=== PATIENT | male | born 1940 | race Caucasian/White ===

== ENCOUNTER 2023-01-02 19:21 | Outpatient (REF) | payer MEDICARE, SELFPAY ==
[2023-01-02 14:44] LABS: Procalcitonin < 0.1 ng/mL
--- OUTSIDE RECORDS SUMMARY | 2023-01-02 19:23 | XMS_ITS | Continuity of Care Document ---
Author Name Unknown Organization [facility] Address [address] [place] [address] Care Team Providers Care Editor Greeting Card Name Role Phone Fazal Ponce Primary Care Physician Encounter NCTY_[place] Date(s): 12/15/22 - 12/15/22 [facility] [address] [place] [address] Encounter Diagnosis Lung nodule(Discharge Diagnosis) - 12/15/22 Discharge Disposition: Home or Self Care Attending Physician: Fazal Ponce DO Admitting Physician: Fazal Ponce DO Allergies, Adverse Reactions, Alerts No Known Medication Allergies Assessment and Plan Future Appointments Future Scheduled Tests Radiology* CT Chest w/o Contrast 12/07/22 Immunizations Given and Recorded Vaccine Date Status Refusal Reason SARS-CoV-2 (COVID-19) mRNA-1273 vaccine 06/06/21 R ecorded SARS-CoV-2 (COVID-19) mRNA-1273 vaccine 10/06/20 R ecorded influenza, unspecified formulation 10/13/20 Record ed influenza, unspecified formulation 04/19/20 Record ed influenza, unspecified formulation 1 05/21/18 Carson rded influenza, unspecified formulation 04/26/17 Record ed SARS-CoV-2 (COVID-19) mRNA BNT-162b2 vax 09/08/20 Recorded influenza virus vaccine, live 05/16/19 Recorded influenza virus vaccine, inactivated 05/05/16 Carson rded influenza virus vaccine, inactivated 05/04/15 Carson rded influenza virus vaccine, inactivated 05/01/14 Carson rded influenza virus vaccine, inactivated 05/15/12 Carson rded influenza virus vaccine, inactivated 05/15/11 Carson rded influenza virus vaccine, inactivated 07/29/09 Carson rded influenza virus vaccine, inactivated 05/27/08 Carson rded influenza virus vaccine, inactivated 05/21/06 Carson rded influenza virus vaccine, inactivated 08/13/00 Carson rded pneumococcal 13-valent conjugate vaccine 07/29/15 Recorded tetanus/diphth/pertuss (Tdap) adult/adol 08/15/12 Recorded Novel [id number], all formulation 08/24/09 Recorded zoster vaccine live 02/03/08 Recorded pneumococcal 23-polyvalent vaccine 09/19/05 Record ed tetanus-diphth toxoids (Td) adult/adol 08/13/00 Re corded 1Result Comment: VIS given: 05-21-2018 VIS published date: TIV/QIV 03/19/2015 Administered by Dilma Hamilton, Community Nutrition Educator 05-21-2018 Medications atorvastatin 40 mg oral tablet 1 tab, Oral, Daily, # 90 tab, 3 Refill(s), [facility]acy: [facility] ([facility]) Start Date: 06/25/22 Status: Ordered Sandrine Low Dose 81 mg oral delayed release tablet 162 mg = 2 tab, Oral, Daily, # 90 tab, 0 Refill(s) Start Date: 02/02/22 Status: Ordered enalapril 5 mg oral tablet See Instructions, TAKE 1 TABLET BY MOUTH DAILY, # 90 tab, 3 Refill(s), Pharmacy: [facility] Start Date: 03/31/22 Status: Ordered meloxicam 15 mg oral tablet 15 mg = 1 tab, Oral, Daily, # 30 tab, 1 Refill(s), Pharmacy: [facility] Start Date: 12/12/22 Status: Ordered Metoprolol Tartrate 50 mg oral tablet 1 tab, Oral, BID, # 180 tab, 3 Refill(s), Pharmacy: [facility] ([facility]) Start Date: 06/16/22 Status: Ordered nitroglycerin 0.3 mg sublingual tablet 0.3 mg = 1 tab, SL, every 5 min, PRN as needed for chest pain, not to exceed 3 doses/15 min--if pain persists, seek medical attention, # 100 tab, 0 Refill(s) Start Date: 02/02/22 Status: Ordered predniSONE 20 mg oral tablet 40 mg = 2 tab, Oral, Daily, # 10 tab, 0 Refill(s), Pharmacy: [facility] Start Date: 12/07/22 Stop Date: 12/12/22 Status: Ordered Problem List Condition Confirmation Course Effective Dates Status H ealth Status Informant Atherosclerosis of coronary artery without angina pectoris Confirmed Active Hyperplasia of prostate Confirmed Active Hypertensive disorder Confirmed Active Mixed hyperlipidemia Confirmed Active Overweight Confirmed Active Peripheral vascular disease Confirmed 10/28/20 Active Respiratory crackles Confirmed 12/09/21 Active Procedures Procedure Date Related Diagnosis Body Site Status Colon cancer screening 1 11/17/19 Completed Colonoscopy 05/13/07 Completed Appendectomy 1963 Completed Angioplasty 2 Completed 1cologuard 2And stents x3 Social History Social History Type Response Tobacco Former tobacco user Tobacco Use:. 1 Sex Male 1quit 1980 smoked for 25 yrs. Patient Care team information Care Team Personnel Name: Fazal Ponce DO Position: Physician Member Role: Primary Care Physician Address: Address: [address] [place] [address]- Care Team Related Persons Name: BRICE SCOTT Address: [place] [address] Address: Home [address] [place] [phone] Name: JIMI CANSECO Address: Home [address] [place], [place] [id number] Address: Mailing [address] [place] [phone] Name: CHIDI CANSECO Address: Home [address] [place], [place] [phone]
--- OUTSIDE RECORDS SUMMARY | 2023-01-02 19:23 | XMS_ITS | Continuity of Care Document ---
Author Name Unknown Organization [facility] Address [address] [place] [address] Care Team Providers Care Mud Analysis Operator Name Role Phone Fazal Ponce Primary Care Physician Encounter NCTY_[place] Date(s): 12/07/22 - 12/07/22 [facility] [address] [place] [address] Discharge Disposition: Home or Self Care Attending Physician: Fazal Ponce DO Admitting Physician: Fazal Ponce DO Referring Physician: Fazal Ponce DO Allergies, Adverse Reactions, Alerts No Known Medication Allergies Assessment and Plan Future Appointments Future Scheduled Tests Radiology* CT Chest w/o Contrast 12/07/22 * CT Chest w/o Contrast 12/15/22 Immunizations Given and Recorded Vaccine Date Status [...] Recorded tetanus/diphth/pertuss (Tdap) adult/adol 08/15/12 Recorded Novel [id number], all formulation 08/24/09 Recorded zoster vaccine live 02/03/08 Recorded pneumococcal 23-polyvalent vaccine 09/19/05 Record ed tetanus-diphth toxoids (Td) adult/adol 08/13/00 Re corded 1Result Comment: VIS given: 05-21-2018 VIS published date: TIV/QIV 03/19/2015 Administered by Dilma Hamilton, Ferryboat Deckhand 05-21-2018 Medications atorvastatin 40 mg oral tablet 1 tab, Oral, Daily, # 90 tab, 3 Refill(s), [facility]acy: [facility] ([facility]) Start Date: 06/25/22 Status: Ordered Sandrine Low Dose 81 mg oral delayed release tablet 162 mg = 2 tab, Oral, Daily, # 90 tab, 0 Refill(s) Start Date: 02/02/22 Status: Ordered enalapril 5 mg oral tablet See Instructions, TAKE 1 TABLET BY MOUTH DAILY, # 90 tab, 3 Refill(s), [facility] Start Date: 03/31/22 Status: Ordered Metoprolol Tartrate 50 mg oral tablet 1 tab, Oral, BID, # 180 tab, 3 Refill(s), Pharmacy: [facility] ([employer] [facility]) Start Date: 06/16/22 Status: Ordered [...] Daily, # 10 tab, 0 Refill(s), Pharmacy: [id number] Start Date: 12/07/22 Stop Date: 12/12/22 [...] Angioplasty 2 Completed 1cologuard 2And stents x3 Results Laboratory List Name Date Automated Diff 12/07/22 Basic Metabolic Panel (BMP) 12/07/22 C-Reactive Protein High Sensitivity (CRP High Sensitivity (CV Risk)) 12/07/22 CBC w/ Diff 12/07/22 Ferritin 12/07/22 PSA Screen 12/07/22 Most recent to oldest [Reference Range]: 1 WBC [5.0-10.0 x10^3/mcL] 11.0 x10^3/mcL *HI* (12/07/22 1:55 PM) RBC [4.6-6.0 x10^6/mcL] 4.4 x10^6/mcL *LOW* (12/07/22 1:55 PM) Neutro Auto [40.0-75.0 %] 65.9 % (12/07/22 1:55 PM) Lymph Auto [20.0-50.0 %] 17.3 % *LOW* (12/07/22 1:55 PM) Sutton Auto [2.0-15.0 %] 11.5 % (12/07/22 1:55 PM) Basophil Auto [0.0-1.0 %] 1.0 % (12/07/22 1:55 PM) BUN [7-18 mg/dL] 20 mg/dL *HI* (12/07/22 1:55 PM) Glucose Level [74-106 mg/dL] 91 mg/dL (12/07/22 1:55 PM) Potassium Level [3.5-5.1 mmol/L] 3.8 mmo l/L (12/07/22 1:55 PM) MCV [80.0-96.0] 97.5 *HI* (12/07/22 1:55 PM) MCHC [31.0-35.0 g/dL] 32.6 g/dL (12/07/22 1:55 PM) Sodium Level [136-145 mmol/L] 141 mmol/L (12/07/22 1:55 PM) Hct [41.0-51.0 %] 43.3 % (12/07/22 1:55 PM) Calcium Level [8.5-10.1 mg/dL] 9.0 mg/dL (12/07/22 1:55 PM) MCH [26.0-32.0 pg] 31.8 pg (12/07/22 1:55 PM) Neutro Absolute 7.2 x10^3/mcL *NA* (12/07/22 1:55 PM) Hgb [14.0-18.0 g/dL] 14.1 g/dL (12/07/22 1:55 PM) Ferritin Level [26-388 ng/mL] 439 ng/mL *HI* (12/07/22 1:55 PM) Platelets [130-450 x10^3/mcL] 304 x10^3/ mcL (12/07/22 1:55 PM) CO2 [21-32 mmol/L] 31 mmol/L (12/07/22 1:55 PM) eGFR Non-AA [>=60] 69 (12/07/22 1:55 PM) eGFR AA [>=60] 69 (12/07/22 1:55 PM) Chloride Level [98-107 mmol/L] 103 mmol/ L (12/07/22 1:55 PM) RDW-CV [11.5-17.0 %] 12.5 % (12/07/22 1:55 PM) Imm Gran Auto [0.0-0.9 %] 0.3 % (12/07/22 1:55 PM) CRP High Sens [0.00-3.00 mg/L] 10.77 mg/ L *HI* (12/07/22 1:55 PM) Creatinine Level [0.70-1.30 mg/dL] 1.08 mg/dL (12/07/22 1:55 PM) PSA Total Screening [0.00-4.00 ng/mL] 1. 53 ng/mL (12/07/22 1:55 PM) Eos, Auto [1.0-6.0 %] 4.0 % (12/07/22 1:55 PM) Social History Social History Type Response Tobacco Former tobacco user Tobacco Use:. 1 Sex Male 1quit 1980 smoked for 25 yrs. Patient Care team information Care Team Personnel Name: Fazal Ponce DO Position: Physician Member Role: Primary Care Physician Address: Address: [address] [place] [address]- Care Team Related Persons Name: BRICE SCOTT Address: [facility] [address] [facility] [address] Address: Home [address] [place], [place] [phone] Name: JIIM CANSECO Address: Home [address] [place], [place] [id number] Address: Mailing [address] [place] [phone] Name: CHIDI CANSECO Address: Home [address] [place], [place] [phone]
--- OUTSIDE RECORDS SUMMARY | 2023-01-02 19:23 | XMS_ITS | Continuity of Care Document ---
Author Name Unknown Organization [facility] Address [address] [place] [address] Care Team Providers Care Oil Well Perforator Operator Name Role Phone Fazal Ponce Primary Care Physician [phone] Encounter NCTY_LA Date(s): 08/23/22 - 08/23/22 [facility] [address] [place] [address] Encounter Diagnosis Lung nodule(Discharge Diagnosis) - 08/23/22 Discharge Disposition: Home or Self Care Attending Physician: Fazal Ponce DO Admitting Physician: Fazal Ponce DO Referring Physician: Fazal Ponce DO Allergies, Adverse Reactions, Alerts No Known Medication Allergies Assessment and Plan Future Appointments Immunizations Given and Recorded Vaccine Date Status [...] Recorded tetanus/diphth/pertuss (Tdap) adult/adol 08/15/12 Recorded Novel [id number], all formulation 08/24/09 Recorded zoster vaccine live 02/03/08 Recorded pneumococcal 23-polyvalent vaccine 09/19/05 Record ed tetanus-diphth toxoids (Td) adult/adol 08/13/00 Re corded 1Result Comment: VIS given: 05-21-2018 VIS published date: TIV/QIV 03/19/2015 Administered by Dilma Hamilton, [employer] 05-21-2018 Medications atorvastatin 40 mg oral tablet 1 tab, Oral, Daily, # 90 tab, 3 Refill(s), Pharmacy: [facility] ([facility] [facility]) Start Date: 06/25/22 Status: Ordered Sandrine Low Dose 81 mg oral delayed release tablet 162 mg = 2 tab, Oral, Daily, # 90 tab, 0 Refill(s) Start Date: 02/02/22 Status: Ordered enalapril 5 mg oral tablet See Instructions, TAKE 1 TABLET BY MOUTH DAILY, # 90 tab, 3 Refill(s), [facility] Start Date: 03/31/22 Status: Ordered Metoprolol Tartrate 50 mg oral tablet 1 tab, Oral, BID, # 180 tab, 3 Refill(s), Pharmacy: [facility] ([facility]) Start Date: 06/16/22 Status: Ordered nitroglycerin 0.3 mg sublingual tablet 0.3 mg = 1 tab, SL, every 5 min, PRN as needed for chest pain, not to exceed 3 doses/15 min--if pain persists, seek medical attention, # 100 tab, 0 Refill(s) Start Date: 02/02/22 Status: Ordered Problem List Condition Confirmation Course [...] for 25 yrs. Patient Care team information Personnel Name: Fazal Ponce DO Address: Address: [address] [place], [place] [address]
--- OUTSIDE RECORDS SUMMARY | 2023-01-02 19:23 | XMS_ITS | Continuity of Care Document ---
Author Name Unknown Organization [facility] Address [address] [place] [address] Care Team Providers Care Fitness Leader Name Role Phone Fazal Ponce Primary Care Physician Encounter NCTY_[place] Date(s): 12/01/22 - 12/01/22 [facility] [address] [place] [address] Encounter Diagnosis Lumbar sprain(Discharge Diagnosis) - 12/01/22 Discharge Disposition: Home or Self Care Attending Physician: Daryl Crum Admitting Physician: Daryl Crum Referring Physician: Daryl Crum Allergies, Adverse Reactions, Alerts No Known Medication Allergies Assessment and Plan Future Appointments Future Scheduled Tests Radiology* CT Chest w/o Contrast 12/15/22 Immunizations Given [...] Recorded tetanus/diphth/pertuss (Tdap) adult/adol 08/15/12 Recorded Novel [id number], all formulation 08/24/09 Recorded zoster vaccine live 02/03/08 Recorded pneumococcal 23-polyvalent vaccine 09/19/05 Record ed tetanus-diphth toxoids (Td) adult/adol 08/13/00 Re corded 1Result Comment: VIS given: 05-21-2018 VIS published date: TIV/QIV 03/19/2015 Administered by Dilma Hamilton, Jack Machine Operator 05-21-2018 Medications atorvastatin 40 mg oral tablet 1 tab, Oral, Daily, # 90 tab, 3 Refill(s), Pharmacy: [facility] ([facility]) Start Date: 06/25/22 Status: Ordered Sandrine Low Dose 81 mg oral delayed release tablet 162 mg = 2 tab, Oral, Daily, # 90 tab, 0 Refill(s) Start Date: 02/02/22 Status: Ordered cyclobenzaprine 10 mg oral tablet 10 mg = 1 tab, Oral, TID, PRN as needed for spasm, # 30 tab, 0 Refill(s), 12/06/22 14:30:00 EDT, Pharmacy: [facility] Start Date: 11/22/22 Stop Date: 12/06/22 Status: Ordered enalapril 5 mg oral tablet See Instructions, TAKE 1 TABLET BY MOUTH DAILY, # 90 tab, 3 Refill(s), [facility] Start Date: 03/31/22 Status: Ordered meloxicam 15 mg oral tablet 15 mg = 1 tab, Oral, Daily, PRN pain, # 30 tab, 0 Refill(s), 12/06/22 14:30:00 EDT, Pharmacy: [facility] Start Date: 11/22/22 Stop Date: 12/06/22 Status: Ordered Metoprolol Tartrate 50 mg oral tablet 1 tab, Oral, BID, # 180 tab, 3 Refill(s), Pharmacy: [facility] ([facility]) Start Date: 06/16/22 Status: Ordered [...] Member Role: Primary Care Physician Address: Address: [address] [place] [address]- Care Team Related Persons Name: BRICE SCOTT Address: Alternate [address] [place] [address] Address: Home [address] [place], [place] [phone] Name: JIMI CANSECO Address: Home [address] [place], [place] [id number] Address: Mailing [address] [place] [phone] Name: CHIDI CANSECO Address: Home [address] [place], [place] [phone]
--- OUTSIDE RECORDS SUMMARY | 2023-01-02 19:23 | XMS_ITS | Continuity of Care Document ---
Author Name Unknown Organization [facility] Address [address] [place] [address] Care Team Providers Care Rental Clerk Tool And Equipment Name Role Phone Fazal Ponce Primary Care Physician [phone] Encounter NCTY_[place] Date(s): 12/13/22 - 12/13/22 [facility] [address] [place] [address] Encounter Diagnosis Back pain(Discharge Diagnosis) - 12/13/22 Discharge Disposition: Home or Self Care Attending [...] Recorded tetanus/diphth/pertuss (Tdap) adult/adol 08/15/12 Recorded Novel [id number], all formulation 08/24/09 Recorded zoster vaccine live 02/03/08 Recorded pneumococcal 23-polyvalent vaccine 09/19/05 Record ed tetanus-diphth toxoids (Td) adult/adol 08/13/00 Re corded 1Result Comment: VIS given: 05-21-2018 VIS published date: TIV/QIV 03/19/2015 Administered by Dilma Hamilton, Diesel Dinkey Operator 05-21-2018 Medications atorvastatin 40 mg oral tablet 1 tab, Oral, Daily, # 90 tab, 3 Refill(s), Pharmacy: [facility] ([facility]) Start Date: 06/25/22 Status: Ordered Sandrine Low Dose 81 mg oral delayed release tablet 162 mg = 2 tab, Oral, Daily, # 90 tab, 0 Refill(s) Start Date: 02/02/22 Status: Ordered enalapril 5 mg oral tablet See Instructions, TAKE 1 TABLET BY MOUTH DAILY, # 90 tab, 3 Refill(s), [facility] Start Date: 03/31/22 Status: Ordered meloxicam 15 mg oral tablet 15 mg = 1 tab, Oral, Daily, # 30 tab, 1 Refill(s), Pharmacy: [facility] Start Date: 12/12/22 Status: Ordered Metoprolol Tartrate 50 mg oral tablet 1 tab, Oral, BID, # 180 tab, 3 Refill(s), Pharmacy: [facility] ([facility]) Start Date: 06/16/22 Status: Ordered [...] Daily, # 10 tab, 0 Refill(s), Pharmacy: [facility] Start Date: 12/07/22 Stop Date: 12/12/22 [...] Member Role: Primary Care Physician Address: Address: [address] [place] [address]- Care Team Related Persons Name: BRICE SCOTT Address: [place] [address] [place] [address] Address: Home [address] [place] [phone] Name: JIMI CANSECO Address: Home [address] [place], [place] [id number] Address: Mailing [address] [phone] Name: CHIDI CANSECO Address: Home [address] [place], [place] [phone]
--- OUTSIDE RECORDS SUMMARY | 2023-01-02 19:23 | XMS_ITS | Continuity of Care Document ---
Author Name Unknown Organization [facility] Address [address] [place] [address] Care Team Providers Care Heliarc Welder Name Role Phone Fazal Ponce Primary Care Physician Encounter NCTY_[place] Date(s): 12/07/22 - 12/07/22 [facility] [address] [place] [address] Discharge Disposition: Home Allergies, Adverse Reactions, Alerts No Known Medication [...] Recorded tetanus/diphth/pertuss (Tdap) adult/adol 08/15/12 Recorded Novel [id number]-[id number], all formulation 08/24/09 Recorded zoster vaccine live 02/03/08 Recorded pneumococcal 23-polyvalent vaccine 09/19/05 Record ed tetanus-diphth toxoids (Td) adult/adol 08/13/00 Re corded 1Result Comment: VIS given: 05-21-2018 VIS published date: TIV/QIV 03/19/2015 Administered by Dilma Hamilton, Rag Baler 05-21-2018 Medications atorvastatin 40 mg oral tablet 1 tab, Oral, Daily, # 90 tab, 3 Refill(s), Pharmacy: [facility] ([facility]) Start Date: 06/25/22 Status: Ordered Sandrine Low Dose 81 mg oral delayed release tablet 162 mg = 2 tab, Oral, Daily, # 90 tab, 0 Refill(s) Start Date: 02/02/22 Status: Ordered enalapril 5 mg oral tablet See Instructions, TAKE 1 TABLET BY MOUTH DAILY, # 90 tab, 3 Refill(s), [facility] Start Date: 03/31/22 Status: Ordered Metoprolol Tartrate 50 mg oral tablet 1 tab, Oral, BID, # 180 tab, 3 Refill(s), Pharmacy: [facility] ([facility]) Start Date: 06/16/22 Status: Ordered [...] Daily, # 10 tab, 0 Refill(s), Pharmacy: [facility] Start Date: 12/07/22 Stop Date: 12/12/22 [...] Member Role: Primary Care Physician Address: Address: [address] [place] [address]- Care Team Related Persons Name: BRICE SCOTT Address: [place] [address] [place] [address] Address: Home [facility] [place], [place] [phone] Name: JIMI CANSECO Address: [address] [place], [place] [phone] Address: Mailing [address] [phone] Name: CHIDI CANSECO Address: Home [address] [place], [place] [phone]
[2023-01-03 19:15] LABS: Rheumatoid Factor <8.6 IU/mL (<12.0)
[2023-01-04 09:57] LABS: Cyclic Citrullinated Peptide <2.5 U/mL (<5.0)
[2023-01-05 11:40] LABS: Myeloperoxidase Ab IgG <0.2 U; Proteinase 3 Ab (PR3) <0.2 U
[2023-01-05 14:49] LABS: Fungitell Qualitative Negative (Negative); Fungitell Quantitative Value <31 pg/mL (<60 pg/mL)
[2023-01-05 15:28] LABS: ANA Interpretation Positive (Negative); ANA Titer Pattern 1:320 Homogeneous
[2023-01-06 12:28] LABS: Blastomyces Ag Result Not Detected; Blastomyces Ag Value Not Detected
== END 2023-01-02 19:22 | disposition home or self-care (01) ==
LOC: LBN 19:21
PROVIDERS: PCP Internal Medicine; Visit Provider Student in an Organized Health Care Education/Training Program
DX: R91.8 Other nonspecific abnormal finding of lung field (principal)
CPT/HCPCS: 84145; 86200; 87449; 83516; 86038; 86431; 87385

== ENCOUNTER 2023-02-19 08:45 | Inpatient (IN) | payer MEDICARE, SELFPAY ==
[2023-02-19] VITALS (43 sets, daily range): BP systolic 99–162; BP diastolic 55–142; PULSE 56–156; RESP 16–32; TEMP 36.5–36.9; O2SAT 92–97
--- NOTE | 2023-02-19 08:45 | RT.EKG_ITS ---
APPROVED REPORT Exam: Resting ECG Reason for Exam: syncope Patient Location: E HR:136 bpm ECG Measurements Heart Rate 136 AXIS [place] [id number] P [id number] QRSd 105 QRS -30 QT 313 T 77 QTc 472 Conclusion Atrial fibrillation...V-rate 107-158, irreg A-activity Inferior infarct, old...Q >35mS, II III aVF
[2023-02-19] MEDS: Normal Saline 1,000 ML 1000 ML IV (09:00)
--- NOTE | 2023-02-19 09:00 | DI.RAD_ITS ---
Exam(s) XR PORTABLE CHEST AP EXAM: XR PORTABLE CHEST AP CLINICAL HISTORY: AF, CA, near syncope. TECHNIQUE: 2D digital imaging was performed. COMPARISON: CT CT CHEST WO CONTRAST from 12/15/2022 . Outside study. FINDINGS: Single AP portable view. Heart size is upper normal. The mediastinum is not widened. There is mass density in the right lower lobe evident. Measures approximately 8 by 7 cm. No pleural effusions. Left lung is clear. No pulmonary edema. No pneumothorax. No fractures. IMPRESSION: Right lower lobe mass infiltrate. Most probably corresponds to finding seen on outside CT scan of . DATA REPOSITORY: RADIATION DOSE DELIVERED:
[2023-02-19] MEDS: dilTIAZem 25 MG/5 ML VIAL (09:04)
[2023-02-19 09:13] LABS: Abs Immature Grans 0.12 10^3/uL (0.0-0.06); Absolute Basophil Count 0.07 10^3/uL (0.0-0.2); Absolute Eosinophil Count 0.44 10^3/uL (0.0-0.7); Absolute Monocyte Count 1.29 10^3/uL (0.1-0.8); Absolute Neutrophil Count 11.91 10^3/uL (1.2-6.7); Basophils % 0.5; HCT 45.3 % (40.0-50.0); HGB 14.8 g/dL (13.5-17.5); Immature Grans % 0.8; Lymphocytes % 4.8; MCH 30.4 pg (27.0-33.0); MCHC 32.7 % (32.0-36.0); MCV 93 fL (80-95); MPV 9.9 fL (8.0-11.0); Monocytes % 8.9; Platelet Count 234 10^3/uL (130-400); RBC 4.87 10^6/uL (4.36-5.78); RDW 12.7 % (11.8-14.1); RDW-SD 43.1 fL; WBC 14.53 10^3/uL (4.4-10.8)
[2023-02-19] MEDS: HYDROmorphone 2 MG/ML SYR 0.5 MG IVP (09:19)
[2023-02-19] MEDS: Ondansetron 4 MG/2 ML VIAL IVP (09:19)
[2023-02-19 09:37] LABS: INR 1.4 (0.9-1.1); PTT Activated 28.7 sec (21.5-31.9)
--- NOTE | 2023-02-19 09:37 | ED.GENADUL_ITS ---
Discharge Plan Disposition Patient Disposition: Admit to [facility] Discharge Details Clinical Impression: Atrial fibrillation with rapid ventricular response Admit Date/Time: 02/19/23 10:58 Admit Provider: Jean-Claude Kenny Attending Provider: Jean-Claude Kenny Primary Care Provider: Fazal Ponce ED Provider: Karen Cummins Medical Decision Making Patient has been reevaluated multiple times. 40 minutes ago his heart rate was 102. It is now hanging around 110. At his age I do not feel like he needs additional diltiazem but will check with the hospitalist on whether they want to do a drip. His medical history is complicated enough that I think he needs admission. This was discussed with Dr. Kenny who concurs with the plan. Test results were discussed with the patient, his , and daughter as well. Medical Records Medical records reviewed: Yes I reviewed the patient's medical records. Imaging Data Radiologic Study: Attestation: I personally reviewed and interpreted this imaging study as follows: (CXR: mass R lower lung with associated scarring) Radiologist's impression: Exam(s) XR PORTABLE CHEST AP EXAM:? XR PORTABLE CHEST AP CLINICAL HISTORY: ? AF, CA, near syncope. ? TECHNIQUE:? 2D digital imaging was performed. COMPARISON:? CT CT CHEST WO CONTRAST from 12/15/2022 .? Outside study. FINDINGS: Single AP portable view. Heart size is upper normal.? The mediastinum is not widened. There is mass density in the right lower lobe evident.? Measures approximately 8 by 7 cm.? No pleural effusions.? Left lung is clear.? No pulmonary edema.? No pneumothorax.? No fractures. IMPRESSION: Right lower lobe mass infiltrate.? Most probably corresponds to finding seen on outside CT scan of 12/15/2022. Lab Data Lab results reviewed: Yes I reviewed the patient's lab results. Lab results narrative: White blood cell count 14.5 thousand with 82 polys and 5 lymphs. ECG Data Attestation: I personally reviewed and interpreted this ECG (s) as follows: (EKG shows atrial fibrillation at 136, Q waves inferiorly, no old EKGs for comparison) HPI General Date/Time Provider Initiated Documentation: 02/19/23 08:51 . HPI Narrative: This 82-year-old male patient with recently diagnosed lung cancer presents after a near syncopal episode at the [facility]. Patient reports he just got finished with 5 rounds of radiation to his spine. The cancer is metastatic. Reportedly he had a blister near the area of radiation but I only see a small area of skin breakdown. Today he was starting his chemotherapy infusion. His brought him in a wheelchair into the cancer center. He was inside and his back began hurting more and he felt like he was going to faint. This has happened several times in the past and is not new. He became diaphoretic and EMS was called. On arrival in the ED the patient had a heart rate of 150 and was noted on EKG to be in atrial fibrillation at a rate of 136. He complained of persistent lightheadedness although was feeling improved in the ED. He denied headache or difficulty breathing. He has no leg pain or edema. He denies palpitations and cannot feel his heart racing. 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 He also has a history of idiopathic pulmonary fibrosis. Patient reports that he is an ex- smoker x41 years. Related Data Home Medications Medication Instructions Recorded Confirmed aspirin 81 mg tablet,delayed 162 mg PO DAILY 12/29/22 02/19/23 release (Sandrine Low Dose Aspirin) atorvastatin 40 mg tablet 40 mg PO DAILY 12/29/22 02/19/23 enalapril maleate 5 mg tablet 5 mg PO DAILY 12/29/22 02/19/23 metoprolol tartrate 50 mg tablet 50 mg PO BID 12/29/22 02/19/23 nitroglycerin 0.3 mg sublingual 0.3 mg sublingual Q5M PRN 12/29/22 02/19/23 tablet acetaminophen 500 mg tablet 1,000 mg PO Q6H PRN 02/19/23 02/19/23 bisacodyl 10 mg rectal suppository 10 mg OR DAILY 02/19/23 02/19/23 buprenorphine 20 mcg/hour weekly 1 patch transdermal Q7D 02/19/23 02/19/23 transdermal patch dronabinol 5 mg capsule 5 mg PO BID 02/19/23 02/19/23 gabapentin 300 mg capsule 300 mg PO TID 02/19/23 02/19/23 hydromorphone 2 mg tablet 6 mg PO Q6H PRN Pain 02/19/23 02/19/23 (Dilaudid) polyethylene glycol 17 pwd miscellaneous DAILY 02/19/23 02/19/23 prochlorperazine maleate 5 mg 2.5 mg PO BID 02/19/23 02/19/23 tablet (Compazine) Allergies Allergy/AdvReac Type Severity Reaction Status Date / Time No Known Allergies Allergy Verified 02/19/23 09:09 General Stated Complaint: Dizzy/Sync KAYLA: 2 Review of Systems Constitutional Constitutional: Denies chills, Reports excessive sweating, Denies fever(s), Denies headache(s) and Denies weakness Eyes Eyes: Denies diplopia and Reports other (no redness) ENT Ears, Nose, Mouth, and Throat: Denies vertigo, Reports dizziness, Denies otalgia, Denies headache(s), Denies nasal congestion, Denies nasal discharge, Denies neck pain and Denies sore throat Cardiovascular Cardiovascular: Denies chest pain, Denies palpitations and Denies dyspnea Respiratory Respiratory: Denies cough and Denies dyspnea Gastrointestinal Gastrointestinal: Denies abdominal pain, Denies diarrhea, Denies nausea and Denies vomiting Genitourinary Genitourinary: Denies difficulty urinating and Denies dysuria Musculoskeletal Musculoskeletal: Denies myalgias, Denies muscle weakness, Denies neck pain, Denies numbness and Reports other (edema) Integumentary/Breasts Skin/Breast: Denies change in pigmentation, Denies rash and Reports other (Pale and diaphoretic) Neurologic Neurologic: Denies vertigo, Reports dizziness, Denies headache(s), Denies numbness, Denies weakness and Reports other (Has lightheadedness) Endocrine Endocrine: Reports excessive sweating and Denies palpitations PFSH All Active Problems (Updated 02/19/23 @ 10:53 by Karen Cummins MD) Atrial fibrillation with rapid ventricular response (Acute) Pleural effusion (Acute) Lung mass (Acute) IPF (idiopathic pulmonary fibrosis) (Acute) History of angioplasty (Acute) Respiratory crackles (Acute) Peripheral vascular disease (Chronic) Overweight (Acute) Mixed hyperlipidemia (Acute) Hypertensive disorder (Chronic) Hyperplasia of prostate (Acute) Atherosclerosis of coronary artery without angina pectoris (Acute) Surgical History History of colonoscopy Hx of appendectomy Family History Brother Bipolar disorder Sister Bipolar disorder Coronary artery disease involving coronary bypass graft Father Myocardial infarction Social History Smoking/Tobacco Use Status: Former Tobacco Use tobacco type: cigarettes Quit Date: 08/13/80 Tobacco: How many years used: 25 Smoking risk assessment performed?: Yes Alcohol Intake: never Drug use: Never Substance use type: does not use Housing: house Do you feel safe at home: Yes Do you feel safe in your relationship?: Yes Exam Const General: no acute distress, well developed, well groomed and not in acute distress Nutritional Appearance: well nourished Orientation: alert and oriented x3 Other: Smiling and interactive, starting to pink up HENMT Head: normocephalic and atraumatic Ears: external ears normal Mouth: oropharynx normal and moist mucous membranes Throat: posterior oropharynx normal Eyes Conjunctivae: conjunctivae normal Neck Neck: full ROM and supple Chest Chest: normal inspection of the chest Resp Effort & Inspection: normal respiratory effort Auscultation: rales (bibasilar rales evident) Cardio Rate: tachycardic Rhythm: abnormal rhythm (Irregularly irregular) Heart Sounds: no murmurs and no rubs GI Inspection: normal to inspection Palpation: soft, nontender and other (non distended) Auscultation: normal bowel sounds Skin General skin exam: no rashes or lesions noted and other (pink, warm, dry) Neuro General: patient alert, patient awake and patient oriented x3 Speech: speech normal Motor: other (JOHANSEN) Sensory Exam: no sensory deficits noted Extrem General: normal to inspection, full ROM and pedal edema present Psych Mental Status: mental status grossly normal Speech and Movement: speech and movement normal Affect: normal affect Course Vital Signs Vital signs: Vital Signs Temperature 36.5 C 02/19/23 08:48 Pulse 150 H 02/19/23 08:48 Respiratory Rate 26 H 02/19/23 08:48 Blood Pressure 154/84 H 02/19/23 08:48 Pulse Oximetry 97 02/19/23 08:48 Temperature 36.5 C 02/19/23 08:48 Temperature Source Oral 02/19/23 08:48 Pulse 152 H 02/19/23 09:04 Respiratory Rate 21 02/19/23 09:06 Respiratory Effort Normal 02/19/23 09:06 Respiratory Depth Normal 02/19/23 09:06 Respiratory Pattern Normal 02/19/23 09:06 Blood Pressure 130/73 02/19/23 09:04 Blood Pressure Position Sitting 02/19/23 08:48 Pulse Oximetry 97 02/19/23 08:48 Oxygen Delivery Method Room Air 02/19/23 08:48 Oxygen Flow Rate 0 02/19/23 08:48 Pain Level 0 02/19/23 08:48 Lab/Test Results Lab/Test Results: Laboratory Tests Range/Units 02/19/23 02/19/23 02/19/23 08:50 09:05 12:05 WBC (4.4-10.8) 10^3/uL 14.53 H RBC (4.36-5.78) 10^6/uL 4.87 Hgb (13.5-17.5) g/dL 14.8 Hct (40.0-50.0) % 45.3 MCV (80-95) fL 93 MCH (27.0-33.0) pg 30.4 MCHC (32.0-36.0) % 32.7 RDW (11.8-14.1) % 12.7 Plt Count (130-400) 10^3/uL 234 MPV (8.0-11.0) fL 9.9 Immature Gran % 0.8 Neutrophils % 82.0 Lymphocytes % 4.8 Monocytes % 8.9 Eosinophils % 3.0 Basophils % 0.5 Nucleated RBC % (0.0-0.3) % 0.0 Absolute Neutrophils (1.2-6.7) 10^3/uL 11.91 H Absolute Lymphocytes (1.2-3.4) 10^3/uL 0.70 L Absolute Monocytes (0.1-0.8) 10^3/uL 1.29 H Absolute Eosinophils (0.0-0.7) 10^3/uL 0.44 Absolute Basophils (0.0-0.2) 10^3/uL 0.07 Sodium Cancelled Potassium Cancelled Chloride Cancelled Carbon Dioxide Cancelled Anion Gap Cancelled BUN Cancelled Creatinine Cancelled Est GFR (CKD-EPI 2020) Cancelled Glucose Cancelled Calcium Cancelled Total Bilirubin Cancelled AST Cancelled ALT Cancelled Alkaline Phosphatase Cancelled Troponin I Cancelled Cancelled Total Protein Cancelled Albumin Cancelled
[2023-02-19] MEDS: dilTIAZem 25 MG/5 ML VIAL 10 MG IVP (09:38)
[2023-02-19 09:41] LABS: ALT 19 U/L (16-63); AST 22 U/L (15-37); Albumin 2.6 g/dL (3.4-5.0); Alkaline Phosphatase 111 U/L (46-116); Anion Gap 11.9 mmol/L (3-11); BUN 25 mg/dL (7-18); Bilirubin, Total 0.8 mg/dL (0.2-1.0); CO2 29.1 mmol/L (21.0-32.0); Calcium 9.6 mg/dL (8.5-10.1); Chloride 97 mmol/L (98-107); Estimated GFR 75.61 (mL/min/1.73m2); Glucose 139 mg/dL (74-106); Potassium 3.5 mmol/L (3.5-5.1); Sodium 138 mmol/L (136-145); Total Protein 7.5 g/dL (6.4-8.2); Troponin I < 50 ng/L (<or=60)
[2023-02-19 09:48] LABS: FREE T4 1.33 ng/dL (0.76-1.46); TSH 1.93 uIU/mL (0.36-3.74)
[2023-02-19 13:33] LABS: Troponin I < 50 ng/L (<or=60)
[2023-02-19] MEDS: HYDROmorphone 2 MG TAB 6 MG PO (15:04)
[2023-02-19] MEDS: Dronabinol 2.5 MG CAP 5 MG PO (15:44)
[2023-02-19] MEDS: Normal Saline Flush 10 ML SYR IVP (15:44)
--- NOTE | 2023-02-19 16:00 | PDOC.CMIN ---
Date of service: 02/19/23 Time of Service: 16:00 Care Management Initial Assmt Initial Assessment REASON FOR HOSPITALIZATION:: Afib with rvr PREVIOUS FUNCTIONAL STATUS/SOCIAL/FAMILY SUPPORTS:: Resides in [place] with , Zahra-has not previously been inpatient at [facility]. Doroteo was attending his first chemo appointment for Lung CA with mets (already completed five rounds of spinal radiation) and was sent to ED from [facility] due to increased pain and feeling as he was going to faint. Found to be in Afib-admitted to Med/Surg for further treatment and observation. CURRENT FUNCTIONAL STATUS:: Doroteo was recently admitted to Med/Surg floor. ADVANCE DIRECTIVES:: None on file. Has patient been provided with info about the portal/API?: No Did the patient sign up for the portal?: No (Will be offered. ) CODE STATUS:: Full Code INSURANCE COVERAGE / FINANCIAL ISSUES:: Medicare AARP/C replacement CURRENT HOME/COMMUNITY SERVICES/EQUIPMENT:: [facility] O/P Oncology radiation, chemotherapy PRIMARY CARE PHYSICIAN:: Fazal Ponce POTENTIAL DISCHARGE NEEDS:: Follow up appointments, possible palliative discussion PATIENT/FAMILY EDUCATION NEEDS:: Review discharge instructions, discuss Ask Me Three. ANTICIPATED BARRIERS TO DISCHARGE:: None identified. TRANSPORTATION:: Via private vehicle with family. PLAN:: Doroteo will be monitored; anticipate medication adjustments for Afib with RVR; PCP follow up, possible Palliative consult. CM will continue to follow and support discharge planning considerations. PFSH All Active Problems (Updated 02/19/23 @ 10:53 by Karen Cummins MD) Atrial fibrillation with rapid ventricular response (Acute) Pleural effusion (Acute) Lung mass (Acute) IPF (idiopathic pulmonary fibrosis) (Acute) History of angioplasty (Acute) Respiratory crackles (Acute) Peripheral vascular disease (Chronic) Overweight (Acute) Mixed hyperlipidemia (Acute) Hypertensive disorder (Chronic) Hyperplasia of prostate (Acute) Atherosclerosis of coronary artery without angina pectoris (Acute) Surgical History History of colonoscopy Hx of appendectomy Family History Brother Bipolar disorder Sister Bipolar disorder Coronary artery disease involving coronary bypass graft Father Myocardial infarction Social History Smoking/Tobacco Use Status: Former Tobacco Use tobacco type: cigarettes Quit Date: 08/13/80 Tobacco: How many years used: 25 Smoking risk assessment performed?: Yes Alcohol Intake: never Drug use: Never Substance use type: does not use Housing: house Do you feel safe at home: Yes Do you feel safe in your relationship?: Yes
--- NOTE | 2023-02-19 18:29 | W.PM.HP.N ---
Date of service: 02/19/23 Time of Service: 18:30 Assessment and Plan Assessment and plan (1) Atrial fibrillation with rapid ventricular response: Status: Acute Assessment and plan: No known previous h/o Afib. He was given 2 IV pushes of 10mg cardizem in the ED with ventricular response decreasing into the low 100's. Pt is asymptomatic. Will increase his metoprolol to 100mg at HS and continue with 50mg in the AM. He was given 1L IV fluids in the ED. Electrolytes normal. Telemetry. No anticoagulation at this time. No echocardiogram for many years per pt. Echo ordered. (2) Hypertensive disorder: Status: Chronic Assessment and plan: Cont metoprolol with a dose increase. Monitor. (3) Atherosclerosis of coronary artery without angina pectoris: Status: Acute Assessment and plan: Cont ASA, metoprolol and atorvastatin. No anginal sxs. (4) Lung mass: Status: Acute Assessment and plan: s/p radiation treatments to vertebral mets. He was to have received his first round of chemotx today at [facility] but had the near syncopal episode and was sent to ED. Family to discuss rescheduling of tx. ANC normal though he does have an elevated WBC count. No evidence of acute process on CXR. No urinary symptoms. Monitor WBC count and temp. (5) Anorexia: Status: Acute Assessment and plan: Cancer related. Poor sense of taste. Marinol 5mg BID (6) Discharge planning issues: Status: Acute Assessment and plan: DNR/DNI When ready for D/C; home. History of Present Illness History of Present Illness Chief Complaint: Near syncope Narrative: The is an 82 yo male with recently diagnosed lung cancer with metastases to vertabrae, anorexia, CAD, IPF, PAD, HLD, HTN. He presented to the ED after experiencing a presyncopal episode while at the [facility]; there for his first round of chemotherapy. He stated his back starting hurting and he felt like he was going to pass out. He endorsed having experienced this before. He then, however, became diaphoretic. EMS called. In the ED his was found to be in atrial fibrillation with a rapid ventricular response in the 130's. The lightheaded sensation that he presented with resolved while in the ED. No palpitations, CP, F/C. No cough/sputum/shortness of air. One liter IV NS administered. He received 2 doses of 10mg IV diltiazem with ventricular rate decreasing into the low 100's - 110's. Lytes normal. BUN 25. Creatinine 1.0. CXR with RLL infiltrate jeniffer appears to correspond to findng seen on outside CT scan of 12/15/22. WBC count was 14.53. Hgb 14.8. Review of Systems All systems reviewed & are unremarkable except as noted in HPI and below PFSH All Active Problems (Updated 02/19/23 @ 18:42 by Jean-Claude Kenny MD) Anorexia (Acute) Leukocytosis (Acute) Discharge planning issues (Acute) Atrial fibrillation with rapid ventricular response (Acute) Pleural effusion (Acute) Lung mass (Acute) IPF (idiopathic pulmonary fibrosis) (Acute) History of angioplasty (Acute) Respiratory crackles (Acute) Peripheral vascular disease (Chronic) Overweight (Acute) Mixed hyperlipidemia (Acute) Hypertensive disorder (Chronic) Hyperplasia of prostate (Acute) Atherosclerosis of coronary artery without angina pectoris (Acute) Surgical History History of colonoscopy Hx of appendectomy Family History Brother Bipolar disorder Sister Bipolar disorder Coronary artery disease involving coronary bypass graft Father Myocardial infarction Social History Smoking/Tobacco Use Status: Former Tobacco Use tobacco type: cigarettes Quit Date: 08/13/80 Tobacco: How many years used: 25 Smoking risk assessment performed?: Yes Alcohol Intake: never Drug use: Never Substance use type: does not use Housing: house Do you feel safe at home: Yes Do you feel safe in your relationship?: Yes Meds Allergies and Home Medications Allergies Allergy/AdvReac Type Severity Reaction Status Date / Time No Known Allergies Allergy Verified 02/19/23 09:09 Home Medications Medication Instructions Recorded Confirmed Type aspirin 81 mg tablet,delayed 162 mg PO DAILY 12/29/22 02/19/23 History release (Sandrine Low Dose Aspirin) atorvastatin 40 mg tablet 40 mg PO DAILY 12/29/22 02/19/23 History enalapril maleate 5 mg tablet 5 mg PO DAILY 12/29/22 02/19/23 History metoprolol tartrate 50 mg tablet 50 mg PO BID 12/29/22 02/19/23 History nitroglycerin 0.3 mg sublingual 0.3 mg sublingual Q5M PRN 12/29/22 02/19/23 History tablet acetaminophen 500 mg tablet 1,000 mg PO Q6H PRN 02/19/23 02/19/23 History bisacodyl 10 mg rectal suppository 10 mg SC DAILY 02/19/23 02/19/23 History buprenorphine 20 mcg/hour weekly 1 patch transdermal Q7D 02/19/23 02/19/23 History transdermal patch dronabinol 5 mg capsule 5 mg PO BID 02/19/23 02/19/23 History gabapentin 300 mg capsule 300 mg PO TID 02/19/23 02/19/23 History hydromorphone 2 mg tablet 6 mg PO Q6H PRN Pain 02/19/23 02/19/23 History (Dilaudid) polyethylene glycol 17 pwd miscellaneous DAILY 02/19/23 02/19/23 History prochlorperazine maleate 5 mg 2.5 mg PO BID 02/19/23 02/19/23 History tablet (Compazine) apixaban 5 mg tablet (Eliquis) 5 mg PO BID #60 tabs 02/20/23 Rx Exam Narrative Exam Narrative: Pleasant male that appears underweight. Interactive and conversant. and daughter present. Const General: no acute distress and well groomed Orientation: alert and oriented x3 Other: Smiling and interactive, starting to pink up HENMT Head: normocephalic Ears: hearing grossly normal bilaterally Mouth: moist mucous membranes Eyes General: appearance normal, both eyes and all related structures Sclera: sclerae normal Neck Neck: full ROM, supple and no JVD Resp Effort & Inspection: normal respiratory effort Auscultation: rales (bibasilar rales evident) Cardio Rate: tachycardic Rhythm: abnormal rhythm (Irregularly irregular) Heart Sounds: no murmurs and no rubs GI Inspection: non-distended Palpation: soft and nontender Auscultation: normal bowel sounds Skin General skin exam: no rashes or lesions noted Neuro General: no focal motor deficits Speech: speech normal Motor: other (JOHANSEN) Extrem General: no pedal edema and no calf tenderness Psych Mental Status: mental status grossly normal Speech and Movement: speech and movement normal Affect: normal affect Results Labs 02/20/23 06:10 02/20/23 06:10 Labs: Laboratory Results - last 24 hr 02/19/23 02/19/23 02/19/23 08:50 08:50 08:50 WBC 14.53 H RBC 4.87 Hgb 14.8 Hct 45.3 MCV 93 MCH 30.4 MCHC 32.7 RDW 12.7 Plt Count 234 MPV 9.9 Immature Gran % 0.8 Neutrophils % 82.0 Lymphocytes % 4.8 Monocytes % 8.9 Eosinophils % 3.0 Basophils % 0.5 Nucleated RBC % 0.0 Absolute Neutrophils 11.91 H Absolute Lymphocytes 0.70 L Absolute Monocytes 1.29 H Absolute Eosinophils 0.44 Absolute Basophils 0.07 PT 14.0 H INR 1.4 H APTT 28.7 Sodium 138 Potassium 3.5 Chloride 97 L Carbon Dioxide 29.1 Anion Gap 11.9 H BUN 25 H Creatinine 1.0 Est GFR (CKD-EPI 2020) 75.61 Glucose 139 H Calcium 9.6 Magnesium 2.0 Total Bilirubin 0.8 AST 22 ALT 19 Alkaline Phosphatase 111 Troponin I < 50 Total Protein 7.5 Albumin 2.6 L TSH Free T4 02/19/23 02/19/23 02/19/23 08:50 09:05 12:05 WBC RBC Hgb Hct MCV MCH MCHC RDW Plt Count MPV Immature Gran % Neutrophils % Lymphocytes % Monocytes % Eosinophils % Basophils % Nucleated RBC % Absolute Neutrophils Absolute Lymphocytes Absolute Monocytes Absolute Eosinophils Absolute Basophils PT INR APTT Sodium Cancelled Potassium Cancelled Chloride Cancelled Carbon Dioxide Cancelled Anion Gap Cancelled BUN Cancelled Creatinine Cancelled Est GFR (CKD-EPI 2020) Cancelled Glucose Cancelled Calcium Cancelled Magnesium Total Bilirubin Cancelled AST Cancelled ALT Cancelled Alkaline Phosphatase Cancelled Troponin I Cancelled Cancelled Total Protein Cancelled Albumin Cancelled TSH 1.93 Free T4 1.33 02/19/23 12:55 WBC RBC Hgb Hct MCV MCH MCHC RDW Plt Count MPV Immature Gran % Neutrophils % Lymphocytes % Monocytes % Eosinophils % Basophils % Nucleated RBC % Absolute Neutrophils Absolute Lymphocytes Absolute Monocytes Absolute Eosinophils Absolute Basophils PT INR APTT Sodium Potassium Chloride Carbon Dioxide Anion Gap BUN Creatinine Est GFR (CKD-EPI 2020) Glucose Calcium Magnesium Total Bilirubin AST ALT Alkaline Phosphatase Troponin I < 50 Total Protein Albumin TSH Free T4 Last Vital Signs Temp 36.9 C 07/10/23 15:34 Pulse 105 H 02/19/23 15:34 Resp 17 02/19/23 15:34 BP 99/59 L 02/19/23 15:34 Pulse Ox 93 02/19/23 15:34 Time Spent Time spent with Patient: 40-54 minutes Time was spent: preparing to see the patient(eg.review tests), obtaining and/or reviewing separately otained hiistory, ordering medications,tests, procedures, referring, communicating with other health animal care giver, indepentently interpreting results and counseling the patient
[2023-02-19] MEDS: Prochlorperazine 5 MG TAB 2.5 MG PO (20:15)
[2023-02-19] MEDS: Gabapentin 300 MG CAP PO (20:15)
[2023-02-19] MEDS: Acetaminophen 325 MG TAB PO (22:24)
[2023-02-19] MEDS: Metoprolol 50 MG TAB 100 MG PO (22:26)
[2023-02-20] VITALS: PULSE 90
--- NOTE | 2023-02-20 | DI.US_ITS ---
APPROVED REPORT EXAM: Comprehensive 2D, Doppler, and color-flow Echocardiogram Patient Location: In-Patient Room/Bed: [facility] Cytometry Technologist: Nathen Maravilla RDMS, RVT Indications: afib with RVR, new onset Other Information Study Quality: Adequate. Technically limited study due to inability to position patient. Conclusion Normal left ventricular wall thickness and chamber size. Left ventricular systolic function is borde rline. EF is 50 to 55%. Normal right ventricular size and systolic function Left atrium is borderline dilated. Right atrial size is normal Aortic valve is trileaflet and sclerotic with trace to mild regurgitation Normal mitral valve with mild regurgitation Mild tricuspid valve with mild to moderate regurgitation. Estimated right ventricular systolic press ure is 26 mmHg Mildly dilated aortic root Wall motion Left Ventricle The left ventricle is normal size. Left ventricular systolic function is borderline There is normal l eft ventricular wall thickness. The basal inferoseptal wall is hypokinetic. The mid inferoseptal wall is hypokinetic. There is no ventricular septal defect visualized. LVEF is 50-55%. Right Ventricle Right ventricle is grossly normal in size. Right ventricular systolic function is grossly normal. The RVSP is 25.7 mmHg. Atria Left atrium is borderline dilated. The right atrium size is normal. The interatrial septum is intact with no evidence for an atrial septal defect. Aortic Valve The Aortic valve is sclerotic. Aortic valve is trileaflet. There is no aortic valvular stenosis. Trac e to mild aortic regurgitation. Mitral Valve The mitral valve is normal in structure. No evidence of mitral valve stenosis. Mild mitral regurgitat ion. Tricuspid Valve The tricuspid valve is normal in structure. There is no tricuspid valve stenosis. Mild to moderate tr icuspid regurgitation. Pulmonic Valve The pulmonary valve is normal in structure. There is no pulmonic valvular stenosis. Trace pulmonic re gurgitation. Great Vessels Aortic root is borderline dilated. Ascending aorta is not well visualized. Aortic arch is normal in c aliber. IVC is normal in size and collapses >50% with inspiration. Pericardium No significant pericardial effusion 2D Dimensions IVSD d PLAX 0.74 cm M: 0.6-1.2 LV Vol A2C d MOD 48.2 mL LVPW d PLAX 0.79 cm M: 0.6 - 1.2 LV Vol A4C d MOD 76.7 mL LVID d PLAX 4.18 cm M: 4.2 - 5.8 LA vol/ BSA A4C s A-L 11.7 mL/m2 LVDs 3.00 cm M: 2.5 - 4.0 LA Area A4C s MOD 12.07 cm2 Ao Root d 3.79 cm M: 3.1 - 3.7 LV EF A4C MOD 40.1 % LV EF Teichholz 53.5 % LV EF A2C MOD 41.3 % LVEF (Roca's) 40.23 % M: 52 - 72 LV EF Biplane MOD 40.2 % LV Volume 48.21 mL M: 62 - 150 SV 25.45 mL LV Volume Index 25.24 mL/m2 M: 34 - 74 SV Index 13.34 mL/m2 LV Vol Biplane MOD 63.3 mL FS 27.25 % M-Mode TAPSE 2.15 cm (M/F) >1.7 LV Diastology MV E' medial 0.186 (>0.07 m/s) MV E Vmax 0.88 (0.4-1.3 m/s) LV E/e MED 4.70 (<14) MV E' lateral 0.217 (>0.1 m/s) LV E/e LAT 4.05 (<14) MV E/E' medial 4.74 MV E/E' lateral 4.06 Aortic Valve LVOT Area 3.51 cm2 AoV Area Vmax 2.73 cm2 LVOT Vmax 0.78 m/s AoV Area/ BSA (Vmax) 1.43 cm2/m2 LVOT Mean Rafael. 0.53 m/s LACY Mean Rafael. 2.76 cm2 LVOT Peak Grad 2.4 mmHg LACY Mean Rafael. Index 1.44 cm2/m2 LVOT Mean Grad 1.3 mmHg AR DT 2191 msec LVOT VTI 0.126 m AR PHT 635 msec LVOT Diam s 2.10 cm AoV Vmax 1.00 m/s Velocity Ratio 0.78 AoV Mean Rafael. 0.68 m/s AoV Peak Grad 4.0 mmHg LVOT SV 44.11 mL AoV Mean Grad 2.1 mmHg AoV VTI 0.141 m AoV Area VTI 3.13 cm2 AoV Area/ BSA (VTI) 1.64 cm/m2 Mitral Valve MV DT 189 (160-240 msec) MV PHT 55 msec MV Area PHT 4.00 cm2 MV VTI 0.159 m MV Area VTI 2.77 (4.0-6.0 cm2) Pulmonary Valve PV Vmax 0.90 (0.5-1.5 m/s) RVOT Peak Gr. 2.49 mmHg PV Peak Grad 3.3 mmHg RVOT Mean Gr. 1.10 mmHg PV Mean Grad 1.8 mmHg RVOT VTI 0.104 m PV VTI 0.151 m RVOT Vmax 0.79 m/s Tricuspid Valve TR Peak Grad 22.7 mmHg TR Vmax 2.38 m/s RA Pressure 3.00 mmHg RVSP (TR) 25.7 mmHg
[2023-02-20 00:35] VITALS: BP 90/58; PULSE 76; RESP 18; TEMP 36.3; O2SAT 93
[2023-02-20] MEDS: Ketorolac 30 MG/ML VIAL IVP (01:12)
[2023-02-20 03:45] VITALS: BP 94/52; PULSE 80; RESP 18; TEMP 36.6; O2SAT 94
[2023-02-20 07:00] VITALS: PULSE 82
[2023-02-20 07:15] VITALS: BP 101/65; PULSE 80; RESP 16; TEMP 36.2; O2SAT 95
[2023-02-20 07:16] LABS: Absolute Basophil Count 0.11 10^3/uL (0.0-0.2); Absolute Eosinophil Count 0.73 10^3/uL (0.0-0.7); Absolute Lymphocyte Count 0.95 10^3/uL (1.2-3.4); Absolute Monocyte Count 1.01 10^3/uL (0.1-0.8); Absolute Neutrophil Count 8.11 10^3/uL (1.2-6.7); Eosinophils % 6.6; HCT 39.4 % (40.0-50.0); HGB 13.1 g/dL (13.5-17.5); Immature Grans % 0.9; Lymphocytes % 8.6; MCH 31.2 pg (27.0-33.0); MCHC 33.2 % (32.0-36.0); MCV 94 fL (80-95); MPV 10.1 fL (8.0-11.0); Monocytes % 9.2; Neutrophils % 73.7; Platelet Count 204 10^3/uL (130-400); RDW-SD 43.8 fL; WBC 11.01 10^3/uL (4.4-10.8)
[2023-02-20 07:27] LABS: Anion Gap 5.5 mmol/L (3-11); BUN 26 mg/dL (7-18); CO2 31.5 mmol/L (21.0-32.0); Chloride 103 mmol/L (98-107); Estimated GFR 75.61 (mL/min/1.73m2); Glucose 83 mg/dL (74-106); Potassium 4.7 mmol/L (3.5-5.1); Sodium 140 mmol/L (136-145)
[2023-02-20] MEDS: Polyethylene Glycol 3350 17 GM PACKET PO (08:11)
[2023-02-20] MEDS: Prochlorperazine 5 MG TAB 2.5 MG PO (08:11)
[2023-02-20] MEDS: Gabapentin 300 MG CAP PO (08:12)
[2023-02-20] MEDS: Atorvastatin 40 MG TAB PO (08:12)
[2023-02-20] MEDS: Enalapril 5 MG TAB PO (08:13)
[2023-02-20] MEDS: Aspirin E.C. 81 MG TABEC 162 MG PO (08:20)
--- NOTE | 2023-02-20 08:37 | PDOC.CMIN ---
Date of service: 02/20/23 Time of Service: 08:37 Care Management Initial Assmt Initial Assessment REASON FOR HOSPITALIZATION:: atrial fibrillation with rapid ventricular response PREVIOUS FUNCTIONAL STATUS/SOCIAL/FAMILY SUPPORTS:: Doroteo lives in [place], [place] with his Zahra. ADVANCE DIRECTIVES:: none on file INSURANCE COVERAGE / FINANCIAL ISSUES:: [facility] Medicare Replacement PRIMARY CARE PHYSICIAN:: Fazal Ponce POTENTIAL DISCHARGE NEEDS:: follow up with PCP, cardiology and plan of care PATIENT/FAMILY EDUCATION NEEDS:: Review discharge instructions, medications, activity, limitations, follow up plan, discuss Ask Me Three TRANSPORTATION:: via private vehicle with family PLAN:: Doroteo will likely be discharged home with no new services. He will follow up with his community providers and plan of care and transport with family. CM will continue to support Doroteo and assess for ongoing discharge concerns. PFSH All Active Problems (Updated 02/19/23 @ 18:42 by Jean-Claude Kenny MD) Anorexia (Acute) Leukocytosis (Acute) Discharge planning issues (Acute) Atrial fibrillation with rapid ventricular response (Acute) Pleural effusion (Acute) Lung mass (Acute) IPF (idiopathic pulmonary fibrosis) (Acute) History of angioplasty (Acute) Respiratory crackles (Acute) Peripheral vascular disease (Chronic) Overweight (Acute) Mixed hyperlipidemia (Acute) Hypertensive disorder (Chronic) Hyperplasia of prostate (Acute) Atherosclerosis of coronary artery without angina pectoris (Acute) Surgical History History of colonoscopy Hx of appendectomy Family History Brother Bipolar disorder Sister Bipolar disorder Coronary artery disease involving coronary bypass graft Father Myocardial infarction Social History Smoking/Tobacco Use Status: Former Tobacco Use tobacco type: cigarettes Quit Date: 08/13/80 Tobacco: How many years used: 25 Smoking risk assessment performed?: Yes Alcohol Intake: never Drug use: Never Substance use type: does not use Housing: house Do you feel safe at home: Yes Do you feel safe in your relationship?: Yes
--- NOTE | 2023-02-20 08:44 | CCONE_ITS ---
Date of service: 02/20/23 Time of Service: 08:44 Assessment and Plan Assessment and plan (1) Atrial fibrillation with rapid ventricular response: Status: Acute Assessment and plan: Heart rate is controlled now. Echocardiogram is pending. As discussed with Dr. Kenny patient to be anticoagulated unless contraindicated. His [id number] score is 4. 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 He has had radiation therapy and was to initiate chemotherapy yesterday but was weak and near syncopal and ended up in the emergency room. He was found to have atrial fibrillation with an uncontrolled rate. This was a new diagnosis. He has been treated with a rate control strategy and now his heart rates are in the 80s. He is to have echocardiogram this morning. Patient has history of coronary artery disease ( prior stents, details not known), hypertension and peripheral arterial disease. Review of Systems Narrative: Patient was not interviewed PFS All Active Problems (Updated 02/19/23 @ 18:42 by Jean-Claude Kenny MD) Anorexia (Acute) Leukocytosis (Acute) Discharge planning issues (Acute) Atrial fibrillation with rapid ventricular response (Acute) Pleural effusion (Acute) Lung mass (Acute) IPF (idiopathic pulmonary fibrosis) (Acute) History of angioplasty (Acute) Respiratory crackles (Acute) Peripheral vascular disease (Chronic) Overweight (Acute) Mixed hyperlipidemia (Acute) Hypertensive disorder (Chronic) Hyperplasia of prostate (Acute) Atherosclerosis of coronary artery without angina pectoris (Acute) Surgical History History of colonoscopy Hx of appendectomy Family History Brother Bipolar disorder Sister Bipolar disorder Coronary artery disease involving coronary bypass graft Father Myocardial infarction Social History Smoking/Tobacco Use Status: Former Tobacco Use tobacco type: cigarettes Quit Date: 08/13/80 Tobacco: How many years used: 25 Smoking risk assessment performed?: Yes Alcohol Intake: never Drug use: Never Substance use type: does not use Housing: house Do you feel safe at home: Yes Do you feel safe in your relationship?: Yes Exam Narrative Exam Narrative: Cachectic frail elderly no distress Results Last Vital Signs Temp 36.2 C L 02/20/23 07:15 Pulse 80 02/20/23 07:15 Resp 16 02/20/23 07:15 BP 101/65 02/20/23 07:15 Pulse Ox 95 02/20/23 07:15 Labs 02/20/23 06:10 02/20/23 06:10 Labs: Laboratory Results - last 24 hr 02/19/23 02/19/23 02/19/23 08:50 08:50 08:50 WBC 14.53 H RBC 4.87 Hgb 14.8 Hct 45.3 MCV 93 MCH 30.4 MCHC 32.7 RDW 12.7 Plt Count 234 MPV 9.9 Immature Gran % 0.8 Neutrophils % 82.0 Lymphocytes % 4.8 Monocytes % 8.9 Eosinophils % 3.0 Basophils % 0.5 Nucleated RBC % 0.0 Absolute Neutrophils 11.91 H Absolute Lymphocytes 0.70 L Absolute Monocytes 1.29 H Absolute Eosinophils 0.44 Absolute Basophils 0.07 PT 14.0 H INR 1.4 H APTT 28.7 Sodium 138 Potassium 3.5 Chloride 97 L Carbon Dioxide 29.1 Anion Gap 11.9 H BUN 25 H Creatinine 1.0 Est GFR (CKD-EPI 2020) 75.61 Glucose 139 H Calcium 9.6 Magnesium 2.0 Total Bilirubin 0.8 AST 22 ALT 19 Alkaline Phosphatase 111 Troponin I < 50 Total Protein 7.5 Albumin 2.6 L TSH Free T4 02/19/23 02/19/23 02/19/23 08:50 09:05 12:05 WBC RBC Hgb Hct MCV MCH MCHC RDW Plt Count MPV Immature Gran % Neutrophils % Lymphocytes % Monocytes % Eosinophils % Basophils % Nucleated RBC % Absolute Neutrophils Absolute Lymphocytes Absolute Monocytes Absolute Eosinophils Absolute Basophils PT INR APTT Sodium Cancelled Potassium Cancelled Chloride Cancelled Carbon Dioxide Cancelled Anion Gap Cancelled BUN Cancelled Creatinine Cancelled Est GFR (CKD-EPI 2020) Cancelled Glucose Cancelled Calcium Cancelled Magnesium Total Bilirubin Cancelled AST Cancelled ALT Cancelled Alkaline Phosphatase Cancelled Troponin I Cancelled Cancelled Total Protein Cancelled Albumin Cancelled TSH 1.93 Free T4 1.33 02/19/23 02/20/23 02/20/23 12:55 06:10 06:10 WBC 11.01 H RBC 4.20 L Hgb 13.1 L Hct 39.4 L MCV 94 MCH 31.2 MCHC 33.2 RDW 13.0 Plt Count 204 MPV 10.1 Immature Gran % 0.9 Neutrophils % 73.7 Lymphocytes % 8.6 Monocytes % 9.2 Eosinophils % 6.6 Basophils % 1.0 Nucleated RBC % 0.0 Absolute Neutrophils 8.11 H Absolute Lymphocytes 0.95 L Absolute Monocytes 1.01 H Absolute Eosinophils 0.73 H Absolute Basophils 0.11 PT INR APTT Sodium 140 Potassium 4.7 D Chloride 103 Carbon Dioxide 31.5 Anion Gap 5.5 BUN 26 H Creatinine 1.0 Est GFR (CKD-EPI 2020) 75.61 Glucose 83 Calcium 9.0 Magnesium Total Bilirubin AST ALT Alkaline Phosphatase Troponin I < 50 Total Protein Albumin TSH Free T4 EKG interpretations EKG EKG shows: atrial fibrillation LA, pacemaker, normal Myocardial infarction: inferior LA (old age indeterminate)
[2023-02-20] MEDS: HYDROmorphone 2 MG TAB 6 MG PO (09:41)
[2023-02-20] MEDS: Metoprolol 50 MG TAB PO (09:43)
[2023-02-20] MEDS: Dronabinol 2.5 MG CAP 5 MG PO (10:22)
[2023-02-20] MEDS: Apixaban 5 MG TAB PO (10:22)
--- NOTE | 2023-02-20 10:40 | DSE_ITS ---
Date of service: 02/20/23 Time of Service: 10:40 DS: Diagnosis Discharge Diagnosis (1) Atrial fibrillation with rapid ventricular response: Status: Resolved Asessment and Plan: His metoprolol was increased to 100mg in the PM. Continue 50mg in the AM. He did have a pause of 3 seconds overnight. Cardiology consulted. Anticoagulation with Eliquis 5mg BID initiated. [id number] score is 4. (2) Hypertensive disorder: Status: Chronic Asessment and Plan: Cont home antihypertensives. (3) Atherosclerosis of coronary artery without angina pectoris: Status: Acute Asessment and Plan: No anginal symptoms. Cont aspirin, atorvastatin and metoprolol. (4) Lung mass: Status: Acute Asessment and Plan: He will reschedule his first round of chemotherapy. (5) Anorexia: Status: Acute Asessment and Plan: Dronabinol 5mg BID initiated. Discharge Plan Disposition Patient Disposition: Home Condition: Improving Discharge Details Reason For Visit: Atrial fibrillation w/rapid ventricular response Admit Date/Time: 02/19/23 10:58 Admit Provider: Jean-Claude Kenny Attending Provider: Jean-Claude Kenny Primary Care Provider: Fazal Ponce [facility] Course Hospital Course: The is an 82 yo male with recently diagnosed lung cancer with metastases to vertabrae, anorexia, CAD, IPF, PAD, HLD, HTN.? He presented to the ED after experiencing a presyncopal episode while at the [facility]; there for his first round of chemotherapy.? He stated his back starting hurting and he felt like he was going to pass out.? He endorsed having experienced this before.? He then, however, became diaphoretic.? EMS called.? In the ED his was found to be in atrial fibrillation with a rapid ventricular response in the 130's. The lightheaded sensation that he presented with resolved while in the ED. No palpitations, CP, F/C. No cough/sputum/shortness of air. One liter IV NS administered. He received 2 doses of 10mg IV diltiazem with ventricular rate decreasing into the low 100's - 110's. Lytes normal.? BUN 25.? Creatinine 1.0. CXR with RLL infiltrate jeniffer appears to correspond to findng seen on outside CT scan of 5/5/23. WBC count was 14.53.? Hgb 14.8.? See diagnosis He has a PCP f/u scheduled for next week. Home Meds and New Rx's Prescriptions: New Eliquis 5 mg tablet 5 mg PO BID Qty: 60 0RF dronabinol 5 mg capsule 5 mg PO BID Qty: 60 0RF Rx Instructions: administer before lunch and evening meal/dinner Continued atorvastatin 40 mg tablet 40 mg PO DAILY aspirin [Sandrine Low Dose Aspirin] 81 mg tablet,delayed release (DR/EC) 162 mg PO DAILY enalapril maleate 5 mg tablet 5 mg PO DAILY nitroglycerin 0.3 mg tablet, sublingual 0.3 mg sublingual Q5M PRN Rx Instructions: do not exceed 3 doses per episode acetaminophen 500 mg Tablet 1,000 mg PO Q6H PRN bisacodyl 10 mg Suppository 10 mg [place] DAILY gabapentin 300 mg Capsule 300 mg PO TID polyethylene glycol Powder 17 pwd MISCELLANEOUS DAILY prochlorperazine maleate [Compazine] 5 mg Tablet 2.5 mg PO BID Rx Instructions: has only been taking it once a day Changed metoprolol tartrate 50 mg tablet See Rx Instructions .ROUTE .COMPLEX Qty: 0 0RF Rx Instructions: 50 mg orally in AM. 100 mg orally at night Discontinued dronabinol 5 mg Capsule 5 mg PO BID No Action hydromorphone 8 mg tablet 8 mg PO Q3H PRN buprenorphine 20 mcg/hour patch weekly 1 patch TRANSDERMAL Q7D Qty: 4 0RF Rx Instructions: chronic pain Discharge Instructions Instructions: A-fib (Atrial Fibrillation) (DC) Stand Alone Forms: Nursing Discharge Form Referrals: Fazal Ponce [Primary Care Provider] - 02/27/23 9:20 am Activity:: Activity as Tolerated Equipment/Supplies:: No Equipment Needed Diet:: Resume home diet Discharge Orders Discharge Orders: Discharge Order (Routine); Ordered 02/20/23 Ordered By: Jean-Claude Kenny Discharge Data Discharge Date/Time-TO BE ENTERED AT DEPARTURE: 02/20/23 13:26 DS: Summary Time Spent with Patient providing and/or coordinating discharge services: Greater than 30 minutes Status at Discharge Functional status at discharge: independent ambulation Overall status at discharge: patient is progressing back to baseline Mental Status: mental status grossly normal Speech and Movement: speech and movement normal Mood: congruent mood Affect: normal affect Exam Narrative Exam Narrative: Pleasant male that appears underweight. Interactive and conversant. Lying n bed. Const General: no acute distress and well groomed Orientation: alert and oriented x3 Other: Smiling and interactive, starting to pink up HENMT Head: normocephalic Ears: hearing grossly normal bilaterally Mouth: moist mucous membranes Eyes General: appearance normal, both eyes and all related structures Sclera: sclerae normal Neck Neck: full ROM, supple and no JVD Resp Effort & Inspection: normal respiratory effort Auscultation: rales (bibasilar rales evident) Cardio Rate: tachycardic Rhythm: abnormal rhythm (Irregularly irregular) Heart Sounds: no murmurs and no rubs GI Inspection: non-distended Palpation: soft and nontender Auscultation: normal bowel sounds Skin General skin exam: no rashes or lesions noted Neuro General: no focal motor deficits Speech: speech normal Motor: other (JOHANSEN) Extrem General: no pedal edema and no calf tenderness Psych Mental Status: mental status grossly normal Speech and Movement: speech and movement normal Mood: congruent mood Affect: normal affect DS: Data Vitals/I&O Vitals and I&O: Vital Signs Temperature 36.2 C L 02/20/23 07:15 Temperature Source Tympanic 02/20/23 07:15 Pulse 80 02/20/23 07:15 Pulse Rhythm Irregular 02/19/23 21:00 Pulse 116 H 02/19/23 11:32 Respiratory Rate 16 02/20/23 07:15 Respiratory Effort Normal, Non-Labored 02/19/23 21:00 Respiratory Depth Normal 02/19/23 21:00 Respiratory Pattern Normal 02/19/23 21:00 Blood Pressure 101/65 02/20/23 07:15 Blood Pressure Mean 66 02/19/23 11:31 Blood Pressure Position Sitting 02/19/23 08:48 Pulse Oximetry 95 02/20/23 07:15 Oxygen Delivery Method Room Air 02/20/23 07:15 Oxygen Flow Rate 0 02/20/23 07:15 Pain Level 0 02/20/23 07:15 Comment Edited HR for this timestamp. pt is on tele and was never below 105. Assumed pulse oximeter reading of HR incorrect d/t AFIB RN was notified of vitals 02/19/23 15:34 Intake & Output 02/19/23 02/19/23 02/20/23 11:59 23:59 11:59 Intake Total 1000 / 1250 250 / 1250 360 / 360 Balance 1000 / 1250 250 / 1250 360 / 360 Weight 71.9 kg Intake: IV 1000 / 1000 Oral 250 / 250 360 / 360 Other: Urine Appearance Clear Comment voided in toilet Voiding Methods Toilet Toilet Data Completed and Pending Labs on day of discharge: Labs from last 24 hours 02/20/23 02/20/23 02/19/23 06:10 06:10 12:55 WBC 11.01 H RBC 4.20 L Hgb 13.1 L Hct 39.4 L MCV 94 MCH 31.2 MCHC 33.2 RDW 13.0 Plt Count 204 MPV 10.1 Immature Gran % 0.9 Neutrophils % 73.7 Lymphocytes % 8.6 Monocytes % 9.2 Eosinophils % 6.6 Basophils % 1.0 Nucleated RBC % 0.0 Absolute Neutrophils 8.11 H Absolute Lymphocytes 0.95 L Absolute Monocytes 1.01 H Absolute Eosinophils 0.73 H Absolute Basophils 0.11 Sodium 140 Potassium 4.7 D Chloride 103 Carbon Dioxide 31.5 Anion Gap 5.5 BUN 26 H Creatinine 1.0 Est GFR (CKD-EPI 2020) 75.61 Glucose 83 Calcium 9.0 Troponin I < 50 PFSH All Active Problems (Updated 03/31/23 @ 00:01 by MILIND WILDER) Financial insecurity due to medical expenses (Acute) At risk for falling (Acute) Impaired instrumental activities of daily living (Acute) Constipation (Acute) Dry skin (Acute) Advanced care planning/counseling discussion (Acute) Former cigarette smoker (Acute) Adenocarcinoma of lung, stage 4 (Acute) Anorexia (Acute) Leukocytosis (Acute) Pleural effusion (Acute) Lung mass (Acute) IPF (idiopathic pulmonary fibrosis) (Acute) History of angioplasty (Acute) Respiratory crackles (Acute) Peripheral vascular disease (Chronic) Overweight (Acute) Mixed hyperlipidemia (Acute) Hypertensive disorder (Chronic) Hyperplasia of prostate (Acute) Atherosclerosis of coronary artery without angina pectoris (Acute) Surgical History History of colonoscopy Hx of appendectomy Family History Brother Bipolar disorder Sister Bipolar disorder Coronary artery disease involving coronary bypass graft Father Myocardial infarction Social History Smoking/Tobacco Use Status: Former Tobacco Use tobacco type: cigarettes Quit Date: 08/13/80 Tobacco: How many years used: 25 Smoking risk assessment performed?: Yes Alcohol Intake: never Drug use: Never Substance use type: does not use Housing: house Do you feel safe at home: Yes Do you feel safe in your relationship?: Yes Time Spent with Patient Time Spent with Patient: 45-69 minutes Time was spent: preparing to see the patient(eg.review tests), obtaining and/or reviewing separately otained hiistory, referring, communicating with other health wound care specialist, indepentently interpreting results, counseling the patient and care coordination
[2023-02-20 10:55] VITALS: BP 98/58; PULSE 75; TEMP 36.7; O2SAT 98
--- NOTE | 2023-02-20 18:23 | PDOC.CMDIS ---
Date of service: 02/20/23 Time of Service: 18:23 LACE Index Scoring Tool Questions: Length of Stay (in days): 1 Was the patient admitted via the E.D.?: Yes E.D. Visits: 0 Answers: Total Score: 4 Risk of Readmission: Low Risk Care Management Discharge Plan Reason for Hospitalization: Afib with rvr Discharge Plan: Doroteo will return home with no additional services, he will follow up with his PCP and plan of care as prescribed and transport via private vehicle with family. Patient/Family Education Needs: Review discharge instructions, discuss Ask Me Three.
== END 2023-02-20 13:26 | disposition home or self-care (01) | DRG 309 ==
LOC: ER 10:53 → MS 11:51
PROVIDERS: Internal Medicine Medical Oncology; Admitting Provider Family Medicine; Emergency Provider Emergency Medicine; PCP Internal Medicine; Visit Provider Family Medicine
DX: I48.91 Unspecified atrial fibrillation (principal); C34.31 Malignant neoplasm of lower lobe, right bronchus or lung; C79.51 Secondary malignant neoplasm of bone; I10 Essential (primary) hypertension; R63.0 Anorexia; I25.10 Atherosclerotic heart disease of native coronary artery without angina pectoris; Z68.22 Body mass index [BMI] 22.0-22.9, adult; Z66 Do not resuscitate; J84.112 Idiopathic pulmonary fibrosis; I73.9 Peripheral vascular disease, unspecified; E78.2 Mixed hyperlipidemia; N40.0 Benign prostatic hyperplasia without lower urinary tract symptoms; Z87.891 Personal history of nicotine dependence; Z95.5 Presence of coronary angioplasty implant and graft
CPT/HCPCS: 36415; 80048; 80053; 93005; 93306; 96361; 96374; 96375; 96376; 99223; 99285; 71045; 83735; 84439; 84443; 84484; 85025; 85610; 85730; 93010; 99222; 99239; J1170; J1885; J2405

== ENCOUNTER → 2023-02-20 07:36 | Outpatient (BNVA) | payer MEDICARE, SELFPAY | PROVIDERS: PCP Internal Medicine; Referring Provider Internal Medicine; Visit Provider Internal Medicine Cardiovascular Disease ==

== ENCOUNTER 2023-02-28 17:24 | Emergency (ER) | payer MEDICARE, SELFPAY ==
[2023-02-28 17:25] VITALS: BP 130/48; PULSE 83; RESP 20; TEMP 36.8; O2SAT 99
--- NOTE | 2023-02-28 17:30 | DI.CT_ITS ---
Exam(s) CT LUMBAR SPINE WO EXAM: CT LUMBAR SPINE WO CLINICAL HISTORY: lumbar back pain. TECHNIQUE: Imaging Protocol: Axial computed tomography images with coronal and sagittal reformatted images were created and reviewed COMPARISON: MR MR LS SPINE WO CONTRAST from 12/13/2022 MR MR LS SPINE WO CONTRAST from 01/12/2023 FINDINGS: Bones: The last intervertebral disc space is designated the L5/S1 level for the numbering purpose of this examination. There is a compression fracture deformity of L1. This was not present on the MRI examination from 01/12/2023. Given the findings on the MRI examination, a pathologic fracture is suspe cted. There is retropulsion into the central spinal canal with resultant AP diameter of 1.1 cm. Thi s compares to 1.8 cm at the T12 level. There is a very mild leftward curvature of the lumbar spine. No spondylolysis or spondylolisthesis is present. The bones are demineralized. T12-L1: No disc herniations or bulges are present. Mild narrowing of the central spinal canal. L1-2: No disc herniations or bulges are present. No significant central spinal canal stenosis is see n. There is mild bilateral neural foraminal stenosis. L2-3: No disc herniations or bulges are present. No central spinal canal or neural foraminal stenosi s. L3-4: No disc herniations or bulges are present. No significant central spinal canal stenosis is see n. There is [id number] bilateral neural foraminal stenosis. Degenerative changes of the facets are present. L4-5: No disc herniations or bulges are present. No significant central spinal canal stenosis is see n. There is moderate bilateral neural foraminal stenosis. There are degenerative changes of the facet s. L5-S1: No disc herniations or bulges are present. No central spinal canal or neural foraminal stenos is. Soft Tissues: The visualized SI joints and sacrum are will maintained. The paraspinal soft tissues a re unremarkable. There is a small right pleural effusion. IMPRESSION: 1. Acute to subacute L1 compression fracture which results in mild central spinal canal stenosis. 2. Multilevel degenerative changes as described above. 3. Small right pleural effusion. RADIATION DOSE DELIVERED: Total DLP Total DLP DATA REPOSITORY: All CT scans at this facility are submitted to the National Radiology Data Registry (NRDR) Dose Index Registry (DIR) with the [employer] ([employer]). RADIATION OPTIMIZATION: All CT scans at this facility use at least one of these dose optimization te chniques: automated exposure control; mA and/or kV adjustment per patient size (includes targeted exa ms where dose is matched to clinical indication); or iterative reconstruction.
--- NOTE | 2023-02-28 17:44 | ED.GENADUL_ITS ---
Discharge Plan Disposition Patient Disposition: Home Condition: Stable Discharge Details Clinical Impression: Lumbar back pain, At risk for dehydration due to poor fluid intake Primary Care Provider: Fazal Ponce ED Provider: Jaron Whitten [place] Meds and New Rx's Prescriptions: Continued atorvastatin 40 mg tablet 40 mg PO DAILY aspirin [Sandrine Low Dose Aspirin] 81 mg tablet,delayed release (DR/EC) 162 mg PO DAILY enalapril maleate 5 mg tablet 5 mg PO DAILY nitroglycerin 0.3 mg tablet, sublingual 0.3 mg sublingual Q5M PRN Rx Instructions: do not exceed 3 doses per episode buprenorphine 20 mcg/hour Patch Weekly 1 patch TRANSDERMAL Q7D hydromorphone [Dilaudid] 2 mg Tablet 6 mg PO Q6H PRN (Reason: Pain) Rx Instructions: 6mg-8mg q6H acetaminophen 500 mg Tablet 1,000 mg PO Q6H PRN bisacodyl 10 mg Suppository 10 mg LA DAILY gabapentin 300 mg Capsule 300 mg PO TID polyethylene glycol Powder 17 pwd MISCELLANEOUS DAILY prochlorperazine maleate [Compazine] 5 mg Tablet 2.5 mg PO BID Rx Instructions: has only been taking it once a day Eliquis 5 mg tablet 5 mg PO BID Qty: 60 0RF metoprolol tartrate 50 mg tablet See Rx Instructions .ROUTE .COMPLEX Qty: 0 0RF Rx Instructions: 50 mg orally in AM. 100 mg orally at night dronabinol 5 mg capsule 5 mg PO BID Qty: 60 0RF Rx Instructions: administer before lunch and evening meal/dinner Discharge Instructions Additional Instructions: You have a defomrity at the fist lumbar vertebrae that is likely related to your cancer. Your primary care provider and oncologist should be made aware of this if they aren't already when you follow up with them continue to take your prescribed pain medications and follow dosing instructions if you feel more ill, have severe worsening of pain or new symptoms such as chest pain return to the emergency department Medical Decision Making 82 yo male with hx of lung cancer with mets, afib, who comes in with complaints of increasing lumbar back pain with no falls or trauma and also has no appetite and feels generally weak. Denies fevers, chills, chest pain, dyspnea, abdominal pain. He arrives stable and is caox4 speaking clearly. He is moving all his extremities well, has no saddle anesthesia. he has no thoracic back tenderness, has midline lumbar spine over l2-l5, no cva tenderness, no visible or palpable deformities. Given his complaints of not eating or drinking due to no appetite will evaluate for possible electrolyte disorder, treat with iv fluids and analgesics and obtain ct lumbar spine to evaluate for mets vs compression fracture. He has no findings on history or exam to suggest cauda equina or spinal epidural abscess. labs show no significant abnormalities, ct shows acute/subacute l1 deformity, pt states he and his oncologist are already aware of this. He was sleeping on ressessment and easily awakens to voice, states he feels much better and feels comfortable with d/c. he will f/u with his oncologist and pcp, return precautions given Differential Diagnosis Differential Diagnosis: muscle spasm, musculoskeletal back pain, metastases Medical Records Medical records reviewed: Yes I reviewed the patient's medical records. Imaging Data Radiologic Study: Attestation: I personally reviewed and interpreted this imaging study as follows: Imaging: CT Scan Radiologist's impression: COMPARISON: MR LS SPINE WO CONTRAST 01/12/2023 15:47 FINDINGS: Bones/joints: The bones are demineralized. 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 This fracture appears acute to subacute most likely. Transitional lumbosacral anatomy, normal variant. Moderate to severe distal lumbar spondylosis with multilevel neural foraminal stenosis most pronounced at L4-L5 and L5-S1. Tiny calcification in the spinal canal on the left at the level of T12, challenging to characterize on CT. Disease of the probably benign however workup with pre and post-contrast MRI may be indicated given additional findings. Pleural spaces: Right pleural fluid partially imaged, difficult to quantify. Soft tissues: No suspicious lesions. IMPRESSION: 1. Acute to subacute, moderate in severity biconcave deformity of L1 with mild retropulsion, causing probably mild central canal stenosis at this level. This lesion may be pathologic given the history. 2. Additional findings as described. Lab Data Lab results reviewed: Yes I reviewed the patient's lab results. HPI General Mode of arrival: wheelchair . Date/Time Provider Initiated Documentation: 02/28/23 17:28 . Limitations to Documentation: no limitations . Information obtained by: patient . History of Present Illness 82 year old M presents to the emergency department with the chief complaint of lumbar back pain, described as moderate, Quality is described as aching, Patient started experiencing this month(s) (1) and it has been constant. No reli eving factors improve symptom(s), No exacerbating factors reported . Patient notes other (no appetite, general weakness); denies chest pain, fever/chills and nausea/vomiting. Related Data Home Medications Medication Instructions Recorded Confirmed aspirin 81 mg tablet,delayed 162 mg PO DAILY 12/29/22 02/28/23 release (Sandrine Low Dose Aspirin) atorvastatin 40 mg tablet 40 mg PO DAILY 12/29/22 02/28/23 enalapril maleate 5 mg tablet 5 mg PO DAILY 12/29/22 02/28/23 nitroglycerin 0.3 mg sublingual 0.3 mg sublingual Q5M PRN 12/29/22 02/19/23 tablet acetaminophen 500 mg tablet 1,000 mg PO Q6H PRN 02/19/23 02/28/23 bisacodyl 10 mg rectal suppository 10 mg LA DAILY 02/19/23 02/28/23 buprenorphine 20 mcg/hour weekly 1 patch transdermal Q7D 02/19/23 02/28/23 transdermal patch gabapentin 300 mg capsule 300 mg PO TID 02/19/23 02/28/23 hydromorphone 2 mg tablet 6 mg PO Q6H PRN Pain 02/19/23 02/28/23 (Dilaudid) polyethylene glycol 17 pwd miscellaneous DAILY 02/19/23 02/19/23 prochlorperazine maleate 5 mg 2.5 mg PO BID 02/19/23 02/28/23 tablet (Compazine) apixaban 5 mg tablet (Eliquis) 5 mg PO BID #60 tabs 02/20/23 02/28/23 dronabinol 5 mg capsule 5 mg PO BID #60 caps 02/20/23 metoprolol tartrate 50 mg tablet See Rx Instructions .Route 02/20/23 02/28/23 .COMPLEX #0 tabs Previous Rx's Medication Instructions Recorded apixaban 5 mg tablet (Eliquis) 5 mg PO BID #60 tabs 02/20/23 dronabinol 5 mg capsule 5 mg PO BID #60 caps 02/20/23 metoprolol tartrate 50 mg tablet See Rx Instructions .Route 02/20/23 .COMPLEX #0 tabs Allergies Allergy/AdvReac Type Severity Reaction Status Date / Time No Known Allergies Allergy Verified 02/28/23 17:29 General Stated Complaint: GenMedical KAYLA: 3 Review of Systems All systems reviewed & are unremarkable except as noted in HPI and below Constitutional Constitutional: Denies chills, Denies fever(s) and Denies weakness Cardiovascular Cardiovascular: Denies chest pain and Denies dyspnea Respiratory Respiratory: Denies cough and Denies dyspnea Gastrointestinal Gastrointestinal: Denies abdominal pain, Denies nausea and Denies vomiting Genitourinary Genitourinary: Denies dysuria Musculoskeletal Musculoskeletal: Denies joint swelling Integumentary/Breasts Skin/Breast: Denies rash Neurologic Neurologic: Denies weakness PFSH All Active Problems (Updated 02/28/23 @ 19:28 by Jaron Whitten MD) Lumbar back pain (Acute) At risk for dehydration due to poor fluid intake (Acute) Anorexia (Acute) Leukocytosis (Acute) Pleural effusion (Acute) Lung mass (Acute) IPF (idiopathic pulmonary fibrosis) (Acute) History of angioplasty (Acute) Respiratory crackles (Acute) Peripheral vascular disease (Chronic) Overweight (Acute) Mixed hyperlipidemia (Acute) Hypertensive disorder (Chronic) Hyperplasia of prostate (Acute) Atherosclerosis of coronary artery without angina pectoris (Acute) Surgical History History of colonoscopy Hx of appendectomy Family History Brother Bipolar disorder Sister Bipolar disorder Coronary artery disease involving coronary bypass graft Father Myocardial infarction Social History Smoking/Tobacco Use Status: Former Tobacco Use tobacco type: cigarettes Quit Date: 08/13/80 Tobacco: How many years used: 25 Smoking risk assessment performed?: Yes Alcohol Intake: never Drug use: Never Substance use type: does not use Housing: house Do you feel safe at home: Yes Do you feel safe in your relationship?: Yes Exam Const General: no acute distress Orientation: alert HENMT Head: normal to inspection Ears: external ears normal General nose exam: external nose normal Mouth: moist mucous membranes Eyes General: appearance normal, both eyes and all related structures Neck Neck: normal visual inspection Resp Effort & Inspection: normal respiratory effort and able to speak in complete sentences Auscultation: clear to auscultation bilaterally Cardio Jugular venous pressure: no JVD Rate: regular rate Heart Sounds: no murmurs GI Palpation: soft and nontender Back/Spine/Pelvis Back: no CVA tenderness Skin General skin exam: no rashes or lesions noted Neuro General: patient alert and patient oriented x3 Extrem General: normal to inspection Psych Mental Status: mental status grossly normal Course Vital Signs Vital signs: Vital Signs Temperature 36.8 C 02/28/23 17:25 Pulse 83 02/28/23 17:25 Respiratory Rate 20 02/28/23 17:25 Blood Pressure 130/48 L 02/28/23 17:25 Pulse Oximetry 99 02/28/23 17:25 Temperature 36.8 C 02/28/23 17:25 Temperature Source Skin 02/28/23 17:25 Pulse 83 02/28/23 17:25 Respiratory Rate 20 02/28/23 17:25 Respiratory Effort Normal, Non-Labored 02/28/23 17:29 Blood Pressure 130/48 L 02/28/23 17:25 Blood Pressure Position Sitting 02/28/23 17:25 Pulse Oximetry 99 02/28/23 17:25 Oxygen Delivery Method Room Air 02/28/23 17:25 Oxygen Flow Rate 0 02/28/23 17:25 Pain Level 6 02/28/23 17:25
[2023-02-28 17:55] LABS: Abs Immature Grans 0.13 10^3/uL (0.0-0.06); Absolute Eosinophil Count 1.58 10^3/uL (0.0-0.7); Absolute Monocyte Count 0.97 10^3/uL (0.1-0.8); Absolute Neutrophil Count 9.21 10^3/uL (1.2-6.7); Basophils % 0.8; Eosinophils % 12.1; HCT 44.9 % (40.0-50.0); HGB 14.8 g/dL (13.5-17.5); Lymphocytes % 8.3; MCH 30.8 pg (27.0-33.0); MCV 94 fL (80-95); MPV 9.5 fL (8.0-11.0); Monocytes % 7.4; Neutrophils % 70.4; Platelet Count 298 10^3/uL (130-400); RDW 13.2 % (11.8-14.1); RDW-SD 45.1 fL; WBC 13.08 10^3/uL (4.4-10.8)
[2023-02-28 17:56] LABS: Absolute Lymphocyte Count 1.09 10^3/uL (1.2-3.4)
[2023-02-28] MEDS: fentaNYL 100 MCG/2 ML VIAL IVP (18:02)
[2023-02-28] MEDS: Lidocaine 5% Patch 1 PATCH TP (18:03)
[2023-02-28] MEDS: Normal Saline 1,000 ML 1000 ML IV (18:03)
[2023-02-28] MEDS: Ketorolac 15 MG/ML VIAL IVP (18:03)
[2023-02-28 18:05] LABS: INR 1.6 (0.9-1.1); PTT Activated 30.9 sec (21.5-31.9); Prothrombin Time 16.3 sec (9.3-11.0)
[2023-02-28 18:15] LABS: ALT 14 U/L (16-63); AST 23 U/L (15-37); Albumin 2.2 g/dL (3.4-5.0); Alkaline Phosphatase 111 U/L (46-116); Anion Gap 7.7 mmol/L (3-11); BUN 19 mg/dL (7-18); Bilirubin, Total 0.5 mg/dL (0.2-1.0); CO2 30.3 mmol/L (21.0-32.0); CREATININE 0.9 mg/dL (0.70-1.30); Calcium 8.8 mg/dL (8.5-10.1); Chloride 104 mmol/L (98-107); Glucose 122 mg/dL (74-106); Magnesium 1.9 mg/dL (1.8-2.4); Potassium 3.6 mmol/L (3.5-5.1); Sodium 142 mmol/L (136-145); TSH (W/Ref FT4) 3.18 uIU/mL (0.36-3.74); Total Protein 7.4 g/dL (6.4-8.2)
--- NOTE | 2023-02-28 18:22 | NUR.NOTE ---
This RN applied SPO2 monitoring to patient, and noticed their sat was 92-93% on RA. Applied 2L O2 via NC, pt saturation came up to 97%. aware.
[2023-02-28 18:30] VITALS: RESP 17
--- NOTE | 2023-02-28 19:21 | DI.VRAD_ITS ---
PROCEDURE INFORMATION: Exam: CT Lumbar Spine Without Contrast Exam date and time: 02/28/2023 18:34 Age: 82 years old Clinical indication: Low back pain; Patient HX: H/o cancer; Additional info: Lumbar back pain TECHNIQUE: Imaging protocol: Computed tomography of the lumbar spine without contrast. Radiation optimization: All CT scans at this facility use at least one of these dose optimization techniques: automated exposure control; mA and/or kV adjustment per patient size (includes targeted exams where dose is matched to clinical indication); or iterative reconstruction. COMPARISON: MR LS SPINE WO CONTRAST 01/12/2023 15:47 FINDINGS: Bones/joints: The bones are demineralized. 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 This fracture appears acute to subacute most likely. Transitional lumbosacral anatomy, normal variant. Moderate to severe distal lumbar spondylosis with multilevel neural foraminal stenosis most pronounced at L4-L5 and L5-S1. Tiny calcification in the spinal canal on the left at the level of T12, challenging to characterize on CT. Disease of the probably benign however workup with pre and post-contrast MRI may be indicated given additional findings. Pleural spaces: Right pleural fluid partially imaged, difficult to quantify. Soft tissues: No suspicious lesions. IMPRESSION: 1. Acute to subacute, moderate in severity biconcave deformity of L1 with mild retropulsion, causing probably mild central canal stenosis at this level. This lesion may be pathologic given the history. 2. Additional findings as described. Dictated and Authenticated by: Joellen Sanchez MD. Ordering:DICK Salmeron MD
[2023-02-28 19:45] VITALS: PULSE 80; RESP 17; O2SAT 94
== END 2023-02-28 19:47 | disposition home or self-care (01) ==
PROVIDERS: Emergency Provider Emergency Medicine; PCP Internal Medicine
DX: M48.56XA Collapsed vertebra, not elsewhere classified, lumbar region, initial encounter for fracture (principal); M48.061 Spinal stenosis, lumbar region without neurogenic claudication; M47.816 Spondylosis without myelopathy or radiculopathy, lumbar region; J90 Pleural effusion, not elsewhere classified; I48.91 Unspecified atrial fibrillation; Z79.82 Long term (current) use of aspirin; Z79.01 Long term (current) use of anticoagulants; Z85.118 Personal history of other malignant neoplasm of bronchus and lung; Z87.891 Personal history of nicotine dependence; Z79.899 Other long term (current) drug therapy
CPT/HCPCS: 80053; 96361; 96374; 96375; 99284; 72131; 81003; 83735; 84443; 85025; 85610; 85730; J1885; J3010

== ENCOUNTER 2023-03-05 04:42 | Outpatient (CLI) | payer MEDICARE, SELFPAY ==
[2023-03-05 10:56] LABS: Abs Immature Grans 0.08 10^3/uL (0.0-0.06); Absolute Basophil Count 0.12 10^3/uL (0.0-0.2); Eosinophils % 8.6; HCT 42.7 % (40.0-50.0); Immature Grans % 0.6; Lymphocytes % 9.7; MCH 30.8 pg (27.0-33.0); MCHC 32.8 % (32.0-36.0); MCV 94 fL (80-95); MPV 9.6 fL (8.0-11.0); Monocytes % 7.8; Neutrophils % 72.3; Platelet Count 304 10^3/uL (130-400); RBC 4.55 10^6/uL (4.36-5.78); RDW 13.2 % (11.8-14.1); RDW-SD 45.2 fL; WBC 12.37 10^3/uL (4.4-10.8)
[2023-03-05 10:57] LABS: Absolute Eosinophil Count 1.06 10^3/uL (0.0-0.7); Absolute Monocyte Count 0.96 10^3/uL (0.1-0.8); Absolute Neutrophil Count 8.94 10^3/uL (1.2-6.7)
[2023-03-05 11:20] LABS: ALT 10 U/L (16-63); AST 26 U/L (15-37); Albumin 2.2 g/dL (3.4-5.0); Alkaline Phosphatase 106 U/L (46-116); Anion Gap 8.9 mmol/L (3-11); BUN 17 mg/dL (7-18); Bilirubin, Total 0.7 mg/dL (0.2-1.0); CO2 29.1 mmol/L (21.0-32.0); CREATININE 0.8 mg/dL (0.70-1.30); Calcium 9.1 mg/dL (8.5-10.1); Chloride 103 mmol/L (98-107); Estimated GFR 88.91 (mL/min/1.73m2); FREE T4 1.14 ng/dL (0.76-1.46); Glucose 119 mg/dL (74-106); Sodium 141 mmol/L (136-145); TSH 2.24 uIU/mL (0.36-3.74); Total Protein 7.5 g/dL (6.4-8.2)
== END 2023-03-05 04:43 | disposition home or self-care (01) ==
LOC: LBO 04:42
PROVIDERS: PCP Internal Medicine; Visit Provider Internal Medicine Medical Oncology
DX: C34.31 Malignant neoplasm of lower lobe, right bronchus or lung (principal); C79.51 Secondary malignant neoplasm of bone; Z79.899 Other long term (current) drug therapy
CPT/HCPCS: 36415; 80053; 83735; 84439; 84443; 85025

== ENCOUNTER 2023-03-14 03:31 | Outpatient (CLI) | payer MEDICARE, SELFPAY ==
[2023-03-14 09:06] LABS: Abs Immature Grans 0.07 10^3/uL (0.0-0.06); Absolute Basophil Count 0.11 10^3/uL (0.0-0.2); Absolute Eosinophil Count 0.41 10^3/uL (0.0-0.7); Absolute Lymphocyte Count 1.02 10^3/uL (1.2-3.4); Absolute Monocyte Count 0.91 10^3/uL (0.1-0.8); Absolute Neutrophil Count 5.08 10^3/uL (1.2-6.7); Basophils % 1.4; Eosinophils % 5.4; HGB 12.5 g/dL (13.5-17.5); Immature Grans % 0.9; Lymphocytes % 13.4; MCH 30.1 pg (27.0-33.0); MCHC 32.1 % (32.0-36.0); MCV 94 fL (80-95); Neutrophils % 66.9; Platelet Count 372 10^3/uL (130-400); RBC 4.15 10^6/uL (4.36-5.78); RDW 13.4 % (11.8-14.1); RDW-SD 46.5 fL
[2023-03-14 09:43] LABS: ALT 10 U/L (16-63); AST 16 U/L (15-37); Albumin 2.4 g/dL (3.4-5.0); Alkaline Phosphatase 126 U/L (46-116); Anion Gap 6.1 mmol/L (3-11); BUN 13 mg/dL (7-18); Bilirubin, Total 0.4 mg/dL (0.2-1.0); CO2 30.9 mmol/L (21.0-32.0); Calcium 9.3 mg/dL (8.5-10.1); Chloride 101 mmol/L (98-107); Estimated GFR 75.61 (mL/min/1.73m2); FREE T4 0.93 ng/dL (0.76-1.46); Glucose 137 mg/dL (74-106); Potassium 4.3 mmol/L (3.5-5.1); Sodium 138 mmol/L (136-145); TSH 1.74 uIU/mL (0.36-3.74); Total Protein 7.4 g/dL (6.4-8.2)
== END 2023-03-14 03:32 | disposition home or self-care (01) ==
PROVIDERS: PCP Internal Medicine; Visit Provider Internal Medicine Medical Oncology
DX: Z79.899 Other long term (current) drug therapy (principal); C34.31 Malignant neoplasm of lower lobe, right bronchus or lung; C79.51 Secondary malignant neoplasm of bone
CPT/HCPCS: 36415; 80053; 83735; 84439; 84443; 85025

== ENCOUNTER 2023-04-04 04:08 | Outpatient (CLI) | payer MEDICARE, SELFPAY ==
[2023-04-04 08:39] LABS: Abs Immature Grans 0.02 10^3/uL (0.0-0.06); Absolute Basophil Count 0.09 10^3/uL (0.0-0.2); Absolute Eosinophil Count 0.62 10^3/uL (0.0-0.7); Absolute Lymphocyte Count 1.22 10^3/uL (1.2-3.4); Absolute Monocyte Count 0.82 10^3/uL (0.1-0.8); Absolute Neutrophil Count 3.78 10^3/uL (1.2-6.7); Basophils % 1.4; Eosinophils % 9.5; HCT 38.4 % (40.0-50.0); HGB 12.1 g/dL (13.5-17.5); Immature Grans % 0.3; Lymphocytes % 18.6; MCH 29.9 pg (27.0-33.0); MCHC 31.5 % (32.0-36.0); MCV 95 fL (80-95); MPV 9.4 fL (8.0-11.0); Monocytes % 12.5; Neutrophils % 57.7; Platelet Count 274 10^3/uL (130-400); RBC 4.05 10^6/uL (4.36-5.78); RDW 14.2 % (11.8-14.1); RDW-SD 49.1 fL; WBC 6.55 10^3/uL (4.4-10.8)
[2023-04-04 09:08] LABS: ALT 15 U/L (16-63); AST 18 U/L (15-37); Alkaline Phosphatase 153 U/L (46-116); Anion Gap 3.6 mmol/L (3-11); BUN 16 mg/dL (7-18); Bilirubin, Total 0.5 mg/dL (0.2-1.0); CO2 31.4 mmol/L (21.0-32.0); CREATININE 0.8 mg/dL (0.70-1.30); Calcium 8.7 mg/dL (8.5-10.1); Chloride 104 mmol/L (98-107); Estimated GFR 88.91 (mL/min/1.73m2); FREE T4 0.74 ng/dL (0.76-1.46); Glucose 103 mg/dL (74-106); Magnesium 1.8 mg/dL (1.8-2.4); Potassium 4.2 mmol/L (3.5-5.1); Sodium 139 mmol/L (136-145); TSH 5.02 uIU/mL (0.36-3.74)
== END 2023-04-04 04:09 | disposition home or self-care (01) ==
LOC: LBO 04:08
PROVIDERS: PCP Internal Medicine; Visit Provider Internal Medicine Medical Oncology
DX: C34.31 Malignant neoplasm of lower lobe, right bronchus or lung (principal); Z79.899 Other long term (current) drug therapy; C79.51 Secondary malignant neoplasm of bone
CPT/HCPCS: 36415; 80053; 83735; 84439; 84443; 85025

== ENCOUNTER 2023-04-23 02:00 | Outpatient (CLI) | payer MEDICARE, SELFPAY ==
[2023-04-23 10:02] LABS: Abs Immature Grans 0.02 10^3/uL (0.0-0.06); Absolute Basophil Count 0.08 10^3/uL (0.0-0.2); Absolute Lymphocyte Count 1.19 10^3/uL (1.2-3.4); Absolute Neutrophil Count 4.57 10^3/uL (1.2-6.7); Basophils % 1.1; Eosinophils % 5.7; HCT 36.1 % (40.0-50.0); HGB 11.6 g/dL (13.5-17.5); Immature Grans % 0.3; Lymphocytes % 16.9; MCH 29.8 pg (27.0-33.0); MCHC 32.1 % (32.0-36.0); MCV 93 fL (80-95); Monocytes % 11.3; Neutrophils % 64.7; Platelet Count 222 10^3/uL (130-400); RBC 3.89 10^6/uL (4.36-5.78); RDW 14.1 % (11.8-14.1); WBC 7.06 10^3/uL (4.4-10.8)
[2023-04-23 10:19] LABS: ALT 11 U/L (16-63); AST 16 U/L (15-37); Alkaline Phosphatase 111 U/L (46-116); Anion Gap 3.5 mmol/L (3-11); BUN 18 mg/dL (7-18); Bilirubin, Total 0.5 mg/dL (0.2-1.0); CO2 29.5 mmol/L (21.0-32.0); CREATININE 0.8 mg/dL (0.70-1.30); Calcium 9.1 mg/dL (8.5-10.1); Chloride 103 mmol/L (98-107); Estimated GFR 88.91 (mL/min/1.73m2); Glucose 112 mg/dL (74-106); Magnesium 1.8 mg/dL (1.8-2.4); Potassium 4.4 mmol/L (3.5-5.1); Sodium 136 mmol/L (136-145); TSH 2.77 uIU/mL (0.36-3.74)
== END 2023-04-23 02:01 | disposition home or self-care (01) ==
LOC: LBO 02:00
PROVIDERS: PCP Internal Medicine; Visit Provider Internal Medicine Medical Oncology
DX: C34.31 Malignant neoplasm of lower lobe, right bronchus or lung (principal); C79.51 Secondary malignant neoplasm of bone; Z79.899 Other long term (current) drug therapy
CPT/HCPCS: 36415; 80053; 83735; 84439; 84443; 85025

== ENCOUNTER 2023-05-14 04:17 | Outpatient (CLI) | payer MEDICARE, SELFPAY ==
[2023-05-14 10:58] LABS: Abs Immature Grans 0.02 10^3/uL (0.0-0.06); Absolute Basophil Count 0.08 10^3/uL (0.0-0.2); Absolute Eosinophil Count 0.35 10^3/uL (0.0-0.7); Absolute Lymphocyte Count 1.12 10^3/uL (1.2-3.4); Absolute Monocyte Count 0.92 10^3/uL (0.1-0.8); Absolute Neutrophil Count 5.94 10^3/uL (1.2-6.7); Basophils % 0.9; Eosinophils % 4.2; HCT 40.3 % (40.0-50.0); HGB 12.7 g/dL (13.5-17.5); Immature Grans % 0.2; Lymphocytes % 13.3; MCH 29.4 pg (27.0-33.0); MCHC 31.5 % (32.0-36.0); MCV 93 fL (80-95); MPV 9.6 fL (8.0-11.0); Monocytes % 10.9; Neutrophils % 70.5; Platelet Count 275 10^3/uL (130-400); RBC 4.32 10^6/uL (4.36-5.78); RDW 13.9 % (11.8-14.1); RDW-SD 47.7 fL; WBC 8.43 10^3/uL (4.4-10.8)
[2023-05-14 11:22] LABS: ALT 11 U/L (16-63); AST 13 U/L (15-37); Albumin 3.6 g/dL (3.4-5.0); Alkaline Phosphatase 110 U/L (46-116); Anion Gap 6.8 mmol/L (3-11); BUN 16 mg/dL (7-18); Bilirubin, Total 0.6 mg/dL (0.2-1.0); CO2 30.2 mmol/L (21.0-32.0); CREATININE 0.9 mg/dL (0.70-1.30); Calcium 9.6 mg/dL (8.5-10.1); Chloride 102 mmol/L (98-107); FREE T4 1.03 ng/dL (0.76-1.46); Glucose 89 mg/dL (74-106); Sodium 139 mmol/L (136-145); TSH 1.26 uIU/mL (0.36-3.74); Total Protein 7.8 g/dL (6.4-8.2)
== END 2023-05-14 04:18 | disposition home or self-care (01) ==
LOC: LBO 04:17
PROVIDERS: PCP Internal Medicine; Visit Provider Internal Medicine Medical Oncology
DX: Z79.899 Other long term (current) drug therapy (principal); C34.31 Malignant neoplasm of lower lobe, right bronchus or lung; C79.51 Secondary malignant neoplasm of bone
CPT/HCPCS: 36415; 80053; 83735; 84439; 84443; 85025

== ENCOUNTER 2023-06-06 03:30 | Outpatient (CLI) | payer MEDICARE, SELFPAY ==
[2023-06-06 12:11] LABS: Abs Immature Grans 0.03 10^3/uL (0.0-0.06); Absolute Basophil Count 0.11 10^3/uL (0.0-0.2); Absolute Eosinophil Count 0.36 10^3/uL (0.0-0.7); Absolute Lymphocyte Count 1.34 10^3/uL (1.2-3.4); Absolute Monocyte Count 0.87 10^3/uL (0.1-0.8); Absolute Neutrophil Count 5.95 10^3/uL (1.2-6.7); Basophils % 1.3; Eosinophils % 4.2; HCT 41.2 % (40.0-50.0); HGB 13.4 g/dL (13.5-17.5); Immature Grans % 0.3; Lymphocytes % 15.5; MCH 30.2 pg (27.0-33.0); MCHC 32.5 % (32.0-36.0); MCV 93 fL (80-95); MPV 9.7 fL (8.0-11.0); Neutrophils % 68.7; Platelet Count 244 10^3/uL (130-400); RBC 4.43 10^6/uL (4.36-5.78); RDW 13.7 % (11.8-14.1); RDW-SD 46.9 fL; WBC 8.66 10^3/uL (4.4-10.8)
[2023-06-06 12:31] LABS: ALT 12 U/L (16-63); AST 14 U/L (15-37); Albumin 3.6 g/dL (3.4-5.0); Alkaline Phosphatase 101 U/L (46-116); Anion Gap 5.3 mmol/L (3-11); BUN 18 mg/dL (7-18); Bilirubin, Total 0.5 mg/dL (0.2-1.0); CO2 28.7 mmol/L (21.0-32.0); CREATININE 0.9 mg/dL (0.70-1.30); Calcium 8.7 mg/dL (8.5-10.1); Chloride 104 mmol/L (98-107); FREE T4 1.04 ng/dL (0.76-1.46); Glucose 104 mg/dL (74-106); Magnesium 2.3 mg/dL (1.8-2.4); Potassium 4.3 mmol/L (3.5-5.1); Sodium 138 mmol/L (136-145); TSH 0.76 uIU/mL (0.36-3.74); Total Protein 7.8 g/dL (6.4-8.2)
== END 2023-06-06 03:31 | disposition home or self-care (01) ==
LOC: LBO 03:30
PROVIDERS: PCP Internal Medicine; Visit Provider Internal Medicine Medical Oncology
DX: C34.31 Malignant neoplasm of lower lobe, right bronchus or lung; C79.51 Secondary malignant neoplasm of bone; Z79.899 Other long term (current) drug therapy
CPT/HCPCS: 36415; 80053; 83735; 84436; 84439; 84443; 85025

== ENCOUNTER 2023-06-25 03:56 | Outpatient (CLI) | payer MEDICARE, SELFPAY ==
[2023-06-25 08:19] LABS: Abs Immature Grans 0.03 10^3/uL (0.0-0.06); Absolute Eosinophil Count 0.47 10^3/uL (0.0-0.7); Absolute Lymphocyte Count 1.39 10^3/uL (1.2-3.4); Absolute Monocyte Count 1.25 10^3/uL (0.1-0.8); Absolute Neutrophil Count 5.42 10^3/uL (1.2-6.7); Basophils % 1.2; Eosinophils % 5.4; HCT 43.2 % (40.0-50.0); Immature Grans % 0.3; Lymphocytes % 16.1; MCHC 32.4 % (32.0-36.0); MCV 93 fL (80-95); MPV 9.5 fL (8.0-11.0); Monocytes % 14.4; Neutrophils % 62.6; Platelet Count 236 10^3/uL (130-400); RBC 4.66 10^6/uL (4.36-5.78); RDW 13.8 % (11.8-14.1); RDW-SD 47.3 fL; WBC 8.66 10^3/uL (4.4-10.8)
[2023-06-25 09:03] LABS: ALT 12 U/L (16-63); AST 12 U/L (15-37); Albumin 3.5 g/dL (3.4-5.0); Alkaline Phosphatase 100 U/L (46-116); Anion Gap 4.9 mmol/L (3-11); BUN 17 mg/dL (7-18); Bilirubin, Total 0.5 mg/dL (0.2-1.0); CO2 32.1 mmol/L (21.0-32.0); CREATININE 0.9 mg/dL (0.70-1.30); Calcium 8.7 mg/dL (8.5-10.1); Chloride 104 mmol/L (98-107); Estimated GFR 85.27 (mL/min/1.73m2); FREE T4 0.96 ng/dL (0.76-1.46); Glucose 94 mg/dL (74-106); Magnesium 2.4 mg/dL (1.8-2.4); Potassium 4.3 mmol/L (3.5-5.1); Sodium 141 mmol/L (136-145); TSH 1.27 uIU/mL (0.36-3.74); Total Protein 7.5 g/dL (6.4-8.2)
== END 2023-06-25 03:57 | disposition home or self-care (01) ==
LOC: LBO 03:56
PROVIDERS: PCP Internal Medicine; Visit Provider Internal Medicine Medical Oncology
DX: Z79.899 Other long term (current) drug therapy (principal); C34.31 Malignant neoplasm of lower lobe, right bronchus or lung; C79.51 Secondary malignant neoplasm of bone
CPT/HCPCS: 36415; 80053; 83735; 84439; 84443; 85025

== ENCOUNTER 2023-07-16 03:55 | Outpatient (CLI) | payer MEDICARE, SELFPAY ==
--- OUTSIDE RECORDS SUMMARY | 2023-07-16 03:58 | XMS_ITS | Continuity of Care Document ---
Author Name Unknown Organization [facility] Address [address] [place] [address] Care Team Providers Care Cloth Roll Winder Name Role Phone Fazal Ponce Primary Care Physician Encounter [facility] Date(s): 01/24/23 - 01/24/23 [facility] [address] [place] [address] Encounter Diagnosis Back pain(Discharge Diagnosis) - 01/24/23 Discharge Disposition: Home or Self Care Attending Physician: Michelle Alex MD Admitting Physician: Michelle Alex MD Allergies, Adverse Reactions, Alerts No Known Medication Allergies Assessment and Plan Future Appointments Future Scheduled Tests Radiology* CT Chest w/o Contrast 12/07/22 Functional Status 01/24/23 Family Member Travel History No recent t ravel Recent Travel History No recent travel Other exposure to Infectious Disease Non e Immunizations Given and Recorded Vaccine Date Status [...] Recorded tetanus/diphth/pertuss (Tdap) adult/adol 08/15/12 Recorded Novel [id number], all formulation 08/24/09 Recorded zoster vaccine live 02/03/08 Recorded pneumococcal 23-polyvalent vaccine 09/19/05 Record ed tetanus-diphth toxoids (Td) adult/adol 08/13/00 Re corded 1Result Comment: VIS given: 05-21-2018 VIS published date: TIV/QIV 03/19/2015 Administered by Dilma Hamilton, Double End Trimmer 05-21-2018 Medications !-Zofran ODT 4 mg oral tablet, disintegrating 4 mg = 1 tab, Oral, every 8 hr, PRN as needed for nausea/vomiting, # 15 tab, 0 Refill(s), 01/28/23 15:11:00 EDT, Pharmacy: [id number], 180, cm, 01/19/23 12:06:00 EDT, Height/Length Dosing, 69.4, kg, 01/19/23 12:06:00 EDT, Weight Dosing Start Date: 01/19/23 Stop Date: 01/28/23 Status: Ordered atorvastatin 40 mg oral tablet 1 tab, Oral, Daily, # 90 tab, 3 Refill(s), Pharmacy: [facility] ([facility]) Start Date: 06/25/22 Status: Ordered azithromycin 250 mg oral tablet See Instructions, 2 tabs day 1, then one tad daily x 4 more days, # 6 tab, 0 Refill(s), Pharmacy: [facility] Start Date: 12/29/22 Status: Ordered Sandrine Low Dose 81 mg oral delayed release tablet 162 mg = 2 tab, Oral, Daily, # 90 tab, 0 Refill(s) Start Date: 02/02/22 Status: Ordered benzonatate 200 mg oral capsule 200 mg = 1 cap, Oral, every 8 hr, PRN as needed for cough, # 30 cap, 1 Refill(s), Pharmacy: [facility] Start Date: 01/05/23 Status: Ordered enalapril 5 mg oral tablet 1 tab, Oral, Daily, # 100 tab, 2 Refill(s), Pharmacy: [facility] ([facility]) Start Date: 12/19/22 Status: Ordered HYDROmorphone 2 mg oral tablet 2 mg = 1 tab, Oral, every 6 hr, PRN as needed for pain, # 20 tab, 0 Refill(s), Pharmacy: [facility], 181, cm, 01/20/23 11:12:00 EDT, Height/Length Dosing, 77, kg, 01/20/23 11:12:00 EDT, Weight Dosing Start Date: 01/23/23 Status: Ordered ibuprofen 800 mg oral tablet 800 mg = 1 tab, Oral, every 8 hr, # 30 tab, 0 Refill(s), 01/28/23 15:11:00 EDT, Pharmacy: [facility], 180, cm, 01/19/23 12:06:00 EDT, Height/Length Dosing, 69.4, kg, 01/19/23 12:06:00 EDT, Weight Dosing Start Date: 01/19/23 Stop Date: 01/28/23 Status: Ordered levoFLOXacin 750 mg oral tablet 750 mg = 1 tab, Oral, Daily, # 5 tab, 0 Refill(s), Pharmacy: [facility], 181, cm, 01/20/23 11:12:00 EDT, Height/Length Dosing, 77, kg, 01/20/23 11:12:00 EDT, Weight Dosing Start Date: 01/23/23 Status: Ordered Metoprolol Tartrate 50 mg oral tablet 1 tab, Oral, BID, # 180 tab, 3 Refill(s), Pharmacy: [facility] ([facility]) Start Date: 06/16/22 Status: Ordered nitroglycerin 0.3 mg sublingual tablet 0.3 mg = 1 tab, SL, every 5 min, PRN as needed for chest pain, not to exceed 3 doses/15 min--if pain persists, seek medical attention, # 100 tab, 0 Refill(s) Start Date: 6/23/22 Status: Ordered oxyCODONE 5 mg oral tablet See Instructions, 1 tp 2 tablets every 6 hours as needed for pain, # 40 tab, 0 Refill(s), Pharmacy:[id number], 180, cm, 01/12/23 14:31:00 EDT, Height/Length Dosing, 74.84, kg, 01/12/23 14:31:00 EDT, Weight Dosing Start Date: 01/16/23 Status: Ordered prochlorperazine 5 mg oral tablet 2.5 mg = 0.5 tab, Oral, BID, PRN nausea/vomiting, # 10 tab, 0 Refill(s), 01/31/23 13:21:00 EDT, Pharmacy: [facility], 181, cm, 01/20/23 11:12:00 EDT, Height/Length Dosing, 77, kg, 01/20/23 11:12:00 EDT, Weight Dosing Start Date: 01/20/23 Stop Date: 01/31/23 Status: Ordered Tylenol 325 mg oral capsule 650 mg = 2 cap, Oral, every 4 hr, PRN as needed for pain, # 90 cap, 0 Refill(s), 01/25/23 23:59:00 EDT, Pharmacy: [facility], 180, cm, 01/12/23 14:31:00 EDT, Height/Length Dosing, 74.84, kg, 01/12/23 14:31:00 EDT, Weight Dosing Start Date: 01/12/23 Stop Date: 01/25/23 Status: Ordered Tylenol Extra Strength 500 mg oral tablet 500 mg = 1 tab, Oral, every 4 hr, PRN as needed for pain, # 24 tab, 0 Refill(s), 01/27/23 15:11:00 EDT, Pharmacy: [facility], 180, cm, 01/19/23 12:06:00 EDT, Height/Length Dosing, 69.4, kg,01/19/23 12:06:00 EDT, Weight Dosing Start Date: 01/19/23 Stop Date: 01/27/23 Status: Ordered Problem List Condition Confirmation Course Effective Dates Status H ealth Status Informant Atherosclerosis of coronary artery without angina pectoris Confirmed Active Back pain Confirmed Active Chronic pain Confirmed Active Hyperplasia of prostate Confirmed Active Hypertensive disorder Confirmed Active Lumbar radiculopathy Confirmed Active Lung mass Confirmed Active Mixed hyperlipidemia Confirmed Active Overweight Confirmed Active Peripheral vascular disease Confirmed 10/28/20 Active Respiratory crackles Confirmed 12/09/21 Active Procedures Procedure Date Related Diagnosis Body Site Status Colon cancer screening 1 11/17/19 Completed Colonoscopy 05/13/07 Completed Appendectomy 1963 Completed Angioplasty 2 Completed 1cologuard 2And stents x3 Vital Signs Most recent to oldest [Reference Range]: 1 2 3 Temperature Temporal Artery [36-38 Deg C] 36.6 Deg C (01/24/23 3:39 AM) Peripheral Pulse Rate [60-100 bpm] 77 bpm (01/24/23 6:00 AM) 75 bpm (01/24/23 5:13 AM) 104 bpm *HI* (01/24/23 3:39 AM) Respiratory Rate [12-24 br/min] 16 br/min (01/24/23 6:00 AM) 18 br/min (01/24/23 5:13 AM) 20 br/min (01/24/23 3:39 AM) Blood Pressure [90-140/60-90 mmHg] 138/61mmHg (01/24/23 6:00 AM) 140/68mmHg (01/24/23 5:13 AM) 149/73mmHg *HI* (01/24/23 3:39 AM) Weight Dosing 71.50 kg (01/24/23 3:46 AM) Weight Estimated 71.50 kg (01/24/23 3:39 AM) Height/Length Dosing 180.000 cm (01/24/23 3:46 AM) Height/Length Estimated 180.000 cm (01/24/23 3:39 AM) Social History Social History Type Response Tobacco Former tobacco user Tobacco Use:. 1 Sex Male 1quit 1980 smoked for 25 yrs. Hospital Discharge Instructions Patient Education 01/24/2023 03:50:50 Chronic Back Pain Chronic Back Pain When back pain lasts longer than 3 months, it is called chronic back pain. The cause of your back pain may not be known. Some common causes include: ??? Wear and tear (degenerative disease) of the bones, ligaments, or disks in your back. ??? Inflammation and stiffness in your back (arthritis). People who have chronic back pain often go through certain periods in which the pain is more intense (flare-ups). Many people can learn to manage the pain with home care. Follow these instructions at home: Pay attention to any changes in your symptoms. Take these actions to help with your pain: Managing pain and stiffness ??? If directed, apply ice to the painful area. Your health care provider may recommend applying ice during the first 24???48 hours after a flare-up begins. To do this: ??? Put ice in a plastic bag. ??? Place a towel between your skin and the bag. ??? Leave the ice on for 20 minutes, 2???3 times per day. ??? If directed, apply heat to the affected area as often as told by your health care provider. Usethe heat source that your health care provider recommends, such as a moist heat pack or a heating pad. ??? Place a towel between your skin and the heat source. ??? Leave the heat on for 20???30 minutes. ??? Remove the heat if your skin turns bright red. This is especially important if you are unable to feel pain, heat, or cold. You may have a greater risk of getting burned. ??? Try soaking in a warm tub. Activity ??? Avoid bending and other activities that make the problem worse. ??? Maintain a proper position when standing or sitting: ??? When standing, keep your upper back and neck straight, with your shoulders pulled back. Avoid slouching. ??? When sitting, keep your back straight and relax your shoulders. Do not round your shoulders or pull them backward. ??? Do not sit or line rider one place for long periods of time. ??? Take brief periods of rest throughout the day. This will reduce your pain. Resting in a lying or standing position is usually better than sitting to rest. ??? When you are resting for longer periods, mix in some mild activity or stretching between periods of rest. This will help to prevent stiffness and pain. ??? Get regular exercise. Ask your health care provider what activities are safe for you. ??? Do not lift anything that is heavier than 10 lb (4.5 kg), or the limit that you are told, untilyour health care provider says that it is safe. Always use proper lifting technique, which includes: ??? Bending your knees. ??? Keeping the load close to your body. ??? Avoiding twisting. ??? Sleep on a firm mattress in a comfortable position. Try lying on your side with your knees slightly bent. If you lie on your back, put a pillow under your knees. Medicines ??? Treatment may include medicines for pain and inflammation taken by mouth or applied to the skin, prescription pain medicine, or muscle relaxants. Take [id number] and prescription medicines only as told by your health care provider. ??? Ask your health care provider if the medicine prescribed to you: ??? Requires you to avoid driving or using machinery. ??? Can cause constipation. You may need to take these actions to prevent or treat constipation: ??? Drink enough fluid to keep your urine pale yellow. ??? Take [id number]-[id number] or prescription medicines. ??? Eat foods that are high in fiber, such as beans, whole grains, and fresh fruits and vegetables. ??? Limit foods that are high in fat and processed sugars, such as fried or sweet foods. General instructions ??? Do not use any products that contain nicotine or tobacco, such as cigarettes, e-cigarettes, andchewing tobacco. If you need help quitting, ask your health care provider. ??? Keep all follow-up visits as told by your health care provider. This is important. Contact a health care provider if: ??? You have pain that is not relieved with rest or medicine. ??? Your pain gets worse, or you have new pain. ??? You have a high fever. ??? You have rapid weight loss. ??? You have trouble doing your normal activities. Get help right away if: ??? You have weakness or numbness in one or both of your legs or feet. ??? You have trouble controlling your bladder or your bowels. ??? You have severe back pain and have any of the following: ??? Nausea or vomiting. ??? Pain in your abdomen. ??? Shortness of breath or you faint. Summary ??? Chronic back pain is back pain that lasts longer than 3 months. ??? When a flare-up begins, apply ice to the painful area for the first 24???48 hours. ??? Apply a moist heat pad or use a heating pad on the painful area as directed by your health careprovider. ??? When you are resting for longer periods, mix in some mild activity or stretching between periods of rest. This will help to prevent stiffness and pain. This information is not intended to replace advice given to you by your health care provider. Make sure you discuss any questions you have with your health care provider. Document Revised: 09/08/2020 Document Reviewed: 09/08/2020 Elsevier Patient Education ?? 2021 [employer]. Physician Emergency department Note * Michelle Alex MD: PERFORM Event Display: ED Note Physician Authored Date: [id number] MIRNA CANSECO :1940 Age:82 years Sex:Male Visit Date:01/24/2023 Primary Care Physician: Fazal Ponce DO Basic Information Time Seen: Michelle Alex MD / 01/24/2023 03:50 Chief Complaint Pt c/o lower back pain since october. Pt took 5mg oxycodone at approx 0300 with no relief. History Of Present Illness: 82-year-old male past medical history PVD, lung mass, hyperlipidemia, hypertension,??currently undergoing cancer work-up/evaluation presents??with??back pain. ??Pt had multiple presentation to the EDwith back pain and??was recently found to have lesions on MRI concerning for metastatic disease. Heis awaiting a lung biopsy and a PET scan at [facility]. His pain has not been well controlled with oxycodone and his pcp has written for Hydromorphone po but the pt has not picked it up at the pharmacy yet. Pt reports several months of lower back pain. on both sides. No radiation. Worse on laying down flat.??No F/C. No numbness/tingling/weakness of the lower extremities. No b/b incontinence or perianal anesthesia. Pin no longer relieved with oxycodone, thus the new hydromorphone ordered by hispcp. The patient rates his pain as 20 out of 10.?? Physical Exam Vitals & Measurements T:??36.6?C ??(Temporal Artery)?? HR:??104??(Peripheral)?? RR:??20?? BP:??149/73?? SpO2:??97%?? HT:??180.000??cm?? WT:??71.50??kg??(Estimated)?? Pain Score:??10?? GENERAL: Well developed well nourished in nad HEENT: Moist mucous membranes. NECK: Supple, no JVD. BACK: no ttp over the spine, no step off, there is paraspinal ttp b/l EXTREMITIES: No clubbing, cyanosis or edema, motor 5/5 in all 4 extremities, sensation intact ?? Medical Decision Makin-year-old male past medical history PVD, lung mass, hyperlipidemia, hypertension,??currently undergoing cancer work-up/evaluation presents??with??back pain. Pt found to have MRI changes concerning for metastatic lesions. Awaiting further work up at [facility]. Now with uncontrolled pain. He is neurovascularly intact on exam with no red flags for cauda equina or discitis Plan: analgesia Pt given Toradol, Dilaudid iv and Flexeril po with improvement in pain down to 1/10. He requested d/c home and will get his new medications from the pharmacy this morning. f/u at [facility] as scheduled. ?? Discharge instructions and return precautions discussed, all questions answered. Procedure No Qualifying Data Assessment/Plan 1.??Back pain??M54.9 Ordered: Discharge Patient, 01/24/23 4:50:00 EDT, Constant Indicator ?? Patient Education Chronic Back Pain Medication Reconciliation Unchanged acetaminophen (Tylenol 325 mg oral capsule)2 Capsules Oral (given by mouth) every 4 hours as neededas needed for pain. Refills: 0. ?? acetaminophen (Tylenol Extra Strength 500 mg oral tablet)1 tab Oral (given by mouth) every 4 hours as needed as needed for pain. Refills: 0. ?? aspirin (Sandrine Low Dose 81 mg oral delayed release tablet)2 tab Oral (given by mouth) every day. ?? atorvastatin (atorvastatin 40 mg oral tablet)1 tab Oral (given by mouth) every day. Refills: 3. ?? azithromycin (azithromycin 250 mg oral tablet)2 tabs day 1, then one tad daily x 4 more days. Refills: 0. ?? benzonatate (benzonatate 200 mg oral capsule)1 Capsules Oral (given by mouth) every 8 hours as needed as needed for cough. Refills: 1. ?? enalapril (enalapril 5 mg oral tablet)1 tab Oral (given by mouth) every day. Refills: 2. ?? HYDROmorphone (HYDROmorphone 2 mg oral tablet)1 tab Oral (given by mouth) every 6 hours as needed as needed for pain. Refills: 0. ?? ibuprofen (ibuprofen 800 mg oral tablet)1 tab Oral (given by mouth) every 8 hours. Refills: 0. ?? levoFLOXacin (levoFLOXacin 750 mg oral tablet)1 tab Oral (given by mouth) every day. Refills: 0. ?? metoprolol (Metoprolol Tartrate 50 mg oral tablet)1 tab Oral (given by mouth) 2 times a day. Refills: 3. ?? nitroglycerin (nitroglycerin 0.3 mg sublingual tablet)1 tab Sublingual (dissolve under the tongue) every 5 minutes as needed as needed for chest pain. not to exceed 3 doses/15 min--if pain persists, seek medical attention. ?? ondansetron (!-Zofran ODT 4 mg oral tablet, disintegrating)1 tab Oral (given by mouth) every 8 hours as needed as needed for nausea/vomiting. Refills: 0. ?? oxyCODONE (oxyCODONE 5 mg oral tablet)1 tp 2 tablets every 6 hours as needed for pain. Refills: 0. ?? prochlorperazine (prochlorperazine 5 mg oral tablet)0.5 tab Oral (given by mouth) 2 times a day as needed nausea/vomiting. Refills: 0. Problem List/Past Medical History Ongoing Atherosclerosis of coronary artery without angina pectoris Back pain Chronic pain Hyperplasia of prostate Hypertensive disorder Lumbar radiculopathy Lung mass Mixed hyperlipidemia Overweight Peripheral vascular disease Respiratory crackles Historical No qualifying data Procedure/Surgical History ???Colon cancer screening (11/18/2019)???Colonoscopy (05/14/2007)???Appendectomy (1963)???Angioplasty Medication Administration Given !-Flexeril, 10 mg, Oral !-Zofran, 4 mg, IV Push Dilaudid, 2 mg, Slow IV Push Toradol, 30 mg, IV Push Allergies No Known Medication Allergies Social History Alcohol Never Electronic Cigarette/Vaping Electronic Cigarette Use: Never. Substance Use Never Tobacco Former tobacco user Tobacco Use:.- Comments: quit 1981 smoked for 25 yrs. Family History Bipolar disorder: Sister and Brother. CABG - Coronary artery bypass graft: Sister. Healthy adult: Mother. Myocardial infarction: Father. Family Member(s): ?? FATHER, at age: 63 Years. Cause of : Electronically Signed on 01/24/23 04:54 AM Michelle Alex MD Emergency department Discharge instructions * Michelle Alex MD: PERFORM Event Display: ED Discharge Information Authored Date: [id number] MIRNA CANSECO :1940 Age:82 years Sex:Male Visit Date:01/24/2023 Primary Care Physician: Fazal Ponce DO Discharge Instructions We would like to thank you for allowing us to assist you with your healthcare needs. The following includes patient education materials and information regarding your injury/illness. Diagnosis from Today's Visit Back pain Discharge Vitals Temperature??(Temporal Artery) 97.9 ??F (36.6 ??C) Heart Rate??(Peripheral) 104 Respiratory Rate?? 20 Blood Pressure?? 149/73?? Height?? 70.87 in (180.000 cm) Weight??(Estimated) 157.66 lb (71.50 kg) Allergies No Known Medication Allergies What to Do Next Instructions from Your Care Team Please spanish moss picker your new pain medications from the pharmacy this morning. Follow up as scheduled at [facility] and with primary care for the rest of your work up. Return to the ED for any new or worsening symptoms. Upcoming Scheduled Appointments Sunday 1:15 PM EDT ?? Sunday 8:20 AM EDT ?? You were treated today on an emergency basis; it may be garcia to contact your primary care provider to notify them of your visit today. You may have been referred to your regular doctor or a specialist, please follow up as instructed. If your condition worsens or you can't get in to see the doctor, contact the Emergency Department. Medications What How Much When Why Instructions Next Dose Unchanged acetaminophen (Tylenol 325 mg oral capsule) 2 Capsules Oral (given by mouth) Every 4 hours as needed for as needed for pain Abnormal MRI, lumbar spine Lung mass Unchanged acetaminophen (Tylenol Extra Strength 500 mg oral tablet) 1 tab Oral (given by mouth) Every 4 hours as needed for as needed for pain Low back pain Leukocytosis Unchanged aspirin (Sandrine Low Dose 81 mg oral delayed release tablet) 2 tab Oral (given by mouth) Every day Unchanged atorvastatin (atorvastatin 40 mg oral tablet) 1 tab Oral (given by mouth) Every day Unchanged azithromycin (azithromycin 250 mg oral tablet) See instructions Cough 2 tabs day 1, then one tad daily x 4 more days ?? Unchanged benzonatate (benzonatate 200 mg oral capsule) 1 Capsules Oral (given by mouth) Every 8 hours as needed for as needed for cough Cough Unchanged enalapril (enalapril 5 mg oral tablet) 1 tab Oral (given by mouth) Every day Unchanged HYDROmorphone (HYDROmorphone 2 mg oral tablet) 1 tab Oral (given by mouth) Every 6 hours as needed for as needed for pain Lung mass Unchanged ibuprofen (ibuprofen 800 mg oral tablet) 1 tab Oral (given by mouth) Every 8 hours Low back pain Leukocytosis Unchanged levoFLOXacin (levoFLOXacin 750 mg oral tablet) 1 tab Oral (given by mouth) Every day Leukocytosis Unchanged metoprolol (Metoprolol Tartrate 50 mg oral tablet) 1 tab Oral (given by mouth) 2 times a day Unchanged nitroglycerin (nitroglycerin 0.3 mg sublingual tablet) 1 tab Sublingual (dissolve under the tongue) Every 5 minutes as needed for as needed for chest pain not to exceed 3 doses/ 15 min--if pain persists, seek medical attention ?? Unchanged ondansetron (!-Zofran ODT 4 mg oral tablet, disintegrating) 1 tab Oral (given by mouth) Every 8 hours as needed for as needed for nausea/vomiting Low back pain Leukocytosis Unchanged oxyCODONE (oxyCODONE 5 mg oral tablet) See instructions Lung mass 1 tp 2 tablets every 6 hours as needed for pain ?? Unchanged prochlorperazine (prochlorperazine 5 mg oral tablet) 0.5 tab Oral (given by mouth) 2 times a day as needed for nausea/vomiting Back pain Vomiting Education Materials Chronic Back Pain When back pain lasts longer than 3 months, it is called chronic back pain. The cause of your back pain may not be known. Some common causes include: ? Wear and tear (degenerative disease) of the bones, ligaments, or disks in your back. ? Inflammation and stiffness in your back (arthritis). People who have chronic back pain often go through certain periods in which the pain is more intense (flare-ups). Many people can learn to manage the pain with home care. Follow these instructions at home: Pay attention to any changes in your symptoms. Take these actions to help with your pain: Managing pain and stiffness ? If directed, apply ice to the painful area. Your health care provider may recommend applying ice during the first 24???48 hours after a flare-up begins. To do this: ? Put ice in a plastic bag. ? Place a towel between your skin and the bag. ? Leave the ice on for 20 minutes, 2???3 times per day. ? If directed, apply heat to the affected area as often as told by your health care provider. Use theheat source that your health care provider recommends, such as a moist heat pack or a heating pad. ? Place a towel between your skin and the heat source. ? Leave the heat on for 20???30 minutes. ? Remove the heat if your skin turns bright red. This is especially important if you are unable to feel pain, heat, or cold. You may have a greater risk of getting burned. ? Try soaking in a warm tub. Activity ? Avoid bending and other activities that make the problem worse. ? Maintain a proper position when standing or sitting: ? When standing, keep your upper back and neck straight, with your shoulders pulled back. Avoid slouching. ? When sitting, keep your back straight and relax your shoulders. Do not round your shoulders or pullthem backward. ? Do not sit or line rider one place for long periods of time. ? Take brief periods of rest throughout the day. This will reduce your pain. Resting in a lying or standing position is usually better than sitting to rest. ? When you are resting for longer periods, mix in some mild activity or stretching between periods ofrest. This will help to prevent stiffness and pain. ? Get regular exercise. Ask your health care provider what activities are safe for you. ? Do not lift anything that is heavier than 10 lb (4.5 kg), or the limit that you are told, until your health care provider says that it is safe. Always use proper lifting technique, which includes: ? Bending your knees. ? Keeping the load close to your body. ? Avoiding twisting. ? Sleep on a firm mattress in a comfortable position. Try lying on your side with your knees slightlybent. If you lie on your back, put a pillow under your knees. Medicines ? Treatment may include medicines for pain and inflammation taken by mouth or applied to the skin, prescription pain medicine, or muscle relaxants. Take [id number] and prescription medicines onlyas told by your health care provider. ? Ask your health care provider if the medicine prescribed to you: ? Requires you to avoid driving or using machinery. ? Can cause constipation. You may need to take these actions to prevent or treat constipation: ? Drink enough fluid to keep your urine pale yellow. ? Take wjjc-fmq-jmsyymh or prescription medicines. ? Eat foods that are high in fiber, such as beans, whole grains, and fresh fruits and vegetables. ? Limit foods that are high in fat and processed sugars, such as fried or sweet foods. General instructions ? Do not use any products that contain nicotine or tobacco, such as cigarettes, e- cigarettes, and chewing tobacco. If you need help quitting, ask your health care provider. ? Keep all follow-up visits as told by your health care provider. This is important. Contact a health care provider if: ? You have pain that is not relieved with rest or medicine. ? Your pain gets worse, or you have new pain. ? You have a high fever. ? You have rapid weight loss. ? You have trouble doing your normal activities. Get help right away if: ? You have weakness or numbness in one or both of your legs or feet. ? You have trouble controlling your bladder or your bowels. ? You have severe back pain and have any of the following: ? Nausea or vomiting. ? Pain in your abdomen. ? Shortness of breath or you faint. Summary ? Chronic back pain is back pain that lasts longer than 3 months. ? When a flare-up begins, apply ice to the painful area for the first 24???48 hours. ? Apply a moist heat pad or use a heating pad on the painful area as directed by your health care provider. ? When you are resting for longer periods, mix in some mild activity or stretching between periods ofrest. This will help to prevent stiffness and pain. This information is not intended to replace advice given to you by your health care provider. Make sure you discuss any questions you have with your health care provider. Document Revised: 09/08/2020 Document Reviewed: 09/08/2020 [employer] Patient Education ?? 2021 [employer] 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 Signature: Relationship to Patient: Witness Name/Signature: Date: Electronically Signed on: 01/24/2023 04:52 EDTSigned by:[facility] Emergency department Note * Karen Lino: PERFORM Event Display: ED Notes Authored Date: [id number] Patient Care team information Care Team Personnel Name: Fazal Ponce DO Position: Physician Member Role: Informed Provider Address: Address: [address] Name: Maximiliano Campos RN Position: Nurse Member Role: ED Nurse Name: Michelle Alex MD Position: Physician Member Role: ED Physician Address: Address: [address] [place] [address] Care Team Related Persons Name: BRICE SCOTT Address: [place] [address] Address: Home [address] [place] [phone] Name: CHIDI CANSECO Address: Home [address] [place] [phone]
--- OUTSIDE RECORDS SUMMARY | 2023-07-16 03:58 | XMS_ITS | Continuity of Care Document ---
Author Name Unknown Organization [facility] Address [address] [place] [address] [facility]): [facility]23 - 03/29/23 [facility] [address] [place] [address] us Discharge Disposition: Home or Self Care Attending Physician: Betty Mercado APRN Admitting Physician: Betty Mercado APRN Allergies, Adverse Reactions, Alerts No Known Medication Allergies Assessment and Plan Future Appointments Future Scheduled Tests Radiology* CT Chest w/o Contrast 12/07/22 Immunizations Given and Recorded Vaccine Date Status Refusal Reason SARS-CoV-2 (COVID-19) mRNA-1273 vaccine 06/06/21 R ecorded SARS-CoV-2 (COVID-19) mRNA-1273 vaccine 10/06/20 R ecorded SARS-CoV-2 (COVID-19) mRNA-1273 vaccine 09/08/20 R ecorded influenza virus vaccine, live 10/13/20 Recorded influenza virus vaccine, live 04/19/20 Recorded influenza virus vaccine, live 05/16/19 Recorded influenza, unspecified formulation 10/13/20 Record ed influenza, unspecified formulation 04/19/20 Record ed influenza, unspecified formulation 1 05/21/18 Carson rded influenza, unspecified formulation 04/26/17 Record ed SARS-CoV-2 (COVID-19) mRNA [id number]-162b2 vax 09/08/20 Recorded influenza virus vaccine, inactivated 05/05/16 Carson [...] Recorded tetanus/diphth/pertuss (Tdap) adult/adol 08/15/12 Recorded Novel [id number], all formulation 08/24/09 Recorded zoster vaccine live 02/03/08 Recorded pneumococcal 23-polyvalent vaccine 09/19/05 Record ed tetanus-diphth toxoids (Td) adult/adol 08/13/00 Re corded 1Result Comment: VIS given: 05-21-2018 VIS published date: TIV/QIV 03/19/2015 Administered by Dilma Hamilton, Instrument Lens Grinder 05-21-2018 Medications atorvastatin 40 mg oral tablet 1 tab, Oral, Daily, # 100 tab, 2 Refill(s), Pharmacy: [email or web address] ([facility]), 181, cm, 03/08/23 12:27:00 EDT, Height/Length Dosing, 61, kg, 03/08/23 12:27:00 EDT, Weight Dosing Start Date: 03/26/23 Status: Ordered Sandrine Low Dose 81 mg oral delayed release tablet 162 mg = 2 tab, Oral, Daily, # 90 tab, 0 Refill(s) Start Date: 02/02/22 Status: Ordered buprenorphine 20 mcg/hr transdermal film, extended release 1 patches, Topical, every week, 0 Refill(s) Start Date: 03/22/23 Status: Ordered Eliquis 5 mg oral tablet 5 mg = 1 tab, Oral, BID, # 60 tab, 1 Refill(s), Pharmacy: [id number], 180, cm, 01/24/23 3:46:00 EDT, Height/Length Dosing, 71.5, kg, 01/24/23 3:46:00 EDT, Weight Dosing Start Date: 02/27/23 Status: Ordered gabapentin 300 mg oral capsule 300 mg = 1 cap, Oral, TID, # 90 cap, 1 Refill(s), Pharmacy: [facility], 181, cm, 03/08/2312:27:00 EDT, Height/Length Dosing, 61, kg, 03/08/23 12:27:00 EDT, Weight Dosing Start Date: 03/20/23 Status: Ordered HYDROmorphone 2 mg oral tablet See Instructions, PRN as needed for pain, 3 to 4 tabs every 6 hours as needed, # 168 tab, 0 Refill(s), Pharmacy: [id number], 181, cm, 03/08/23 12:27:00 EDT, Height/Length Dosing, 61, kg, 03/08/23 12:27:00 EDT, Weight Dosing Start Date: 03/14/23 Status: Ordered HYDROmorphone 2 mg oral tablet 2 mg = 1 tab, Oral, every 6 hr, PRN as needed for pain, # 20 tab, 0 Refill(s), Pharmacy: On license of [facility] ([facility]), 181, cm, 03/08/23 12:27:00 EDT, Height/Length Dosing, 61, kg, 03/08/23 12:27:00 EDT, Weight Dosing Start Date: 03/20/23 Status: Ordered Metoprolol Tartrate 50 mg oral tablet See Instructions, 1 tablet in the am (50mg) and 2 tablets in the pm (100mg), # 90 tab, 3 Refill(s),other reason (Rx) Start Date: 02/27/23 Status: Ordered mirtazapine 15 mg oral tablet 15 mg = 1 tab, Oral, every day at bedtime, # 30 tab, 2 Refill(s), Pharmacy: [facility], 180, cm, 01/24/23 3:46:00 EDT, Height/Length Dosing, 71.5, kg, 01/24/23 3:46:00 EDT, Weight Dosing Start Date: 02/27/23 Status: Ordered nitroglycerin 0.3 mg sublingual tablet 0.3 mg = 1 tab, SL, every 5 min, PRN as needed for chest pain, not to exceed 3 doses/15 min--if pain persists, seek medical attention, # 100 tab, 0 Refill(s) Start Date: 02/02/22 Status: Ordered nystatin 100,000 units/mL oral suspension 100,000 units = 1 mL, Oral, QID, # 30 mL, 1 Refill(s), Pharmacy: [id number], 180, cm, 01/24/23 3:46:00 EDT, Height/Length Dosing, 71.5, kg, 01/24/23 3:46:00 EDT, Weight Dosing Start Date: 02/27/23 Status: Ordered Problem List Condition Confirmation Course Effective Dates Status H ealth Status Informant Adenocarcinoma, lung Confirmed Active Atherosclerosis of coronary artery without angina pectoris Confirmed Active Back pain Confirmed Active Chronic pain Confirmed Active Hyperplasia of prostate Confirmed Active Hypertensive disorder Confirmed Active Idiopathic pulmonary fibrosis Confirmed 01/25/23 Active Lumbar radiculopathy Confirmed 01/25/23 Active Metastatic adenocarcinoma Confirmed Active Metastatic malignant neoplasm to bone Confirmed 02/08/23 Active Metastasis to spinal column Confirmed Active Mixed hyperlipidemia Confirmed Active Moderate protein energy malnutrition 1 Confirmed 01/31/23 Active Myocardial infarction Confirmed 02/04/23 Active Overweight Confirmed Active Peripheral vascular disease Confirmed 10/28/20 Active Primary malignant neoplasm of right lower lobe of lung Confirmed 02/08/23 Active Respiratory crackles Confirmed 12/09/21 Active 1Outside Source Comment: Overview: Malnutrition Diagnosis: Identified: less than or equal to 75% of estimated energy requirement forgreater than or equal to 1 month, 5% weight loss in 1 month, Mild Fat Loss, and Mild Lean Muscle Loss is consistent with Moderate protein-calorie malnutrition in the setting of chronic illness (Medardo et al, JPEN J Parenteral Enteral Nutr. 2012 December; 36(3): 273-83) Procedures Procedure Date Related Diagnosis Body Site [...] Physician Member Role: Informed Provider Address: Address: [facility] [address] [place] [address]- Care Team Related Persons Name: BRICE SCOTT Address: Alternate [address] [place] [address], [phone] Address: Home [address] [place] [address], [phone] Name: VIKTOR WHITE Address: Alternate [address] [facility], [id number] Address: Home [address] [facility], [phone] Name: JIMI CANSECO Address: Home Name: CHIDI CANSECO Address: Home [address] [facility], [place] [id number]
--- OUTSIDE RECORDS SUMMARY | 2023-07-16 03:59 | XMS_ITS | Continuity of Care Document ---
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 [address] [place] [address] Encounter Diagnosis Back pain(Discharge Diagnosis) - 01/20/23 Vomiting(Discharge Diagnosis) - 01/20/23 Leukocytosis(Discharge Diagnosis) - 01/20/23 Discharge Disposition: Home or Self Care Attending Physician: Angela Ramos MD Admitting Physician: Angela Ramos MD Allergies, Adverse Reactions, Alerts No Known Medication Allergies Assessment and Plan Extracted from: Title:Clinical Document Author:Aida Tejeda te:01/20/23 Diagnosis: 1. Back pain Comment: Diagnosis: 2. Vomiting Comment: Diagnosis: 3. Leukocytosis Comment: Diagnosis: Back pain Comment: Diagnosis: Vomiting Comment: Future Appointments Future Scheduled Tests Radiology* CT Chest w/o Contrast 12/07/22 Functional Status 01/20/23 Family Member Travel History No recent t [...] Recorded tetanus/diphth/pertuss (Tdap) adult/adol 08/15/12 Recorded Novel [id number], all formulation 08/24/09 Recorded zoster vaccine live 02/03/08 Recorded pneumococcal 23-polyvalent vaccine 09/19/05 Record ed tetanus-diphth toxoids (Td) adult/adol 08/13/00 Re corded 1Result Comment: VIS given: 05-21-2018 VIS published date: TIV/QIV 03/19/2015 Administered by Dilma Hamilton, Electromedical Equipment Repairer 05-21-2018 Medications !-Zofran ODT 4 mg oral tablet, disintegrating 4 mg = 1 tab, Oral, every 8 hr, PRN as needed for nausea/vomiting, # 15 tab, 0 Refill(s), 01/28/23 15:11:00 EDT, Pharmacy: [facility], 180, cm, 01/19/23 12:06:00 EDT, Height/Length [...] days, # 6 tab, 0 Refill(s), Pharmacy: [facility] Start Date: 12/29/22 Status: Ordered Sandrine Low Dose 81 mg oral delayed release tablet 162 mg = 2 tab, Oral, Daily, # 90 tab, 0 Refill(s) Start Date: 02/02/22 Status: Ordered benzonatate 200 mg oral capsule 200 mg = 1 cap, Oral, every 8 hr, PRN as needed for cough, # 30 cap, 1 Refill(s), Pharmacy: [facility] Start Date: 01/05/23 Status: Ordered enalapril 5 mg oral tablet 1 tab, Oral, Daily, # 100 tab, 2 Refill(s), Pharmacy: [facility] Start Date: 12/19/22 Status: Ordered ibuprofen 800 mg oral tablet 800 mg = 1 tab, Oral, every 8 hr, # 30 tab, 0 Refill(s), 01/28/23 15:11:00 EDT, Pharmacy: [facility], 180, cm, 01/19/23 12:06:00 EDT, Height/Length Dosing, 69.4, kg, 01/19/23 12:06:00 EDT, Weight Dosing Start Date: 01/19/23 Stop Date: 01/28/23 Status: Ordered Metoprolol Tartrate 50 mg oral tablet 1 tab, Oral, BID, # 180 tab, 3 Refill(s), Pharmacy: [facility] ([facility]) Start Date: 06/16/22 Status: Ordered nitroglycerin 0.3 mg sublingual tablet 0.3 mg = 1 tab, SL, every 5 min, PRN as needed for chest pain, not to exceed 3 doses/15 min--if pain persists, seek medical attention, # 100 tab, 0 Refill(s) Start Date: 02/02/22 Status: Ordered oxyCODONE 5 mg oral tablet See Instructions, 1 tp 2 tablets every 6 hours as needed for pain, # 40 tab, 0 Refill(s), Pharmacy:[facility], 180, cm, 01/12/23 14:31:00 EDT, Height/Length Dosing, 74.84, kg, 01/12/23 14:31:00 EDT, Weight Dosing Start Date: 01/16/23 Status: Ordered prochlorperazine 5 mg oral tablet 2.5 mg = 0.5 tab, Oral, BID, PRN nausea/vomiting, # 10 tab, 0 Refill(s), 01/31/23 13:21:00 EDT, Pharmacy: [facility], 181, cm, 01/20/23 11:12:00 EDT, Height/Length Dosing, 77, kg, 01/20/23 11:12:00 EDT, Weight Dosing Start Date: 01/20/23 Stop Date: 01/31/23 Status: Ordered Tylenol 325 mg oral capsule 650 mg = 2 cap, Oral, every 4 hr, PRN as needed for pain, # 90 cap, 0 Refill(s), 01/25/23 23:59:00 EDT, Pharmacy: [facility], 180, cm, 01/12/23 14:31:00 EDT, Height/Length Dosing, 74.84, kg, 01/12/23 14:31:00 EDT, Weight Dosing Start Date: 01/12/23 Stop Date: 01/25/23 Status: Ordered Tylenol Extra Strength 500 mg oral tablet 500 mg = 1 tab, Oral, every 4 hr, PRN as needed for pain, # 24 tab, 0 Refill(s), 01/27/23 15:11:00 EDT, Pharmacy: [facility], 180, cm, 01/19/23 12:06:00 EDT, Height/Length [...] stents x3 Results Laboratory List Name Date .Manual Differential ([facility]CTY) 01/20/23 C-Reactive Protein High Sensitivity (CRP HS) 01/20/23 CBC w/ Diff 01/20/23 Comprehensive Metabolic Panel (CMP) 01/20 Lactic Acid 01/20/23 Magnesium Level 01/20/23 NT- Pro BNP 01/20/23 Sedimentation Rate (ESR) 01/20/23 Troponin-I 01/20/23 Most recent to oldest [Reference Range]: 1 WBC [5.0-10.0 x10^3/mcL] 19.5 x10^3/mcL *HI* (01/20/23 11:14 AM) RBC [4.6-6.0 x10^6/mcL] 5.0 x10^6/mcL (01/20/23 11:14 AM) Segs Man [40-75 %] 79 % *HI* (01/20/23: AM) Lymph Man [20-50 %] 8 % *LOW* (01/20/23:14 AM) Dillon Man [2-15 %] 11 % (01/20/23 11:14 AM) Eos Man [1-6 %] 2 % (01/20/23 11:14 AM) BUN [7-18 mg/dL] 25 mg/dL *HI* (01/20/23 11:14 AM) Glucose Level [74-106 mg/dL] 146 mg/dL *HI* (01/20/23 11:14 AM) Potassium Level [3.5-5.1 mmol/L] 4.3 mmo l/L (01/20/23 11:14 AM) MCV [80.0-96.0 fL] 94.0 fL (01/20/23 11:14 AM) RBC Morph Normal (01/20/23:14 AM) AST [15-37 unit/L] 15 unit/L (01/20/23 11:14 AM) ALT [16-63 unit/L] 15 unit/L *LOW* (01/20/23 11:14 AM) MCHC [31.0-35.0 g/dL] 33.7 g/dL (01/20/23 11:14 AM) Troponin-I [0.0-76.2 pg/mL] 10.8 pg/mL (01/20/23 11:14 AM) Sodium Level [136-145 mmol/L] 135 mmol/L *LOW* (01/20/2314 AM) Hct [41.0-51.0 %] 46.9 % (01/20/23 AM) Calcium Level [8.5-10.1 mg/dL] 9.4 mg/dL (01/20/2314 AM) Albumin Level [3.4-5.0 g/dL] 3.1 g/dL *LOW* (01/20/23 AM) Protein Total [6.4-8.2 g/dL] 7.8 g/dL (01/20/2314 AM) MCH [26.0-32.0 pg] 31.7 pg (01/20/23 AM) Magnesium Level [1.8-2.4 mg/dL] 1.7 mg/d L *LOW* (01/20/23 AM) Bilirubin Total [0.2-1.0 mg/dL] 0.7 mg/d L (01/20/23 AM) Hgb [14.0-18.0 g/dL] 15.8 g/dL (01/20/2314 AM) Alk Phos [46-146 unit/L] 138 unit/L (01/20/2314 AM) Band Man [0-5 %] 0 % (01/20/23 AM) Platelets [130-450 x10^3/mcL] 339 x10^3/ mcL (01/20/2314 AM) CO2 [21-32 mmol/L] 28 mmol/L (01/20/23 AM) Lactic Acid Lvl [0.7-2.0 mmol/L] 2.0 mmo l/L (01/20/23 AM) eGFR Non-AA [>=60] 66 (01/20/23:14 AM) eGFR AA [>=60] 66 (01/20/23 AM) NT-proBNP [0-450 pg/mL] 394 pg/mL (01/20/2314 AM) Chloride Level [98-107 mmol/L] 97 mmol/L *LOW* (01/20/23 AM) RDW-CV [11.5-14.5 %] 12.2 % (01/20/23 11:14 AM) CRP High Sens [0.00-3.00 mg/L] 38.85 mg/ L *HI* (01/20/23 11:14 AM) Slide Review Man Diff (01/20/23 11:14 AM) Abs Neut Man 15.4 x10^3/mcL *NA* (01/20/23 11:14 AM) Creatinine Level [0.70-1.30 mg/dL] 1.12 mg/dL (01/20/23 11:14 AM) Baso Man [0-1 %] 0 % (01/20/23 11:14 AM) ESR, Westergren [0-20 mm/hr] 17 mm/hr (01/20/23 11:14 AM) Vital Signs Most recent to oldest [Reference Range]: 1 2 3 Temperature Temporal Artery [36-38 Deg C] 36.5 Deg C (01/20/23 10:55 AM) Peripheral Pulse Rate [60-100 bpm] 63 bpm (01/20/23 1:12 PM) 65 bpm (01/20/23 12:17 PM) 70 bpm (01/20/23 11:43 AM) Heart Rate Monitored [60-100 bpm] 62 bpm (01/20/23 1:12 PM) Respiratory Rate [12-24 br/min] 15 br/min (01/20/23 1:12 PM) 23 br/min (01/20/23 12:17 PM) 21 br/min (01/20/23 11:43 AM) Blood Pressure [90-140/60-90 mmHg] 119/59mmHg (01/20/23 1:12 PM) 120/59mmHg (01/20/23 12:17 PM) 140/62mmHg (01/20/23 11:43 AM) Mean Arterial Pressure, Cuff [65-140 mmHg] 79 mmHg (01/20/23 1:12 PM) 79 mmHg (01/20/23 12:17 PM) 88 mmHg (01/20/23 11:43 AM) Weight Dosing 77.00 kg (01/20/23 11:12 AM) Weight Estimated 77.00 kg (01/20/23 10:55 AM) Height/Length Dosing 181.000 cm (01/20/23 11:12 AM) Height/Length Estimated 181.000 cm (01/20/23 10:55 AM) Social History Social History Type Response Tobacco Former tobacco user Tobacco Use:. 1 Sex Male 1quit 1980 smoked for 25 yrs. Hospital Discharge Instructions Patient Education 01/20/2023 12:22:02 Nausea and Vomiting, Adult Nausea and Vomiting, Adult Nausea is the feeling that you have an upset stomach or that you are about to vomit. Vomiting is when stomach contents are thrown up and out of the mouth as a result of nausea. Vomiting can make you feel weak and cause you to become dehydrated. Dehydration can make you feel tired and thirsty, cause you to have a dry mouth, and decrease how often you urinate. Older adults and people with other diseases or a weak disease-fighting system (immune system) are at higher risk for dehydration. It is important to treat your nausea and vomiting as told by your health care provider. Follow these instructions at home: Watch your symptoms for any changes. Tell your health care provider about them. Follow these instructions to care for yourself at home. Eating and drinking ??? Take an oral rehydration solution (ORS). This is a drink that is sold at pharmacies and retail stores. ??? Drink clear fluids slowly and in small amounts as you are able. Clear fluids include water, icechips, low-calorie sports drinks, and fruit juice that has water added (diluted fruit juice). ??? Eat bland, weon-io-ydparw foods in small amounts as you are able. These foods include bananas, applesauce, rice, lean meats, toast, and crackers. ??? Avoid fluids that contain a lot of sugar or caffeine, such as energy drinks, sports drinks, andsoda. ??? Avoid alcohol. ??? Avoid spicy or fatty foods. General instructions ??? Take nvoj-upx-sqatutq and prescription medicines only as told by your health care provider. ??? Drink enough fluid to keep your urine pale yellow. ??? Wash your hands often using soap and water. If soap and water are not available, use hand window display designer. ??? Make sure that all people in your household wash their hands well and often. ??? Rest at home while you recover. ??? Watch your condition for any changes. ??? Breathe slowly and deeply when you feel nauseated. ??? Keep all follow-up visits as told by your health care provider. This is important. Contact a health care provider if: ??? Your symptoms get worse. ??? You have new symptoms. ??? You have a fever. ??? You cannot drink fluids without vomiting. ??? Your nausea does not go away after 2 days. ??? You feel light-headed or dizzy. ??? You have a headache. ??? You have muscle cramps. ??? You have a rash. ??? You have pain while urinating. Get help right away if: ??? You have pain in your chest, neck, arm, or jaw. ??? You feel extremely weak or you faint. ??? You have persistent vomiting. ??? You have vomit that is bright red or looks like black coffee grounds. ??? You have bloody or black stools or stools that look like tar. ??? You have a severe headache, a stiff neck, or both. ??? You have severe pain, cramping, or bloating in your abdomen. ??? You have difficulty breathing, or you are breathing very quickly. ??? Your heart is beating very quickly. ??? Your skin feels cold and clammy. ??? You feel confused. ??? You have signs of dehydration, such as: ??? Dark urine, very little urine, or no urine. ??? Cracked lips. ??? Dry mouth. ??? Sunken eyes. ??? Sleepiness. ??? Weakness. These symptoms may represent a serious problem that is an emergency. Do not wait to see if the symptoms will go away. Get medical help right away. Call your local emergency services (911 in the [place] Do not drive yourself to the hospital. Summary ??? Nausea is the feeling that you have an upset stomach or that you are about to vomit. As nausea gets worse, it can lead to vomiting. Vomiting can make you feel weak and cause you to become dehydrated. ??? Follow instructions from your health care provider about eating and drinking to prevent dehydration. ??? Take pohs-hve-cynvqvm and prescription medicines only as told by your health care provider. ??? Contact your health care provider if your symptoms get worse, or you have new symptoms. ??? Keep all follow-up visits as told by your health care provider. This is important. This information is not intended to replace advice given to you by your health care provider. Make sure you discuss any questions you have with your health care provider. Document Revised: 10/19/2021 Document Reviewed: 01/07/2019 [employer] Patient Education ?? 2021 [employer]. 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 PT states I was in here yesterday, pt is now very weak, vomiting, and 10/10 pain. PT had iv started on arrival, and MD aware of acute pain. PT given pain medications very quickly after arrival. pt crying on arrival History Of Present Illness: 82-year-old male past medical history PVD, lung mass, hyperlipidemia, hypertension,??currently in the process of being evaluated for??cancer work- up/evaluation presents??with??back pain and vomiting.??This happened yesterday and he ended up in the ER. ??Pain is located in the middle of the lumbar?? back,??9 out of 10 pain nonradiating same pain as he has been having for the last couple of weeks but??getting worse and associated with vomiting. ??He took his medication this morning??but did not help his symptoms. ??Otherwise yesterday after being discharged from the ER he was feeling quite well??ate a normal dinner and are normal for breakfast this morning.?? Denying any outright abdominal pain, does report??reduced stool output for the last 2 days.?? No fevers with this or chills. ??No urinary symptoms. ??No upper respiratory symptoms. Review of Systems: Back pain, vomiting Physical Exam Vitals & Measurements T:??36.5?C ??(Temporal Artery)?? HR:??63??(Peripheral)?? HR:??62??(Monitored)?? RR:??15?? BP:??119/59?? SpO2:??94%?? HT:??181.000??cm?? WT:??77.00??kg??(Estimated)?? Pain Score:??3?? O2 Therapy:??Room air?? General: Alert and oriented, well nourished,?No??acute distress Eye: PERRL, EOMI,?Normal?conjunctiva HENT: Normocephalic Lungs: Clear to auscultation and percussion,?Non-labored?? respiration Heart:?Normal? rate,?Regular??rhythm Abdomen: Soft, non-tender, non-distended,??no reproducible pain of the abdomen Musculoskeletal:?Normal? range of motion and strength Skin: Skin is warm, dry and pink,?No??rashes,?No??lesions Neurologic: Awake, alert and oriented X4, CN II-XII intact Psychiatric: Cooperative, appropriate mood and affect Medical Decision Makin-year-old male presents with vomiting, back pain. ??Patient is currently in the middle of??a work-up/evaluation for a lung mass that is concerning for malignancy. ??He had an MRI done??of the lumbar spine for back pain done on 12/13 that did not show??evidence of metastases but he was having persistent pain an MRI was repeated on 01/12, did show evidence of??findings concerning for metastases.?? Patient denies any??saddle paresthesias or urinary continence, no clinical evidence of cord compression at this time.?? Patient was given IV fluids, Zofran, Tylenol, morphine, Toradol for symptoms.?? Yesterday when he was in the ER, his symptoms??were treated with??this regimen and seem to be quite successful in reducing his symptoms.?? He took an oxycodone around 6 AM this morning but he is due forhis pain medication and has not taken anything since that time. ??He still states that the oxycodone does help his??pain quite a bit. ??He stated the Zofran??did not necessarily help his??nausea too much. ??He did have some vomiting this morning??prior to arrival. ??Labs were repeated and liter of IV fluids were given.?? Patient compared to yesterday still has a leukocytosis, however??it was 20 yesterday currently 19.5 and not worsening. ??Inflammatory markers remain stable with CRP the same asyesterday and ESR is normal.?? Again the ESR has high sensitivity for spinal epidural infection,??le ss likely the case despite the recent epidural procedure, and patient does not need acute imaging at this time particularly because his symptoms are also??very well controlled.?? On repeat exam he does not have any pain in his back at all. ??He continues to deny any fevers at home. ??His vitals arestable.?? I still feel that the leukocytosis is reactive in nature and may be secondary to??recent steroid injection versus vomiting??and does not necessarily reflect any acute infection. ??He had a UA done yesterday that was normal??there is no clinical evidence of cellulitis and he does not have any signs of upper respiratory infection.?? Patient feels quite well feeling much better at this time, he has a good pain regimen at home we will add an other antiemetic, was prescribed??Compazine oral??in addition to the Zofran that he was prescribed yesterday to see if this could help control his symptoms.?? He already has good follow-up with PET scan scheduled on Sunday and??in the process of obtaining a tissue diagnosis with subsequent oncology follow-up with [facility]??early this week.?? Patient knows return precautions ER. ??Discharge stable condition. Procedure No Qualifying Data Assessment/Plan 1.??Back pain??M54.9 Ordered: prochlorperazine 5 mg oral tablet, 2.5 mg = 0.5 tab, Oral, BID, PRN nausea/vomiting, # 10 tab, 0 Refill(s), 01/31/23 13:21:00 EDT, Pharmacy: [facility], 181, cm, 01/20/23 11:12:00 EDT, Height/Length Dosing, 77, kg, 01/20/23 11:12:00 EDT, Weight Dosing Discharge Patient, 01/20/23 13:19:00 EDT, Home Independently, Constant Indicator ?? 2.??Vomiting??R11.10 Ordered: prochlorperazine 5 mg oral tablet, 2.5 mg = 0.5 tab, Oral, BID, PRN nausea/vomiting, # 10 tab, 0 Refill(s), 01/31/23 13:21:00 EDT, Pharmacy: [facility], 181, cm, 01/20/23 11:12:00 EDT, Height/Length Dosing, 77, kg, 01/20/23 11:12:00 EDT, Weight Dosing Discharge Patient, 01/20/23 13:19:00 EDT, Home Independently, Constant Indicator ?? 3.??Leukocytosis??D72.829 Ordered: Tylenol Extra Strength 500 mg oral tablet, 500 mg = 1 tab, Oral, every 4 hr, PRN as needed for pain, # 24 tab, 0 Refill(s), 01/27/23 15:11:00 EDT, Pharmacy: [facility], 180, cm, 01/19/23 12:06:00 EDT, Height/Length Dosing, 69.4, kg, 01/19/23 12:06:00 EDT, Weight Dosing ibuprofen 800 mg oral tablet, 800 mg = 1 tab, Oral, every 8 hr, # 30 tab, 0 Refill(s), 01/28/23 15:11:00 EDT, Pharmacy: [facility], 180, cm, 01/19/23 12:06:00 EDT, Height/Length Dosing, 69.4, kg, 01/19/23 12:06:00 EDT, Weight Dosing !-Zofran ODT 4 mg oral tablet, disintegrating, 4 mg = 1 tab, Oral, every 8 hr, PRN as needed for nausea/vomiting, # 15 tab, 0 Refill(s), 01/28/23 15:11:00 EDT, Pharmacy: [facility], 180, cm, 01/19/23 12:06:00 EDT, Height/Length Dosing, 69.4, kg, 01/19/23 12:06:00 EDT, Weight Dosing ?? Patient Education Nausea and Vomiting, Adult Follow Up With When Contact Information Fazal Ponce DO Within [address] [place] [address]- Additional Instructions: Medication Reconciliation New Prescription prochlorperazine (prochlorperazine 5 mg oral tablet)0.5 tab Oral (given by mouth) 2 times a day as needed nausea/vomiting. Refills: 0. ?? Unchanged acetaminophen (Tylenol 325 mg oral capsule)2 [...] by mouth) every day. Refills: 2. ?? ibuprofen (ibuprofen 800 mg oral tablet)1 tab Oral (given by mouth) every 8 hours. Refills: 0. ?? metoprolol (Metoprolol Tartrate 50 [...] hours as needed for pain. Refills: 0. Problem List/Past Medical History Ongoing Atherosclerosis of coronary artery without angina pectoris Hyperplasia of prostate Hypertensive disorder Lumbar radiculopathy Lung mass Mixed hyperlipidemia Overweight Peripheral vascular disease Respiratory crackles Historical No qualifying data Procedure/Surgical History ???Colon cancer screening (11/18/2019)???Colonoscopy (05/14/2007)???Appendectomy (1963)???Angioplasty Medication Administration Given !-Zofran, 4 mg, IV Push morphine 4 mg/mL preservative-free injectable solution, 4 mg, IV Push NS bolus, 1000 mL, IV Piggyback Toradol, 15 mg, IV Push Tylenol, 1000 mg, IV Piggyback Allergies No Known Medication Allergies Social History Alcohol Never Electronic Cigarette/Vaping Electronic Cigarette Use: Never. Substance Use Never Tobacco Former tobacco user Tobacco Use:.- Comments: quit 1981 smoked for 25 yrs. Family History Bipolar disorder: Sister and Brother. CABG - Coronary artery bypass graft: Sister. Healthy adult: Mother. Myocardial infarction: Father. Family Member(s): ?? FATHER, at age: 63 Years. Cause of : Lab Results CBC and Differential?? LATEST RESULTS?? HISTORICAL RESULTS?? WBC?? 01/20/23 11:14?? 19.5 ??High?? 01/19/23?? 20.6 ??High?? RBC?? 01/20/23 11:14?? 5.0?? 01/19/23?? 5.4?? Hgb?? 01/20/23 11:14?? 15.8?? 01/19/23?? 17.1?? Hct?? 01/20/23 11:14?? 46.9?? 01/19/23?? 51.3 ??High?? MCV?? 01/20/23 11:14?? 94.0?? 01/19/23?? 94.1?? MCH?? 01/20/23 11:14?? 31.7?? 01/19/23?? 31.4?? MCHC?? 01/20/23 11:14?? 33.7?? 01/19/23?? 33.3?? RDW-CV?? 01/20/23 11:14?? 12.2?? 01/19/23?? 12.3?? Platelets?? 01/20/23 11:14?? 339?? 01/19/23?? 394?? Segs Man?? 01/20/23 11:14?? 79 ??High?? 01/19/23?? 80 ??High?? Lymph Man?? 01/20/23 11:14?? 8 ??Low?? 01/19/23?? 8 ??Low?? Dillon Man?? 01/20/23 11:14?? 11?? 01/19/23?? 9?? Eos Man?? 01/20/23 11:14?? 2?? 01/19/23?? 3?? Baso Man?? 01/20/23 11:14?? 0?? 01/19/23?? 0?? Band Man?? 01/20/23 11:14?? 0?? 01/19/23?? 0?? Abs Neut Man?? 01/20/23 11:14?? 15.4? RBC Morph?? 01/20/23 11:14?? Normal?? 01/19/23?? Normal?? Slide Review?? 01/20/23 11:14?? Man Diff?? 01/19/23?? Man Diff? Miscellaneous Hematology?? LATEST RESULTS?? HISTORICAL RESULTS?? ESR, Westergren?? 01/20/23 11:14?? 17?? 01/19/23?? 20? Routine Chemistry?? LATEST RESULTS?? HISTORICAL RESULTS?? Sodium Level?? 01/20/23 11:14?? 135 ??Low?? 01/19/23?? 134 ??Low?? Potassium Level?? 01/20/23 11:14?? 4.3?? 01/19/23?? 4.0?? Chloride Level?? 01/20/23 11:14?? 97 ??Low?? 01/19/23?? 96 ??Low?? CO2?? 01/20/23 11:14?? 28?? 01/19/23?? 28?? Alk Phos?? 01/20/23 11:14?? 138?? 01/19/23?? 152 ??High?? AST?? 01/20/23 11:14?? 15?? 01/19/23?? 16?? ALT?? 01/20/23 11:14?? 15 ??Low?? 01/19/23?? 16?? BUN?? 01/20/23 11:14?? 25 ??High?? 01/19/23?? 27 ??High?? Glucose Level?? 01/20/23 11:14?? 146 ??High?? 01/19/23?? 170 ??High?? Creatinine Level?? 01/20/23 11:14?? 1.12?? 01/19/23?? 1.20?? eGFR AA?? 01/20/23 11:14?? 66?? 01/19/23?? 61?? eGFR Non-AA?? 01/20/23 11:14?? 66?? 01/19/23?? 61?? Calcium Level?? 01/20/23 11:14?? 9.4?? 01/19/23?? 10.0?? Protein Total?? 01/20/23 11:14?? 7.8?? 01/19/23?? 8.6 ??High?? Albumin Level?? 01/20/23 11:14?? 3.1 ??Low?? 01/19/23?? 3.4?? Bilirubin Total?? 01/20/23 11:14?? 0.7?? 01/19/23?? 0.8?? Lactic Acid Lvl?? 01/20/23 11:14?? 2.0? Magnesium Level?? 01/20/23 11:14?? 1.7 ??Low?? 01/19/23?? 1.9?? CRP High Sens?? 01/20/23 11:14?? 38.85 ??High?? 01/19/23?? 37.85 ??High? Cardiac Isoenzymes?? LATEST RESULTS?? Troponin-I?? 01/20/23 11:14?? 10.8?? NT-proBNP?? 01/20/23 11:14?? 394? Electronically Signed on 01/20/23 01:22 PM Terrell Jarquin MD Emergency department Discharge instructions * Terrell Jarquin MD: PERFORM Event Display: ED Discharge Information Authored Date: [id number] HARLEENMIRNA :1940 Age:82 years Sex:Male Visit Date:01/20/2023 Primary Care Physician: Fazal Ponce DO Discharge Instructions We would like to thank you for allowing us to assist you with your healthcare needs. The following includes patient education materials and information regarding your injury/illness. Diagnosis from Today's Visit Back pain Vomiting Leukocytosis Discharge Vitals Temperature??(Temporal Artery) 97.7 ??F (36.5 ??C) Heart Rate??(Peripheral) 63 Heart Rate??(Monitored) 62 Respiratory Rate?? 15 Blood Pressure?? 119/59?? Height?? 71.26 in (181.000 cm) Weight??(Estimated) 169.78 lb (77.00 kg) Allergies No Known Medication Allergies What to Do Next You Need to Schedule the Following Appointments Follow Up with??Fazal Ponce DO When:??Within 1 month Where: [facility] [place] [address]- Upcoming Scheduled Appointments Sunday 1:15 PM EDT [...] How Much When Why Instructions Next Dose New prochlorperazine (prochlorperazine 5 mg oral tablet) 0.5 tab Oral (given by mouth) 2 times a day as needed for nausea/vomiting Back pain Vomiting Pickup at [facility] Unchanged acetaminophen (Tylenol 325 mg oral capsule) [...] Oral (given by mouth) Every day Unchanged ibuprofen (ibuprofen 800 mg oral tablet) 1 tab Oral (given by mouth) Every 8 hours Low back pain Leukocytosis Unchanged metoprolol (Metoprolol Tartrate 50 mg [...] 6 hours as needed for pain ?? Pharmacy Information [facility]: [address], [place] [phone] Education Materials Nausea and Vomiting, Adult Nausea is the feeling that you have an upset stomach or that you are about to vomit. Vomiting is when stomach contents are thrown up and out of the mouth as a result of nausea. Vomiting can make you feel weak and cause you to become dehydrated. Dehydration can make you feel tired and thirsty, cause you to have a dry mouth, and decrease how often you urinate. Older adults and people with other diseases or a weak disease-fighting system (immune system) are at higher risk for dehydration. It is important to treat your nausea and vomiting as told by your health care provider. Follow these instructions at home: Watch your symptoms for any changes. Tell your health care provider about them. Follow these instructions to care for yourself at home. Eating and drinking ? Take an oral rehydration solution (ORS). This is a drink that is sold at pharmacies and retail stores. ? Drink clear fluids slowly and in small amounts as you are able. Clear fluids include water, ice chips, low-calorie sports drinks, and fruit juice that has water added (diluted fruit juice). ? Eat bland, jdaj-ne-omvhiq foods in small amounts as you are able. These foods include bananas, applesauce, rice, lean meats, toast, and crackers. ? Avoid fluids that contain a lot of sugar or caffeine, such as energy drinks, sports drinks, and soda. ? Avoid alcohol. ? Avoid spicy or fatty foods. General instructions ? Take nbrn-inr-iehqhfk and prescription medicines only as told by your health care provider. ? Drink enough fluid to keep your urine pale yellow. ? Wash your hands often using soap and water. If soap and water are not available, use hand window display designer. ? Make sure that all people in your household wash their hands well and often. ? Rest at home while you recover. ? Watch your condition for any changes. ? Breathe slowly and deeply when you feel nauseated. ? Keep all follow-up visits as told by your health care provider. This is important. Contact a health care provider if: ? Your symptoms get worse. ? You have new symptoms. ? You have a fever. ? You cannot drink fluids without vomiting. ? Your nausea does not go away after 2 days. ? You feel light-headed or dizzy. ? You have a headache. ? You have muscle cramps. ? You have a rash. ? You have pain while urinating. Get help right away if: ? You have pain in your chest, neck, arm, or jaw. ? You feel extremely weak or you faint. ? You have persistent vomiting. ? You have vomit that is bright red or looks like black coffee grounds. ? You have bloody or black stools or stools that look like tar. ? You have a severe headache, a stiff neck, or both. ? You have severe pain, cramping, or bloating in your abdomen. ? You have difficulty breathing, or you are breathing very quickly. ? Your heart is beating very quickly. ? Your skin feels cold and clammy. ? You feel confused. ? You have signs of dehydration, such as: ? Dark urine, very little urine, or no urine. ? Cracked lips. ? Dry mouth. ? Sunken eyes. ? Sleepiness. ? Weakness. These symptoms may represent a serious problem that is an emergency. Do not wait to see if the symptoms will go away. Get medical help right away. Call your local emergency services (911 in the [place] Do not drive yourself to the hospital. Summary ? Nausea is the feeling that you have an upset stomach or that you are about to vomit. As nausea getsworse, it can lead to vomiting. Vomiting can make you feel weak and cause you to become dehydrated. ? Follow instructions from your health care provider about eating and drinking to prevent dehydration. ? Take zqgm-yjr-wizrsme and prescription medicines only as told by your health care provider. ? Contact your health care provider if your symptoms get worse, or you have new symptoms. ? Keep all follow-up visits as told by your health care provider. This is important. This information is not intended to replace advice given to you by your health care provider. Make sure you discuss any questions you have with your health care provider. Document Revised: 10/19/2021 Document Reviewed: 01/07/2019 [employer] Patient Education ?? 2021 [employer] Tests Performed Medications and Immunizations Administered Given !-Zofran, 4 mg, IV Push morphine 4 mg/mL preservative-free injectable solution, 4 mg, IV Push NS bolus, 1000 mL, IV Piggyback Toradol, 15 mg, IV Push Tylenol, 1000 mg, IV Piggyback Lab Test Name Test Result Date/Time WBC 19.5 x10^3/mcL 01/20/2023 11:14 EDT RBC 5.0 x10^6/mcL 01/20/2023 11:14 EDT Hgb 15.8 g/dL 01/20/2023 11:14 EDT Hct 46.9 % 01/20/2023 11:14 EDT MCV 94.0 fL 01/20/2023 11:14 EDT MCH 31.7 pg 01/20/2023 11:14 EDT MCHC 33.7 g/dL 01/20/2023 11:14 EDT RDW-CV 12.2 % 01/20/2023 11:14 EDT Platelets 339 x10^3/mcL 01/20/2023 11:14 EDT Segs Man 79 % 01/20/2023 11:14 EDT Lymph Man 8 % 01/20/2023 11:14 EDT Dillon Man 11 % 01/20/2023 11:14 EDT Eos Man 2 % 01/20/2023 11:14 EDT Baso Man 0 % 01/20/2023 11:14 EDT Band Man 0 % 01/20/2023 11:14 EDT Abs Neut Man 15.4 x10^3/mcL 01/20/2023 11:14 EDT RBC Morph Normal 01/20/2023 11:14 EDT Slide Review Man Diff 01/20/2023 11:14 EDT ESR, Westergren 17 mm/hr 01/20/2023 11:14 EDT Sodium Level 135 mmol/L 01/20/2023 11:14 EDT Potassium Level 4.3 mmol/L 01/20/2023 11:14 EDT Chloride Level 97 mmol/L 01/20/2023 11:14 EDT CO2 28 mmol/L 01/20/2023 11:14 EDT Alk Phos 138 unit/L 01/20/2023 11:14 EDT AST 15 unit/L 01/20/2023 11:14 EDT ALT 15 unit/L 01/20/2023 11:14 EDT BUN 25 mg/dL 01/20/2023 11:14 EDT Glucose Level 146 mg/dL 01/20/2023 11:14 EDT Creatinine Level 1.12 mg/dL 01/20/2023 11:14 EDT eGFR AA 66 01/20/2023 11:14 EDT eGFR Non-AA 66 01/20/2023 11:14 EDT Calcium Level 9.4 mg/dL 01/20/2023 11:14 EDT Protein Total 7.8 g/dL 01/20/2023 11:14 EDT Albumin Level 3.1 g/dL 01/20/2023 11:14 EDT Bilirubin Total 0.7 mg/dL 01/20/2023 11:14 EDT Lactic Acid Lvl 2.0 mmol/L 01/20/2023 11:14 EDT Magnesium Level 1.7 mg/dL 01/20/2023 11:14 EDT CRP High Sens 38.85 mg/L 01/20/2023 11:14 EDT Troponin-I 10.8 pg/mL 01/20/2023 11:14 EDT NT-proBNP 394 pg/mL 01/20/2023 11:14 EDT Patient/Structural Drafter Signature Patient Name:MIRNA CANSECO Jordi I have received this information and my questions have been answered. Patient/Structural Drafter Name: Patient/Structural Drafter Signature: Relationship to Patient: Witness Name/Signature: Date: Electronically Signed on: 01/20/2023 13:22 EDTSigned by:[facility] Emergency department Note * Mick Caban: PERFORM Event Display: ED Notes Authored Date: [id number] * Mick Caban: PERFORM Event Display: ED Notes Authored Date: [id number] Discharge summary * Aida Tejeda: PERFORM Event Display: Discharge Note Authored Date: [id number] * Aida Tejeda: PERFORM Event Display: Discharge Note Authored Date: [id number] Diagnosis: 1. Back pain Comment: Diagnosis: 2. Vomiting Comment: Diagnosis: 3. Leukocytosis Comment: Diagnosis: Back pain Comment: Diagnosis: Vomiting Comment: Electronically Signed on 01/20/23 01:38 PM Aida Tejeda Patient Care team information Care Team Personnel Name: Fazal Ponce DO Position: Physician Member Role: Informed Provider Address: Address: [address] [place], [place] [address] Name: Dougie Mary RN Position: Nurse Member Role: ED Nurse Name: Terrell Jarquin MD Position: Physician Member Role: ED Physician Address: Address: [facility] [address] [place] [address]- Care Team Related Persons Name: BRICE SCOTT Address: [address] [address] Address: Home [address] [place] [phone] Name: CHIDI CANSECO Address: [address] [id number]
--- OUTSIDE RECORDS SUMMARY | 2023-07-16 03:59 | XMS_ITS | Continuity of Care Document ---
Author Name Unknown Organization [facility] Address [address] [place] [address] Care Team Providers Care Head Bone Grinder Name Role Phone Fazal Ponce Primary Care Physician [phone] Encounter [facility] Date(s): 01/12/23 - 01/12/23 [facility] [address] [place] [address] Encounter Diagnosis Abnormal MRI, lumbar spine(Discharge Diagnosis) - 01/12/23 Lung mass(Discharge Diagnosis) - 01/12/23 Discharge Disposition: Home or Self Care Attending Physician: Faisal Caban MD Admitting Physician: Faisal Caban MD Referring Physician: Faisal Caban MD Allergies, Adverse Reactions, Alerts No Known Medication Allergies Assessment and Plan Future Appointments Future Scheduled Tests Radiology* CT Chest w/o Contrast 12/07/22 Functional Status 01/12/23 Other exposure to Infectious Disease Non e [...] Recorded tetanus/diphth/pertuss (Tdap) adult/adol 08/15/12 Recorded Novel [id number], all formulation 08/24/09 Recorded zoster vaccine live 02/03/08 Recorded pneumococcal 23-polyvalent vaccine 09/19/05 Record ed tetanus-diphth toxoids (Td) adult/adol 08/13/00 Re corded 1Result Comment: VIS given: 05-21-2018 VIS published date: TIV/QIV 03/19/2015 Administered by Dilma Hamilton, Financial Planning Analyst 05-21-2018 Medications atorvastatin 40 mg oral tablet 1 tab, Oral, Daily, # 90 tab, 3 Refill(s), Pharmacy: [facility] ([facility] Start Date: 06/25/22 Status: Ordered azithromycin 250 mg oral tablet See Instructions, 2 tabs day 1, then one tad daily x 4 more days, # 6 tab, 0 Refill(s), Pharmacy: [facility] Start Date: 12/29/22 Status: Ordered Sandrine Low Dose 81 mg oral delayed release tablet 162 mg = 2 tab, Oral, Daily, # 90 tab, 0 Refill(s) Start Date: 02/02/22 Status: Ordered benzonatate 200 mg oral capsule 200 mg = 1 cap, Oral, every 8 hr, PRN as needed for cough, # 30 cap, 1 Refill(s), Pharmacy: [facility] Start Date: 01/05/23 Status: Ordered enalapril 5 mg oral tablet 1 tab, Oral, Daily, # 100 tab, 2 Refill(s), Pharmacy: [facility] ([facility]) Start Date: 12/19/22 Status: Ordered Metoprolol Tartrate 50 mg oral tablet 1 tab, Oral, BID, # 180 tab, 3 Refill(s), Pharmacy: [facility] ([facility]) Start Date: 06/16/22 Status: Ordered naproxen 500 mg oral tablet 500 mg = 1 tab, Oral, BID, PRN as needed for pain, X 7 days, # 15 tab, 0 Refill(s), 01/19/23 19:15:00 EDT, Pharmacy: [facility], 180, cm, 01/12/23 14:31:00 EDT, Height/Length Dosing, 74.84,kg, 01/12/23 14:31:00 EDT, Weight Dosing Start Date: 01/12/23 Stop Date: 01/19/23 Status: Ordered nitroglycerin 0.3 mg sublingual tablet 0.3 mg = 1 tab, SL, every 5 min, PRN as needed for chest pain, not to exceed 3 doses/15 min--if pain persists, seek medical attention, # 100 tab, 0 Refill(s) Start Date: 02/02/22 Status: Ordered oxyCODONE 5 mg oral capsule 5 mg = 1 cap, Oral, every 6 hr, PRN as needed for pain, X 3 days, # 12 cap, 0 Refill(s), 01/15/23 19:15:00 EDT, Pharmacy: [facility], 180, cm, 01/12/23 14:31:00 EDT, Height/Length Dosing, 74.84, kg, 01/12/23 14:31:00 EDT, Weight Dosing Start Date: 01/12/23 Stop Date: 01/15/23 Status: Ordered Tylenol 325 mg oral capsule 650 mg = 2 cap, Oral, every 4 hr, PRN as needed for pain, # 90 cap, 0 Refill(s), 01/25/23 23:59:00 EDT, Pharmacy: [facility], 180, cm, 01/12/23 14:31:00 EDT, Height/Length Dosing, 74.84, kg, 01/12/23 14:31:00 EDT, Weight Dosing Start Date: 01/12/23 Stop Date: 01/25/23 Status: Ordered Problem List Condition Confirmation Course [...] stents x3 Results Laboratory List Name Date C-Reactive Protein High Sensitivity CBC w/ Diff 01/12/23 Comprehensive Metabolic Panel 01/12/23 Sedimentation Rate (ESR) 01/12/23 Urinalysis with Micro if Indicated and C ulture if Indicated 01/12/23 Automated Diff 01/12/23 Most recent to oldest [Reference Range]: 1 WBC [5.0-10.0 x10^3/mcL] 16.8 x10^3/mcL *HI* (01/12/23 3:20 PM) RBC [4.6-6.0 x10^6/mcL] 5.0 x10^6/mcL (01/12/23 3:20 PM) Neutro Auto [40.0-75.0 %] 74.4 % (01/12/23 3:20 PM) Lymph Auto [20.0-50.0 %] 11.5 % *LOW* (01/12/23 3:20 PM) [place] Auto [2.0-15.0 %] 9.6 % (01/12/23 3:20 PM) Basophil Auto [0.0-1.0 %] 0.7 % (01/12/23 3:20 PM) BUN [7-18 mg/dL] 26 mg/dL *HI* (01/12/23 3:20 PM) UA Color Yellow (01/12/23 3:20 PM) Glucose Level [74-106 mg/dL] 104 mg/dL (01/12/23 3:20 PM) Potassium Level [3.5-5.1 mmol/L] 4.1 mmo l/L (01/12/23 3:20 PM) MCV [80.0-96.0 fL] 94.4 fL (01/12/23 3:20 PM) UA Urobilinogen Normal (01/12/23 3:20 PM) UA Bili [Negative] Negative (01/12/23 3:20 PM) UA Ketones Negative (01/12/23 3:20 PM) AST [15-37 unit/L] 19 unit/L (01/12/23 3:20 PM) ALT [16-63 unit/L] 25 unit/L (01/12/23 3:20 PM) MCHC [31.0-35.0 g/dL] 33.1 g/dL (01/12/23 3:20 PM) Sodium Level [136-145 mmol/L] 139 mmol/L (01/12/23 3:20 PM) UA Leuk Est Negative (01/12/23 3:20 PM) UA Nitrite Negative (01/12/23 3:20 PM) UA Glucose [Negative] Negative (01/12/23 3:20 PM) Hct [41.0-51.0 %] 46.8 % (01/12/23 3:20 PM) Calcium Level [8.5-10.1 mg/dL] 9.4 mg/dL (01/12/23 3:20 PM) Albumin Level [3.4-5.0 g/dL] 3.6 g/dL (01/12/23 3:20 PM) Protein Total [6.4-8.2 g/dL] 8.7 g/dL *HI* (01/12/23 3:20 PM) UA Protein Negative (01/12/23 3:20 PM) MCH [26.0-32.0 pg] 31.3 pg (01/12/23 3:20 PM) Neutro Absolute 12.5 x10^3/mcL *NA* (01/12/23 3:20 PM) Bilirubin Total [0.2-1.0 mg/dL] 0.5 mg/d L (01/12/23 3:20 PM) Hgb [14.0-18.0 g/dL] 15.5 g/dL (01/12/23 3:20 PM) Alk Phos [46-146 unit/L] 134 unit/L (01/12/23 3:20 PM) UA Blood Negative (01/12/23 3:20 PM) UA Spec Grav 1.010 *NA* (01/12/23 3:20 PM) Platelets [130-450 x10^3/mcL] 395 x10^3/ mcL (01/12/23 3:20 PM) CO2 [21-32 mmol/L] 30 mmol/L (01/12/23 3:20 PM) UA pH 7.0 *NA* (01/12/23 3:20 PM) eGFR Non-AA [>=60] 86 (01/12/23 3:20 PM) eGFR AA [>=60] 86 (01/12/23 3:20 PM) UA Appear Clear (01/12/23 3:20 PM) Chloride Level [98-107 mmol/L] 99 mmol/L (01/12/23 3:20 PM) RDW-CV [11.5-14.5 %] 12.4 % (01/12/23 3:20 PM) Imm Gran Auto [0.0-0.9 %] 0.4 % (01/12/23 3:20 PM) CRP High Sens [0.00-3.00 mg/L] 7.10 mg/L *HI* (01/12/23 3:20 PM) Creatinine Level [0.70-1.30 mg/dL] 0.90 mg/dL (01/12/23 3:20 PM) Eos, Auto [1.0-6.0 %] 3.4 % (01/12/23 3:20 PM) ESR, Westergren [0-20 mm/hr] 25 mm/hr *HI* (01/12/23 3:20 PM) Vital Signs Most recent to oldest [Reference Range]: 1 2 3 Temperature Temporal Artery [36-38 Deg C] 37 Deg C (01/12/23 7:11 PM) 36.7 Deg C (01/12/23 5:17 PM) 35.9 Deg C *LOW* (01/12/23 2:26 PM) Temperature Temporal Artery (DegF) [97.3-100 Deg F] 98.6 Deg F (01/12/23 7:11 PM) 98.06 Deg F (01/12/23 5:17 PM) Peripheral Pulse Rate [60-100 bpm] 67 bpm (01/12/23 7:11 PM) 68 bpm (01/12/23 5:17 PM) 64 bpm (01/12/23 2:26 PM) Respiratory Rate [12-24 br/min] 18 br/min (01/12/23 7:11 PM) 16 br/min (01/12/23 5:17 PM) 18 br/min (01/12/23 2:26 PM) Blood Pressure [90-140/60-90 mmHg] 145/63mmHg *HI* (01/12/23 7:11 PM) 146/71mmHg *HI* (01/12/23 5:17 PM) 159/69mmHg *HI* (01/12/23 2:26 PM) Weight Dosing 74.84 kg (01/12/23 2:31 PM) Weight Estimated 74.84 kg (01/12/23 2:26 PM) Height/Length Dosing 180.000 cm (01/12/23 2:31 PM) Height/Length Estimated 180.000 cm (01/12/23 2:26 PM) Social History Social History Type Response Tobacco Former tobacco user Tobacco Use:. 1 Sex Male 1quit 1980 smoked for 25 yrs. Hospital Discharge Instructions Follow Up Care 01/12/2023 14:26:46 With:Fazal Ponce DO Address: [address] [place] [address]- When:1 to 2 days Comments:Call Sunday Physician Emergency department Note * Jordy Ybarra MD: PERFORM Event Display: ED Note Physician Authored Date: [id number] MIRNA CANSECO :1940 Age:82 years Sex:Male Visit Date:01/12/2023 Primary Care Physician: Fazal Ponce DO Basic Information Time Seen: Jordy Ybarra MD / 01/12/2023 14:40 Chief Complaint pt was here Sunday for a procedure and had an epidural. pt states that now the back pain is unbearable. no loss of bowels/urination. no CP, SOB History Of Present Illness: Is a very pleasant 82-year-old gentleman who presents today for evaluation of worsening low back pain. ??He does have history??of some spinal stenosis and chronic back pain??that he indicated had been getting worse over the last couple of months.?? He underwent a??epidural steroid injection under fluoroscopy 3 days ago??and felt like he was doing relatively well??yesterday and the day before but then this morning awoke with fairly severe??midline low back pain.?At present no radiation into his legs and he has not had any numbness, tingling, weakness. ??He denies any fevers or chills.?? He is not anticoagulated. Review of Systems: Positive for back pain and otherwise as noted in the [facility] Physical Exam Vitals & Measurements T:??37?C ??(Temporal Artery)?? HR:??67??(Peripheral)?? RR:??18?? BP:??145/63?? SpO2:??99%?? HT:??180.000??cm?? WT:??74.84??kg??(Estimated)?? Pain Score:??6?? O2 Therapy:??Room air?? Vital signs and nursing notes reviewed ?? CONSTITUTIONAL: _well appearing in appears uncomfortable secondary to??back pain SKIN: _Warm, dry, and intact without rash EYES: _extraocular movements are grossly intact, clear conjunctiva HENT: _Normocephalic, atraumatic, moist mucus membranes NECK: _no obvious swelling, normal range of motion PULMONARY: _normal chest rise and fall, lungs are clear bilaterally,??no respiratory distress or stridor CARDIOVASCULAR: _regular rate, regular rhythm,??distal extremities are warm and well perfused GASTROINTESTINAL: _nondistended GENITOURINARY: _deferred NEUROLOGIC: _normal speech, moves all extremities with equal strength and coordination MUSCULOSKELETAL: _no gross deformities, atraumatic, no significant midline tenderness to palpation,no visible ecchymosis, erythema, edema to back. Motor??(scale 0-5 or not tested = NT): ?Right?Left ?Hip flexion (L2):55?Knee extension (L3):55?Ankle dorsiflexion (L4):55?Great toe extension (L5):55?Ankle plantar flexion (S1):??55? Sensation??(scale 0-2 or not tested = NT): ?Anterior thigh (L2):?22?Medial knee (L3):?22? Medial ankle (L4):?22?Third toe dorsum (L5):?22? Lateral heel (S1):?22 PSYCHIATRIC: _normal mood and affect ? Medical Decision Making: On my initial evaluation the patient appears generally non-toxic but quite uncomfortable, they engage and answer questions appropriately, hemodynamically stable, no evidence of tachycardia, easy WOB with SpO2 saturation upper 90s to 100% on room air, afebrile by oral temperature. Neuro intact. Ddx includes epidural abscess, epidural hematoma, MSK pain, low suspicion for referred intraabdominal process given history, other. Plan for labs and MRI Procedure No Qualifying Data Reexamination/Reevaluation Labs reviewed???mild leukocytosis noted, infectious vs steroid related given recent injection. Renal function preserved, electrolytes??generally reassuring. UA normal. Crp and ESR minimally elevated ?? Received call from radiology - concern for metastatic disease L1 and L5. On chart review, CT chest from 12/2022 there is a right lung mass??suspicious for malignancy. ??The patient indicates that he was seen by pulmonology in [facility]??and his impression from the visit was that??there was lower concern for malignancy. ??He does relate that PET scan was recommended but has not been completed yet. Reviewed??above with Dr. Peralta with oncology at [facility].?? Indicates that a biopsy of the lung lesion would be ideal next step, either interventional radiology??if lesion is fairly peripheral??or pulmonology if this is something that could be achieved by bronchoscopy.?? Reviewed above with patient who has had reasonable pain control with p.o. oxycodone, NSAIDs, and Tylenol. ??Note sent to??patient's PCP to help coordinate??further outpatient work-up. ??Strict return precautions reviewed to the emergency department verbalization good understanding and agreement. ?? Medical Decision-Making: Clinical lab tests: ordered and reviewed -??Yes Tests in the radiology section of CPT??: ordered and reviewed -??Yes Tests in the medicine section of CPT??: ordered and reviewed -??Yes Review and summarize past medical records -??Yes Discuss the patient with other providers -??Yes Assessment/Plan 1.??Abnormal MRI, lumbar spine??R93.7 Ordered: Tylenol 325 mg oral capsule, 650 mg = 2 cap, Oral, every 4 hr, PRN as needed for pain, # 90 cap, 0 Refill(s), 01/25/23 23:59:00 EDT, Pharmacy: [facility], 180, cm, 01/12/23 14:31:00 EDT, Height/Length Dosing, 74.84, kg, 01/12/23 14:31:00 EDT, Weight Dosing naproxen 500 mg oral tablet, 500 mg = 1 tab, Oral, BID, PRN as needed for pain, X 7 days, # 15 tab,0 Refill(s), 01/19/23 19:15:00 EDT, Pharmacy: [facility], 180, cm, 01/12/23 14:31:00 EDT,Height/Length Dosing, 74.84, kg, 01/12/23 14:31:00 EDT, Weight Dosing oxyCODONE 5 mg oral capsule, 5 mg = 1 cap, Oral, every 6 hr, PRN as needed for pain, X 3 days, # 12cap, 0 Refill(s), 01/15/23 19:15:00 EDT, Pharmacy: [facility], 180, cm, 01/12/23 14:31:00EDT, Height/Length Dosing, 74.84, kg, 01/12/23 14:31:00 EDT, Weight Dosing Discharge Patient, 01/12/23 19:14:00 EDT, Home Independently, Constant Indicator ?? 2.??Lung mass??R91.8 Ordered: Tylenol 325 mg oral capsule, 650 mg = 2 cap, Oral, every 4 hr, PRN as needed for pain, # 90 cap, 0 Refill(s), 01/25/23 23:59:00 EDT, Pharmacy: [facility], 180, cm, 01/12/23 14:31:00 EDT, Height/Length Dosing, 74.84, kg, 01/12/23 14:31:00 EDT, Weight Dosing naproxen 500 mg oral tablet, 500 mg = 1 tab, Oral, BID, PRN as needed for pain, X 7 days, # 15 tab,0 Refill(s), 01/19/23 19:15:00 EDT, Pharmacy: [facility], 180, cm, 01/12/23 14:31:00 EDT,Height/Length Dosing, 74.84, kg, 01/12/23 14:31:00 EDT, Weight Dosing oxyCODONE 5 mg oral capsule, 5 mg = 1 cap, Oral, every 6 hr, PRN as needed for pain, X 3 days, # 12cap, 0 Refill(s), 01/15/23 19:15:00 EDT, Pharmacy: [facility], 180, cm, 01/12/23 14:31:00EDT, Height/Length Dosing, 74.84, kg, 01/12/23 14:31:00 EDT, Weight Dosing Discharge Patient, 01/12/23 19:14:00 EDT, Home Independently, Constant Indicator ?? Follow Up With When Contact Information Fazal Ponce DO Within 1 to [address] [place] [address]- Additional Instructions: Call Sunday Medication Reconciliation New Prescription acetaminophen (Tylenol 325 mg oral capsule)2 Capsules Oral (given by mouth) every 4 hours as neededas needed for pain. Refills: 0. ?? naproxen (naproxen 500 mg oral tablet)1 tab Oral (given by mouth) 2 times a day as needed as neededfor pain for 7 Days. Refills: 0. ?? oxyCODONE (oxyCODONE 5 mg oral capsule)1 Capsules Oral (given by mouth) every 6 hours as needed as needed for pain for 3 Days. Refills: 0. ?? Unchanged aspirin (Sandrine Low Dose 81 mg [...] by mouth) every day. Refills: 2. ?? metoprolol (Metoprolol Tartrate 50 mg oral tablet)1 tab Oral (given by mouth) 2 times a day. Refills: 3. ?? nitroglycerin (nitroglycerin 0.3 mg sublingual tablet)1 tab Sublingual (dissolve under the tongue) every 5 minutes as needed as needed for chest pain. not to exceed 3 doses/15 min--if pain persists, seek medical attention. ?? Discontinued meloxicam (meloxicam 15 mg oral tablet)1 tab Oral (given by mouth) every day. Refills: 1. Problem List/Past Medical History Ongoing Atherosclerosis of coronary artery without angina pectoris Hyperplasia of prostate Hypertensive disorder Lumbar radiculopathy Lung mass Mixed hyperlipidemia Overweight Peripheral vascular disease Respiratory crackles Historical No qualifying data Procedure/Surgical History ???Colon cancer screening (11/18/2019)???Colonoscopy (05/14/2007)???Appendectomy (1963)???Angioplasty Medication Administration Given morphine, 4 mg, IV Push morphine, 4 mg, IV Push oxyCODONE 5 mg oral tablet, 10 mg, Oral THP oxyCODONE-acetaminophen 5-325mg Tab, 1 EA, Oral Toradol, 15 mg, IV Push Tylenol, 1000 mg, Oral Allergies No Known Medication Allergies Social History Electronic Cigarette/Vaping Electronic Cigarette Use: Never. Tobacco Former tobacco user Tobacco Use:.- Comments: quit 1981 smoked for 25 yrs. Family History Bipolar disorder: Sister and Brother. CABG - Coronary artery bypass graft: Sister. Healthy adult: Mother. Myocardial infarction: Father. Family Member(s): ?? FATHER, at age: 63 Years. Cause of : Lab Results CBC and Differential?? LATEST RESULTS?? HISTORICAL RESULTS?? WBC?? 01/12/23 15:20?? 16.8 ??High?? 12/07/22?? 11.0 ??High?? RBC?? 01/12/23 15:20?? 5.0?? 12/07/22?? 4.4 ??Low?? Hgb?? 01/12/23 15:20?? 15.5?? 12/07/22?? 14.1?? Hct?? 01/12/23 15:20?? 46.8?? 12/07/22?? 43.3?? MCV?? 01/12/23 15:20?? 94.4?? 12/07/22?? 97.5 ??High?? MCH?? 01/12/23 15:20?? 31.3?? 12/07/22?? 31.8?? MCHC?? 01/12/23 15:20?? 33.1?? 12/07/22?? 32.6?? RDW-CV?? 01/12/23 15:20?? 12.4?? 12/07/22?? 12.5?? Platelets?? 01/12/23 15:20?? 395?? 12/07/22?? 304?? Neutro Auto?? 01/12/23 15:20?? 74.4?? 12/07/22?? 65.9?? Lymph Auto?? 01/12/23 15:20?? 11.5 ??Low?? 12/07/22?? 17.3 ??Low?? [place] Auto?? 01/12/23 15:20?? 9.6?? 12/07/22?? 11.5?? Eos, Auto?? 01/12/23 15:20?? 3.4?? 12/07/22?? 4.0?? Basophil Auto?? 01/12/23 15:20?? 0.7?? 12/07/22?? 1.0?? Imm Gran Auto?? 01/12/23 15:20?? 0.4?? 12/07/22?? 0.3?? Neutro Absolute?? 01/12/23 15:20?? 12.5?? 12/07/22?? 7.2? Miscellaneous Hematology?? LATEST RESULTS?? ESR, Westergren?? 01/12/23 15:20?? 25 ??High? Routine Chemistry?? LATEST RESULTS?? HISTORICAL RESULTS?? Sodium Level?? 01/12/23 15:20?? 139?? 12/07/22?? 141?? Potassium Level?? 01/12/23 15:20?? 4.1?? 12/07/22?? 3.8?? Chloride Level?? 01/12/23 15:20?? 99?? 12/07/22?? 103?? CO2?? 01/12/23 15:20?? 30?? 12/07/22?? 31?? Alk Phos?? 01/12/23 15:20?? 134? AST?? 01/12/23 15:20?? 19? ALT?? 01/12/23 15:20?? 25? BUN?? 01/12/23 15:20?? 26 ??High?? 12/07/22?? 20 ??High?? Glucose Level?? 01/12/23 15:20?? 104?? 12/07/22?? 91?? Creatinine Level?? 01/12/23 15:20?? 0.90?? 12/07/22?? 1.08?? eGFR AA?? 01/12/23 15:20?? 86?? 12/07/22?? 69?? eGFR Non-AA?? 01/12/23 15:20?? 86?? 12/07/22?? 69?? Calcium Level?? 01/12/23 15:20?? 9.4?? 12/07/22?? 9.0?? Protein Total?? 01/12/23 15:20?? 8.7 ??High? Albumin Level?? 01/12/23 15:20?? 3.6? Bilirubin Total?? 01/12/23 15:20?? 0.5? CRP High Sens?? 01/12/23 15:20?? 7.10 ??High?? 12/07/22?? 10.77 ??High? UA Macroscopic?? LATEST RESULTS?? UA Color?? 01/12/23 15:20?? Yellow?? UA Appear?? 01/12/23 15:20?? Clear?? UA Glucose?? 01/12/23 15:20?? Negative?? UA Bili?? 01/12/23 15:20?? Negative?? UA Ketones?? 01/12/23 15:20?? Negative?? UA Spec Grav?? 01/12/23 15:20?? 1.010?? UA Blood?? 01/12/23 15:20?? Negative?? UA pH?? 01/12/23 15:20?? 7.0?? UA Protein?? 01/12/23 15:20?? Negative?? UA Urobilinogen?? 01/12/23 15:20?? Normal?? UA Nitrite?? 01/12/23 15:20?? Negative?? UA Leuk Est?? 01/12/23 15:20?? Negative? Electronically Signed on 01/12/23 09:31 PM Jordy Ybarra MD Emergency department Discharge instructions * Jordy Ybarra MD: PERFORM Event Display: ED Discharge Information Authored Date: [id number] MIRNA CANSECO :1940 Age:82 years Sex:Male Visit Date:01/12/2023 Primary Care Physician: Fazal Ponce DO Discharge Instructions We would like to thank you for allowing us to assist you with your healthcare needs. The following includes patient education materials and information regarding your injury/illness. Diagnosis from Today's Visit Abnormal MRI, lumbar spine Lung mass Discharge Vitals Temperature??(Temporal Artery) 98.6 ??F (37 ??C) Heart Rate??(Peripheral) 67 Respiratory Rate?? 18 Blood Pressure?? 145/63?? Height?? 70.87 in (180.000 cm) Weight??(Estimated) 165.02 lb (74.84 kg) Allergies No Known Medication Allergies What to Do Next Instructions from Your Care Team Thank you for coming to the emergency department today, it has been our pleasure to??take care of you.?? As we discussed, the MRI in your back did not show??any signs of bleeding or infection after your procedure.?? The radiologist was unfortunately concerned for??2 spots on??your lumbar vertebrae??that they think may be metastatic??cancer (cancer that has spread to this area from somewhere else).?? We reviewed??your CT chest with the radiologist here who is concerned that??there may be lung cancer on the scan.?? The next step in??figuring out exactly what is going on is to have a biopsy done, ideally of the lung mass.?? We have sent a message to your primary care doctor??to help facilitatethis. ??Once the biopsy is done, you would meet with the cancer doctors to??determine the overall plan.?? You may use the prescribed medications to help with any pain??this weekend. ??Please return to the emergency department if you have any new or concerning symptoms including worsening or uncontrolled pain, fever, numbness, tingling, weakness, or if any other symptoms that concern you. You Need to Schedule the Following Appointments Follow Up with??Fazal Ponce DO When:??Within 1 to 2 days Why: Call Sunday Where: [address] [place] [address]- Upcoming Scheduled Appointments Sunday 1:15 PM EDT [...] Much When Why Instructions Next Dose New acetaminophen (Tylenol 325 mg oral capsule) 2 Capsules Oral (given by mouth) Every 4 hours as needed for as needed for pain Abnormal MRI, lumbar spine Lung mass Pickup at [facility] New naproxen (naproxen 500 mg oral tablet) 1 tab Oral (given by mouth) 2 times a day as needed for as needed for pain Abnormal MRI, lumbar spine Lung mass Duration: 7 Days Pickup at [facility] New oxyCODONE (oxyCODONE 5 mg oral capsule) 1 Capsules Oral (given by mouth) Every 6 hours as needed for as needed for pain Abnormal MRI, lumbar spine Lung mass Duration: 3 Days Pickup at [facility] Unchanged aspirin (Sandrine Low Dose 81 mg [...] Oral (given by mouth) Every day Unchanged metoprolol (Metoprolol Tartrate 50 mg oral tablet) 1 tab Oral (given by mouth) 2 times a day Unchanged nitroglycerin (nitroglycerin 0.3 mg sublingual tablet) 1 tab Sublingual (dissolve under the tongue) Every 5 minutes as needed for as needed for chest pain not to exceed 3 doses/ 15 min--if pain persists, seek medical attention ?? Pharmacy Information [facility]: [address], [place] [id number] [phone] ?? What How Much When Why Comments Stop Taking meloxicam (meloxicam 15 mg oral tablet) 1 tab Oral (given by mouth) Every day Back pain Tests Performed Medications and Immunizations Administered Given morphine, 4 mg, IV Push morphine, 4 mg, IV Push oxyCODONE 5 mg oral tablet, 10 mg, Oral Toradol, 15 mg, IV Push Tylenol, 1000 mg, Oral Lab Test Name Test Result Date/Time WBC 16.8 x10^3/mcL 01/12/2023 15:20 EDT RBC 5.0 x10^6/mcL 01/12/2023 15:20 EDT Hgb 15.5 g/dL 01/12/2023 15:20 EDT Hct 46.8 % 01/12/2023 15:20 EDT MCV 94.4 fL 01/12/2023 15:20 EDT MCH 31.3 pg 01/12/2023 15:20 EDT MCHC 33.1 g/dL 01/12/2023 15:20 EDT RDW-CV 12.4 % 01/12/2023 15:20 EDT Platelets 395 x10^3/mcL 01/12/2023 15:20 EDT Neutro Auto 74.4 % 01/12/2023 15:20 EDT Lymph Auto 11.5 % 01/12/2023 15:20 EDT [place] Auto 9.6 % 01/12/2023 15:20 EDT Eos, Auto 3.4 % 01/12/2023 15:20 EDT Basophil Auto 0.7 % 01/12/2023 15:20 EDT Imm Gran Auto 0.4 % 01/12/2023 15:20 EDT Neutro Absolute 12.5 x10^3/mcL 01/12/2023 15:20 EDT ESR, Westergren 25 mm/hr 01/12/2023 15:20 EDT Sodium Level 139 mmol/L 01/12/2023 15:20 EDT Potassium Level 4.1 mmol/L 01/12/2023 15:20 EDT Chloride Level 99 mmol/L 01/12/2023 15:20 EDT CO2 30 mmol/L 01/12/2023 15:20 EDT Alk Phos 134 unit/L 01/12/2023 15:20 EDT AST 19 unit/L 01/12/2023 15:20 EDT ALT 25 unit/L 01/12/2023 15:20 EDT BUN 26 mg/dL 01/12/2023 15:20 EDT Glucose Level 104 mg/dL 01/12/2023 15:20 EDT Creatinine Level 0.90 mg/dL 01/12/2023 15:20 EDT eGFR AA 86 01/12/2023 15:20 EDT eGFR Non-AA 86 01/12/2023 15:20 EDT Calcium Level 9.4 mg/dL 01/12/2023 15:20 EDT Protein Total 8.7 g/dL 01/12/2023 15:20 EDT Albumin Level 3.6 g/dL 01/12/2023 15:20 EDT Bilirubin Total 0.5 mg/dL 01/12/2023 15:20 EDT CRP High Sens 7.10 mg/L 01/12/2023 15:20 EDT UA Color YELLOW. 01/12/2023 15:20 EDT UA Appear CLEAR. 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 Signature: Relationship to Patient: Witness Name/Signature: Date: Electronically Signed on: 01/12/2023 19:18 EDTSigned by:[email or web address] Emergency department Note * EvangelistaJulia richteralec Tapia: PERFORM Event Display: ED Notes Authored Date: * Jolene Naidu H: PERFORM Event Display: ED Notes Authored Date: Patient Care team information Care Team Personnel Name: Fazal Ponce DO Position: Physician Member Role: Informed Provider Address: Address: [address] [address]- [place] Name: Maddy Bruner Position: Nurse Member Role: ED Nurse Name: Demetri Feldman RN Position: Nurse Member Role: Registered Nurse Name: Jordy Ybarra MD Position: Physician Member Role: ED Physician Address: Address: [address] [place] [address] [place] [address] [place] Care Team Related Persons Name: BRICE SCOTT Address: [facility] [address] [facility] [address] Address: [address] [place], [place] [id number] Name: JIMI CANSECO Address: Home [address] [phone] Address: [facility] [address] [phone] Name: CHIDI CANSECO Address: Home [address] [place] [phone]
--- OUTSIDE RECORDS SUMMARY | 2023-07-16 03:59 | XMS_ITS | Continuity of Care Document ---
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 Low back pain Comment: Diagnosis: 2. Leukocytosis Comment: Diagnosis: Pain in back Comment: Future Appointments Future Scheduled Tests Radiology* CT Chest w/o Contrast 12/07/22 Functional Status 01/19/23 Other exposure to Infectious Disease Non e [...] Recorded tetanus/diphth/pertuss (Tdap) adult/adol 08/15/12 Recorded Novel [id number], all formulation 08/24/09 Recorded zoster vaccine live 02/03/08 Recorded pneumococcal 23-polyvalent vaccine 09/19/05 Record ed tetanus-diphth toxoids (Td) adult/adol 08/13/00 Re corded 1Result Comment: VIS given: 05-21-2018 VIS published date: TIV/QIV 03/19/2015 Administered by Dilma Hamilton, Student Loan Counselor 05-21-2018 Medications !-Zofran ODT 4 mg oral tablet, disintegrating 4 mg = 1 tab, Oral, every 8 hr, PRN as needed for nausea/vomiting, # 15 tab, 0 Refill(s), 01/28/23 15:11:00 EDT, Pharmacy: [facility], 180, cm, 01/19/23 12:06:00 EDT, Height/Length [...] days, # 6 tab, 0 Refill(s), Pharmacy: [facility] Start Date: 12/29/22 Status: Ordered Sandrine Low Dose 81 mg oral delayed release tablet 162 mg = 2 tab, Oral, Daily, # 90 tab, 0 Refill(s) Start Date: 02/02/22 Status: Ordered benzonatate 200 mg oral capsule 200 mg = 1 cap, Oral, every 8 hr, PRN as needed for cough, # 30 cap, 1 Refill(s), Pharmacy: [facility] Start Date: 01/05/23 Status: Ordered enalapril 5 mg oral tablet 1 tab, Oral, Daily, # 100 tab, 2 Refill(s), Pharmacy[facility] Start Date: 12/19/22 Status: Ordered ibuprofen 800 mg oral tablet 800 mg = 1 tab, Oral, every 8 hr, # 30 tab, 0 Refill(s), 01/28/23 15:11:00 EDT, Pharmacy: [facility], 180, cm, 01/19/23 12:06:00 EDT, Height/Length Dosing, 69.4, kg, 01/19/23 12:06:00 EDT, Weight Dosing Start Date: 01/19/23 Stop Date: 01/28/23 Status: Ordered Metoprolol Tartrate 50 mg oral tablet 1 tab, Oral, BID, # 180 tab, 3 Refill(s), Pharmacy: [facility] ([facility]) Start Date: 06/16/22 Status: Ordered [...] for pain, # 40 tab, 0 Refill(s), Pharmacy:[facility], 180, cm, 01/12/23 14:31:00 EDT, Height/Length Dosing, 74.84, kg, 01/12/23 14:31:00 EDT, Weight Dosing Start Date: 01/16/23 Status: Ordered Tylenol 325 mg oral capsule 650 mg = 2 cap, Oral, every 4 hr, PRN as needed for pain, # 90 cap, 0 Refill(s), 01/25/23 23:59:00 EDT, Pharmacy: [facility], 180, cm, 01/12/23 14:31:00 EDT, Height/Length Dosing, 74.84, kg, 01/12/23 14:31:00 EDT, Weight Dosing Start Date: 01/12/23 Stop Date: 01/25/23 Status: Ordered Tylenol Extra Strength 500 mg oral tablet 500 mg = 1 tab, Oral, every 4 hr, PRN as needed for pain, # 24 tab, 0 Refill(s), 01/27/23 15:11:00 EDT, Pharmacy: [facility], 180, cm, 01/19/23 12:06:00 EDT, Height/Length [...] List Name Date C-Reactive Protein High Sensitivity (CRP HS) 01/19/23 Sedimentation Rate (ESR) 01/19/23 Urinalysis with Micro if Indicated and C ulture if Indicated 01/19/23 CBC w/ Diff 01/19/23 Comprehensive Metabolic Panel (CMP) Magnesium Level 01/19/23 .Manual Differential (NCTY) 01/19/23 Most recent to oldest [Reference Range]: 1 WBC [5.0-10.0 x10^3/mcL] 20.6 x10^3/mcL *HI* (01/19/23 12:14 PM) RBC [4.6-6.0 x10^6/mcL] 5.4 x10^6/mcL (01/19/23 12:14 PM) Segs Man [40-75 %] 80 % *HI* (01/19/23 12:14 PM) Lymph Man [20-50 %] 8 % *LOW* (01/19/23: PM) Vernon Man [2-15 %] 9 % (01/19/23: PM) Eos Man [1-6 %] 3 % (01/19/23:14 PM) BUN [7-18 mg/dL] 27 mg/dL *HI* (01/19/23: PM) UA Color Yellow (01/19/2340 PM) Glucose Level [74-106 mg/dL] 170 mg/dL *HI* (01/19/23: PM) Potassium Level [3.5-5.1 mmol/L] 4.0 mmo l/L (01/19/23 PM) MCV [80.0-96.0 fL] 94.1 fL (01/19/23 PM) UA Urobilinogen Normal (01/19/2340 PM) RBC Morph Normal (01/19/23 PM) UA Bili [Negative] Negative (01/19/23:40 PM) UA Ketones Negative (01/19/23:40 PM) AST [15-37 unit/L] 16 unit/L (01/19/23: PM) ALT [16-63 unit/L] 16 unit/L (01/19/23 PM) MCHC [31.0-35.0 g/dL] 33.3 g/dL (01/19/23 PM) Sodium Level [136-145 mmol/L] 134 mmol/L *LOW* (01/19/23: PM) UA Leuk Est Negative (01/19/23 12:40 PM) UA Nitrite Negative (01/19/23 12:40 PM) UA Glucose [Negative] Negative (01/19/23:40 PM) Hct [41.0-51.0 %] 51.3 % *HI* (01/19/23:14 PM) Calcium Level [8.5-10.1 mg/dL] 10.0 mg/d L (01/19/23:14 PM) Albumin Level [3.4-5.0 g/dL] 3.4 g/dL (01/19/23 12:14 PM) Protein Total [6.4-8.2 g/dL] 8.6 g/dL *HI* (01/19/23 12:14 PM) UA Protein Negative (01/19/23 12:40 PM) MCH [26.0-32.0 pg] 31.4 pg (01/19/23:14 PM) Magnesium Level [1.8-2.4 mg/dL] 1.9 mg/d L (01/19/23:14 PM) Bilirubin Total [0.2-1.0 mg/dL] 0.8 mg/d L (01/19/23:14 PM) Hgb [14.0-18.0 g/dL] 17.1 g/dL (01/19/23: PM) Alk Phos [46-146 unit/L] 152 unit/L *HI* (01/19/23:14 PM) UA Blood Negative (01/19/23:40 PM) Band Man [0-5 %] 0 % (01/19/23: PM) UA Spec Grav 1.010 *NA* (01/19/23:40 PM) Platelets [130-450 x10^3/mcL] 394 x10^3/ mcL (01/19/23:14 PM) CO2 [21-32 mmol/L] 28 mmol/L (01/19/23:14 PM) UA pH 7.0 *NA* (01/19/23 12:40 PM) eGFR Non-AA [>=60] 61 (01/19/23:14 PM) eGFR AA [>=60] 61 (01/19/23:14 PM) UA Appear Clear (01/19/23:40 PM) Chloride Level [98-107 mmol/L] 96 mmol/L *LOW* (01/19/23: PM) RDW-CV [11.5-14.5 %] 12.3 % (01/19/23:14 PM) CRP High Sens [0.00-3.00 mg/L] 37.85 mg/ L *HI* (01/19/23:40 PM) Slide Review Man Diff (01/19/23:14 PM) Creatinine Level [0.70-1.30 mg/dL] 1.20 mg/dL (01/19/23 12:14 PM) Baso Man [0-1 %] 0 % (01/19/23 12:14 PM) ESR, Westergren [0-20 mm/hr] 20 mm/hr (01/19/23 12:40 PM) Vital Signs Most recent to oldest [Reference Range]: 1 2 3 Temperature Temporal Artery [36-38 Deg C] 36.3 Deg C (01/19/23 3:16 PM) 36.2 Deg C (01/19/23 1:36 PM) 35.6 Deg C *LOW* (01/19/23 11:52 AM) Temperature Temporal Artery (DegF) [97.3-100 Deg F] 97.16 Deg F *LOW* (01/19/23 1:36 PM) Peripheral Pulse Rate [60-100 bpm] 61 bpm (01/19/23 3:16 PM) 61 bpm (01/19/23 2:37 PM) 66 bpm (01/19/23 1:36 PM) Heart Rate Monitored [60-100 bpm] 63 bpm (01/19/23 3:16 PM) 61 bpm (01/19/23 2:37 PM) 67 bpm (01/19/23 1:36 PM) Respiratory Rate [12-24 br/min] 26 br/min *HI* (01/19/23 3:16 PM) 21 br/min (01/19/23 2:37 PM) 23 br/min (01/19/23 1:36 PM) Blood Pressure [90-140/60-90 mmHg] 157/78mmHg *HI* (01/19/23 3:16 PM) 144/77mmHg *HI* (01/19/23 2:37 PM) 138/67mmHg (01/19/23 1:36 PM) Weight Dosing 69.40 kg (01/19/23 12:06 PM) Weight Estimated 69.40 kg (01/19/23 11:52 AM) Height/Length Dosing 180.000 cm (01/19/23 12:06 PM) Height/Length Estimated 180.000 cm (01/19/23 11:52 AM) Social History Social History Type Response Tobacco Former tobacco user Tobacco Use:. 1 Sex Male 1quit 1980 smoked for 25 yrs. Hospital Discharge Instructions Patient Education 01/19/2023 14:12:12 Acute Back Pain, Adult Acute Back Pain, Adult Acute back pain is sudden and usually short-lived. It is often caused by an injury to the muscles and tissues in the back. The injury may result from: ??? A muscle, tendon, or ligament getting overstretched or torn. Ligaments are tissues that connectbones to each other. Lifting something improperly can cause a back strain. ??? Wear and tear (degeneration) of the spinal disks. Spinal disks are circular tissue that providecushioning between the bones of the spine (vertebrae). ??? Twisting motions, such as while playing sports or doing yard work. ??? A hit to the back. ??? Arthritis. You may have a physical exam, lab tests, and imaging tests to find the cause of your pain. Acute back pain usually goes away with rest and home care. Follow these instructions at home: Managing pain, stiffness, and swelling ??? Take ufwf-rei-aaxocdw and prescription medicines only as told by your health care provider. Treatment may include medicines for pain and inflammation that are taken by mouth or applied to the skin, or muscle relaxants. ??? Your health care provider may recommend applying ice during the first 24???48 hours after your pain starts. To do this: ??? Put ice in a plastic bag. ??? Place a towel between your skin and the bag. ??? Leave the ice on for 20 minutes, 2???3 times a day. ??? Remove the ice if your skin turns bright red. This is very important. If you cannot feel pain, heat, or cold, you have a greater risk of damage to the area. ??? If directed, apply heat to the [...] to feel pain, heat, or cold. You have a greater risk of getting burned. Activity ??? Do not stay in bed. Staying in bed for more than 1???2 days can delay your recovery. ??? Sit up and stand up straight. Avoid leaning forward when you sit or hunching over when you stand. ??? If you work at a desk, sit close to it so you do not need to lean over. Keep your chin tucked in. Keep your neck drawn back, and keep your elbows bent at a 90-degree angle (right angle). ??? Sit high and close to the steering wheel when you drive. Add lower back (lumbar) support to your car seat, if needed. ??? Take short walks on even surfaces as soon as you are able. Try to increase the length of time you walk each day. ??? Do not sit, drive, or design printing machine set up operator one place for more than 30 minutes at a time. Sitting or standing for long periods of time can put stress on your back. ??? Do not drive or use heavy machinery while taking prescription pain medicine. ??? Use proper lifting techniques. When you bend and lift, use positions that put less stress on your back: ??? Bend your knees. ??? Keep the load close to your body. ??? Avoid twisting. ??? Exercise regularly as told by your health care provider. Exercising helps your back heal fasterand helps prevent back injuries by keeping muscles strong and flexible. ??? Work with a physical therapist to make a safe exercise program, as recommended by your health care provider. Do any exercises as told by your physical therapist. Lifestyle ??? Maintain a healthy weight. Extra weight puts stress on your back and makes it difficult to havegood posture. ??? Avoid activities or situations that make you feel anxious or stressed. Stress and anxiety increase muscle tension and can make back pain worse. Learn ways to manage anxiety and stress, such as through exercise. General instructions ??? Sleep on a firm mattress in a comfortable position. Try lying on your side with your knees slightly bent. If you lie on your back, put a pillow under your knees. ??? Keep your head and neck in a straight line with your spine (neutral position) when using electronic equipment like smartphones or pads. To do this: ??? Raise your smartphone or pad to look at it instead of bending your head or neck to look down. ??? Put the smartphone or pad at the level of your face while looking at the screen. ??? Follow your treatment plan as told by your health care provider. This may include: ??? Cognitive or behavioral therapy. ??? Acupuncture or massage therapy. ??? Meditation or yoga. Contact a health care provider if: ??? You have pain that is not relieved with rest or medicine. ??? You have increasing pain going down into your legs or buttocks. ??? Your pain does not improve after 2 weeks. ??? You have pain at night. ??? You lose weight without trying. ??? You have a fever or chills. ??? You develop nausea or vomiting. ??? You develop abdominal pain. Get help right away if: ??? You develop new bowel or bladder control problems. ??? You have unusual weakness or numbness in your arms or legs. ??? You feel faint. These symptoms may represent a serious problem that is an emergency. Do not wait to see if the symptoms will go away. Get medical help right away. Call your local emergency services (911 in the [place] Do not drive yourself to the hospital. Summary ??? Acute back pain is sudden and usually short-lived. ??? Use proper lifting techniques. When you bend and lift, use positions that put less stress on your back. ??? Take hfpg-oyf-jnrzqdy and prescription medicines only as told by your health care provider, andapply heat or ice as told. This information is not intended to replace advice given to you by your health care provider. Make sure you discuss any questions you have with your health care provider. Document Revised: 10/21/2021 Document Reviewed: 10/21/2021 [employer] Patient Education ?? 2021 [employer]. 01/19/2023 14:12:09 Leukocytosis Leukocytosis Leukocytosis means that a person has more white blood cells than normal. White blood cells are madein the bone marrow. Bone marrow is the spongy tissue inside bones. The main job of white blood cells is to fight infection. Having too many white blood cells is a common condition. It can develop as a result of many types of medical problems. What are the causes? Leukocytosis may be caused by various conditions. In some cases, the bone marrow is normal but is still making too many white blood cells. This can be due to: ??? Infection. ??? Injury. ??? Physical stress. ??? Emotional stress. ??? Surgery. ??? Allergic reactions. ??? Tumors that do not start in the blood or bone marrow. ??? An inherited disease. ??? Certain medicines. ??? and labor. In other cases, a person may have a bone marrow disorder that is causing the body to make too many white blood cells. Bone marrow disorders include: ??? Leukemia. This is a type of blood cancer. ??? Myeloproliferative disorders. These disorders cause blood cells to grow abnormally. What are the signs or symptoms? Often, this condition causes no symptoms. Some people may have symptoms due to the medical condition that is causing their leukocytosis. These symptoms may include: ??? Bleeding. ??? Bruising. ??? Fever. ??? Night sweats. ??? Swollen lymph nodes. ??? An enlarged spleen. ??? Repeated infections. ??? Weakness. ??? Weight loss. How is this diagnosed? This condition is diagnosed with blood tests. It is often found when blood is tested as part of a routine physical exam. You may have other tests to help determine why you have too many white blood cells. These tests may include: ??? A complete blood count (CBC). This test measures all the types of blood cells in your body. ??? Chest X-rays, urine tests, or other tests to look for signs of infection. ??? Bone marrow aspiration. For this test, a needle is put into your bone. Cells from the bone marrow are removed through the needle and examined under a microscope. ??? Other tests on the blood or bone marrow sample. ??? CT scan, bone scan, or other imaging tests. How is this treated? Usually, treatment is not needed for leukocytosis. However, if an infection, cancer, bone marrow disorder, or other serious problem is causing your leukocytosis, it will need to be treated. Treatmentmay include: ??? Regular monitoring of your white blood cell count to look for changes. ??? Antibiotic medicine if you have a bacterial infection. ??? Bone marrow transplant. This treatment replaces your diseased bone marrow with healthy cells that will grow new bone marrow. ??? Chemotherapy or biological therapies such as the use of antibodies. These treatments may be used to kill cancer cells or to decrease the number of white blood cells. Follow these instructions at home: Medicines ??? Take vkdj-lve-mgxqgxm and prescription medicines only as told by your health care provider. ??? If you were prescribed an antibiotic medicine, take it as told by your health care provider. Donot stop taking the antibiotic even if you start to feel better. Eating and drinking ??? Eat foods that are low in saturated fats and high in fiber. Eat plenty of fruits and vegetables. ??? Drink enough fluid to keep your urine pale yellow. ??? Limit your intake of caffeine and alcohol. General instructions ??? Maintain a healthy weight. Ask your health care provider what weight is best for you. ??? Do 30 minutes of exercise at least 5 times each week. Check with your health care provider before you start a new exercise routine. ??? Follow any safety precautions as told by your health care provider. This may be needed if you are at increased risk for infection or bleeding because of your condition. ??? Do not use any products that contain nicotine or tobacco, such as cigarettes, e-cigarettes, andchewing tobacco. If you need help quitting, ask your health care provider. ??? Keep all follow-up visits as told by your health care provider. This is important. Contact a health care provider if you: ??? Feel weak or more tired than usual. ??? Develop chills, a cough, or nasal congestion. ??? Have a fever. ??? Lose weight without trying. ??? Have night sweats. ??? Bruise easily. ??? Have new or worsening symptoms. Get help right away if you: ??? Bleed more than normal. ??? Have chest pain. ??? Have trouble breathing. ??? Have uncontrolled nausea or vomiting. ??? Feel dizzy or light-headed. Summary ??? Leukocytosis means that a person has more white blood cells than normal. ??? This condition often causes no symptoms. ??? This condition may be caused by various conditions. ??? If an infection, cancer, bone marrow disorder, or other serious problem is causing your leukocytosis, it will need to be treated. ??? Keep all follow-up visits as told by your health care provider. This is important. This information is not intended to replace advice given to you by your health care provider. Make sure you discuss any questions you have with your health care provider. Document Revised: 10/12/2021 Document Reviewed: 04/24/2019 [employer] Patient Education ?? 2021 [employer]. Follow Up Care 01/19/2023 11:51:57 With:Fazal Ponce DO Address: [address] [place] [address]- When:1 month Physician Emergency department Note * Terrell Jarquin MD: PERFORM Event Display: ED Note Physician Authored Date: [id number] HARLEEN MIRNA Bacon :1940 Age:82 years Sex:Male Visit Date:01/19/2023 Primary Care Physician: Fazal Ponce DO Basic Information Time Seen: Terrell Jarquin MD / 01/19/2023 11:57 Chief Complaint pt had a work up here last week for some back pain. pt was told he had CA on his back adn some spots in the lungs. pt has appointments in [facility] Sunday for a bisopsy and PET scan. back pain is gettingway worse. History Of Present Illness: 82-year-old male with past medical history??hypertension, hyperlipidemia, PVD presents with??back pain. ??Patient has been dealing with this for??over a month, as an outpatient she has had??recent diagnosis of concern about metastatic disease unknown primary cancer has a PET scan ordered on Sunday??but came in for persistent back pain despite oxycodone at home. ??Pain was 10 out of 10.?? No saddle paresthesias or urinary incontinence.?? No fevers or chills abdominal pain chest pain shortness ofbreath??dysuria hematuria or upper respiratory symptoms cough cold congestion or any other symptoms.?? Pain is located in the lower back. Review of Systems: back pain Physical Exam Vitals & Measurements T:??36.3?C ??(Temporal Artery)?? HR:??61??(Peripheral)?? HR:??63??(Monitored)?? RR:??26?? BP:??157/78?? SpO2:??96%?? HT:??180.000??cm?? WT:??69.40??kg??(Estimated)?? Pain Score:??1?? O2 Therapy:??Room air?? General: Alert and oriented, well nourished,?No??acute distress Eye: PERRL, EOMI,?Normal?conjunctiva HENT: Normocephalic Lungs: Clear to auscultation and percussion,?Non-labored?? respiration Heart:?Normal? rate,?Regular??rhythm Abdomen: Soft, non-tender, non-distended Skin: No sign erythema or skin changes in the lumbar area Neurologic: Awake, alert and oriented X4, CN II-XII intact Psychiatric: Cooperative, appropriate mood and affect Strength sensation bilateral lower extremities normal Medical Decision Makin-year-old male presents with??low back pain. ??Patient has an outpatient for the??past month or so has been??in the emergency department for evaluation of??lumbar back pain for which she presents with today.?? 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 ??On recent imaging of the chest there was concern about??lung cancer??on imaging. ??Patient doesnot yet have a tissue diagnosis.?? On last ER visit oncology was contacted, arrange for follow-up with??thoracic surgery for tissue diagnosis of??lung nodule,??and also PET scan which will be done??both done at [facility] on this upcoming Sunday.?? Patient does not have any evidence of cord compression. ??36.5, 179/75, 63, 25, 100%. ??He has a normal??bilateral lower extremity neurologic exam. ??There are no overlying skin changes of the lumbar area.?? His pain was treated with morphine, IV Tylenol, Toradol, and he was having some nausea treated with Zofran. ??On repeat exam his pain went froma 10 out of 10 to essentially a 0 and was much more comfortable.?? He states that he takes oxycodone as an outpatient and that has been helping his pain??mostly with the exception of today when his pain was intractable.?? I did prescribe him??ibuprofen and Tylenol and Zofran in addition to his already prescribed oxycodone and he does have enough of these at home for pain control and patient feels??comfortable that this??will be an appropriate pain regimen. ??Labs were repeated with WBC count increased to 20.?? His UA is normal,??no evidence of cellulitis, no abdominal pain, no upper respiratory symptoms. ??He did have a epidural injection??performed by anesthesia on??01/09, and given the increasing white count, spinal epidural abscess was considered, inflammatory markers were ordered, CRP??is??minimally to moderately elevated but ESR is normal. ??Given the sensitivity of ESR in the setting of spinal epidural abscess and given that his pain is??0 on repeat exam he is not tachycardic hasnot had any fevers, I suspect the pain is secondary to metastatic disease and not secondary to??epidural infection at this time. ??He was given strict return precautions to come back immediately withany signs of infection or fevers or worsening symptoms. ??Etiology of leukocytosis may be steroid induced.??In the meantime he has good follow-up with??oncology and thoracic surgery for tissue biopsyof the lung on Sunday and a PET scan ordered as well. ??Discharge stable condition return precautions to the ED. Procedure No Qualifying Data Assessment/Plan 1.??Low back pain??M54.50 Ordered: Tylenol Extra Strength 500 mg oral tablet, 500 mg = 1 tab, Oral, every 4 hr, PRN as needed for pain, # 24 tab, 0 Refill(s), 01/27/23 15:11:00 EDT, Pharmacy: [facility], 180, cm, 01/19/23 12:06:00 EDT, Height/Length Dosing, 69.4, kg, 01/19/23 12:06:00 EDT, Weight Dosing ibuprofen 800 mg oral tablet, 800 mg = 1 tab, Oral, every 8 hr, # 30 tab, 0 Refill(s), 01/28/23 15:11:00 EDT, Pharmacy: [facility], 180, cm, 01/19/23 12:06:00 EDT, Height/Length Dosing, 69.4, kg, 01/19/23 12:06:00 EDT, Weight Dosing !-Zofran ODT 4 mg oral tablet, disintegrating, 4 mg = 1 tab, Oral, every 8 hr, PRN as needed for nausea/vomiting, # 15 tab, 0 Refill(s), 01/28/23 15:11:00 EDT, Pharmacy: [facility], 180, cm, 01/19/23 12:06:00 EDT, Height/Length Dosing, 69.4, kg, 01/19/23 12:06:00 EDT, Weight Dosing Discharge Patient, 01/19/23 15:10:00 EDT, Home Independently, Constant Indicator ?? 2.??Leukocytosis??D72.829 Ordered: Tylenol Extra Strength 500 mg oral tablet, 500 mg = 1 tab, Oral, every 4 hr, PRN as needed for pain, # 24 tab, 0 Refill(s), 01/27/23 15:11:00 EDT, Pharmacy: [facility], 180, cm, 01/19/23 12:06:00 EDT, Height/Length Dosing, 69.4, kg, 01/19/23 12:06:00 EDT, Weight Dosing ibuprofen 800 mg oral tablet, 800 mg = 1 tab, Oral, every 8 hr, # 30 tab, 0 Refill(s), 01/28/23 15:11:00 EDT, Pharmacy: [facility], 180, cm, 01/19/23 12:06:00 EDT, Height/Length Dosing, 69.4, kg, 01/19/23 12:06:00 EDT, Weight Dosing !-Zofran ODT 4 mg oral tablet, disintegrating, 4 mg = 1 tab, Oral, every 8 hr, PRN as needed for nausea/vomiting, # 15 tab, 0 Refill(s), 01/28/23 15:11:00 EDT, Pharmacy: [id number], 180, cm, 01/19/23 12:06:00 EDT, Height/Length Dosing, 69.4, kg, 01/19/23 12:06:00 EDT, Weight Dosing Discharge Patient, 01/19/23 15:10:00 EDT, Home Independently, Constant Indicator ?? Patient Education Acute Back Pain, Adult Leukocytosis Follow Up With When Contact Information Fazal Ponce DO Within [address] [place] [address]- Additional Instructions: Medication Reconciliation New Prescription ibuprofen (ibuprofen 800 mg oral tablet)1 tab Oral (given by mouth) every 8 hours. Refills: 0. ?? ondansetron (!-Zofran ODT 4 mg oral tablet, disintegrating)1 tab Oral (given by mouth) every 8 hours as needed as needed for nausea/vomiting. Refills: 0. ?? Changed acetaminophen (Tylenol 325 mg oral capsule)2 Capsules Oral (given by mouth) every 4 hours as neededas needed for pain. Refills: 0. ?? acetaminophen (Tylenol Extra Strength 500 mg oral tablet)1 tab Oral (given by mouth) every 4 hours as needed as needed for pain. Refills: 0. ?? Unchanged aspirin (Sandrine Low [...] 2 times a day. Refills: 3. ?? naproxen (naproxen 500 mg oral tablet)1 tab Oral (given by mouth) 2 times a day as needed as neededfor pain for 7 Days. Refills: 0. ?? nitroglycerin (nitroglycerin 0.3 mg sublingual tablet)1 tab Sublingual (dissolve under the tongue) every 5 minutes as needed as needed for chest pain. not to exceed 3 doses/15 min--if pain persists, seek medical attention. ?? oxyCODONE (oxyCODONE 5 mg oral tablet)1 tp 2 tablets every 6 hours as needed for pain. Refills: 0. Problem List/Past Medical History Ongoing Atherosclerosis of coronary artery without angina pectoris Hyperplasia of prostate Hypertensive disorder Lumbar radiculopathy Lung mass Mixed hyperlipidemia Overweight Peripheral vascular disease Respiratory crackles Historical No qualifying data Procedure/Surgical History ???Colon cancer screening (11/18/2019)???Colonoscopy (05/14/2007)???Appendectomy (1963)???Angioplasty Medication Administration Given morphine 4 mg/mL preservative-free injectable solution, 4 [...] and Differential?? LATEST RESULTS?? HISTORICAL RESULTS?? WBC?? 01/19/23 12:14?? 20.6 ??High?? 01/12/23?? 16.8 ??High?? RBC?? 01/19/23 12:14?? 5.4?? 01/12/23?? 5.0?? Hgb?? 01/19/23 12:14?? 17.1?? 01/12/23?? 15.5?? Hct?? 01/19/23 12:14?? 51.3 ??High?? 01/12/23?? 46.8?? MCV?? 01/19/23 12:14?? 94.1?? 01/12/23?? 94.4?? MCH?? 01/19/23 12:14?? 31.4?? 01/12/23?? 31.3?? MCHC?? 01/19/23 12:14?? 33.3?? 01/12/23?? 33.1?? RDW-CV?? 01/19/23 12:14?? 12.3?? 01/12/23?? 12.4?? Platelets?? 01/19/23 12:14?? 394?? 01/12/23?? 395?? Segs Man?? 01/19/23 12:14?? 80 ??High? Lymph Man?? 01/19/23 12:14?? 8 ??Low? Vernon Man?? 01/19/23 12:14?? 9? Eos Man?? 01/19/23 12:14?? 3? Baso Man?? 01/19/23 12:14?? 0? Band Man?? 01/19/23 12:14?? 0? RBC Morph?? 01/19/23 12:14?? Normal? Slide Review?? 01/19/23 12:14?? Man Diff?? 12/07/22?? Not Indicated? Miscellaneous Hematology?? LATEST RESULTS?? HISTORICAL RESULTS?? ESR, Westergren?? 01/19/23 12:40?? 20?? 01/12/23?? 25 ??High? Routine Chemistry?? LATEST RESULTS?? HISTORICAL RESULTS?? Sodium Level?? 01/19/23 12:14?? 134 ??Low?? 01/12/23?? 139?? Potassium Level?? 01/19/23 12:14?? 4.0?? 01/12/23?? 4.1?? Chloride Level?? 01/19/23 12:14?? 96 ??Low?? 01/12/23?? 99?? CO2?? 01/19/23 12:14?? 28?? 01/12/23?? 30?? Alk Phos?? 01/19/23 12:14?? 152 ??High?? 01/12/23?? 134?? AST?? 01/19/23 12:14?? 16?? 01/12/23?? 19?? ALT?? 01/19/23 12:14?? 16?? 01/12/23?? 25?? BUN?? 01/19/23 12:14?? 27 ??High?? 01/12/23?? 26 ??High?? Glucose Level?? 01/19/23 12:14?? 170 ??High?? 01/12/23?? 104?? Creatinine Level?? 01/19/23 12:14?? 1.20?? 01/12/23?? 0.90?? eGFR AA?? 01/19/23 12:14?? 61?? 01/12/23?? 86?? eGFR Non-AA?? 01/19/23 12:14?? 61?? 01/12/23?? 86?? Calcium Level?? 01/19/23 12:14?? 10.0?? 01/12/23?? 9.4?? Protein Total?? 01/19/23 12:14?? 8.6 ??High?? 01/12/23?? 8.7 ??High?? Albumin Level?? 01/19/23 12:14?? 3.4?? 01/12/23?? 3.6?? Bilirubin Total?? 01/19/23 12:14?? 0.8?? 01/12/23?? 0.5?? Magnesium Level?? 01/19/23 12:14?? 1.9? CRP High Sens?? 01/19/23 12:40?? 37.85 ??High?? 01/12/23?? 7.10 ??High? UA Macroscopic?? LATEST RESULTS?? HISTORICAL RESULTS?? UA Color?? 01/19/23 12:40?? Yellow?? 01/12/23?? Yellow?? UA Appear?? 01/19/23 12:40?? Clear?? 01/12/23?? Clear?? UA Glucose?? 01/19/23 12:40?? Negative?? 01/12/23?? Negative?? UA Bili?? 01/19/23 12:40?? Negative?? 01/12/23?? Negative?? UA Ketones?? 01/19/23 12:40?? Negative?? 01/12/23?? Negative?? UA Spec Grav?? 01/19/23 12:40?? 1.010?? 01/12/23?? 1.010?? UA Blood?? 01/19/23 12:40?? Negative?? 01/12/23?? Negative?? UA pH?? 01/19/23 12:40?? 7.0?? 01/12/23?? 7.0?? UA Protein?? 01/19/23 12:40?? Negative?? 01/12/23?? Negative?? UA Urobilinogen?? 01/19/23 12:40?? Normal?? 01/12/23?? Normal?? UA Nitrite?? 01/19/23 12:40?? Negative?? 01/12/23?? Negative?? UA Leuk Est?? 01/19/23 12:40?? Negative?? 01/12/23?? Negative? Electronically Signed on 01/19/23 04:01 PM Terrell Jarquin MD Emergency department Discharge instructions * Terrell Jarquin MD: PERFORM Event Display: ED Discharge Information Authored Date: [id number] MIRNA CANSECO :1940 Age:82 years Sex:Male Visit Date:01/19/2023 Primary Care Physician: Fazal Ponce DO Discharge Instructions We would like to thank you for allowing us to assist you with your healthcare needs. The following includes patient education materials and information regarding your injury/illness. Diagnosis from Today's Visit Low back pain Leukocytosis Discharge Vitals Temperature??(Temporal Artery) 97.2 ??F (36.2 ??C) Heart Rate??(Peripheral) 61 Heart Rate??(Monitored) 61 Respiratory Rate?? 21 Blood Pressure?? 144/77?? Height?? 70.87 in (180.000 cm) Weight??(Estimated) 153.03 lb (69.40 kg) Allergies No Known Medication Allergies What to Do Next You Need to Schedule the Following Appointments Follow Up with??Fazal Ponce DO When:??Within 1 month Where: [facility] [address] [place] [address]- Upcoming Scheduled Appointments Sunday 1:15 PM EDT [...] Much When Why Instructions Next Dose New ibuprofen (ibuprofen 800 mg oral tablet) 1 tab Oral (given by mouth) Every 8 hours Low back pain Leukocytosis Pickup at [facility] New ondansetron (!-Zofran ODT 4 mg oral tablet, disintegrating) 1 tab Oral (given by mouth) Every 8 hours as needed for as needed for nausea/vomiting Low back pain Leukocytosis Pickup at [facility] Changed acetaminophen (Tylenol 325 mg oral capsule) 2 Capsules Oral (given by mouth) Every 4 hours as needed for as needed for pain Abnormal MRI, lumbar spine Lung mass Changed acetaminophen (Tylenol Extra Strength 500 mg oral tablet) 1 tab Oral (given by mouth) Every 4 hours as needed for as needed for pain Low back pain Leukocytosis Pickup at [facility] Unchanged aspirin (Sandrine Low Dose 81 [...] by mouth) 2 times a day Unchanged naproxen (naproxen 500 mg oral tablet) 1 tab Oral (given by mouth) 2 times a day as needed for as needed for pain Abnormal MRI, lumbar spine Lung mass Duration: 7 Days Unchanged nitroglycerin (nitroglycerin 0.3 mg sublingual tablet) 1 tab Sublingual (dissolve under the tongue) Every 5 minutes as needed for as needed for chest pain not to exceed 3 doses/ 15 min--if pain persists, seek medical attention ?? Unchanged oxyCODONE (oxyCODONE 5 mg oral tablet) See instructions Lung mass 1 tp 2 tablets every 6 hours as needed for pain ?? Pharmacy Information [facility]: [address], [place] [id number] [phone] Education Materials Acute Back Pain, Adult Acute back pain is sudden and usually short-lived. It is often caused by an injury to the muscles and tissues in the back. The injury may result from: ? A muscle, tendon, or ligament getting overstretched or torn. Ligaments are tissues that connect bones to each other. Lifting something improperly can cause a back strain. ? Wear and tear (degeneration) of the spinal disks. Spinal disks are circular tissue that provide cushioning between the bones of the spine (vertebrae). ? Twisting motions, such as while playing sports or doing yard work. ? A hit to the back. ? Arthritis. You may have a physical exam, lab tests, and imaging tests to find the cause of your pain. Acute back pain usually goes away with rest and home care. Follow these instructions at home: Managing pain, stiffness, and swelling ? Take seoy-sdh-qqkywhp and prescription medicines only as told by your health care provider. Treatment may include medicines for pain and inflammation that are taken by mouth or applied to the skin, or muscle relaxants. ? Your health care provider may recommend applying ice during the first 24???48 hours after your painstarts. To do this: ? Put ice in a plastic bag. ? Place a towel between your skin and the bag. ? Leave the ice on for 20 minutes, 2???3 times a day. ? Remove the ice if your skin turns bright red. This is very important. If you cannot feel pain, heat, or cold, you have a greater risk of damage to the area. ? If directed, apply heat to the [...] to feel pain, heat, or cold. You have a greater risk of getting burned. Activity ? Do not stay in bed. Staying in bed for more than 1???2 days can delay your recovery. ? Sit up and stand up straight. Avoid leaning forward when you sit or hunching over when you stand. ? If you work at a desk, sit close to it so you do not need to lean over. Keep your chin tucked in. Keep your neck drawn back, and keep your elbows bent at a 90-degree angle (right angle). ? Sit high and close to the steering wheel when you drive. Add lower back (lumbar) support to your car seat, if needed. ? Take short walks on even surfaces as soon as you are able. Try to increase the length of time you walk each day. ? Do not sit, drive, or design printing machine set up operator one place for more than 30 minutes at a time. Sitting or standing for long periods of time can put stress on your back. ? Do not drive or use heavy machinery while taking prescription pain medicine. ? Use proper lifting techniques. When you bend and lift, use positions that put less stress on your back: ? Bend your knees. ? Keep the load close to your body. ? Avoid twisting. ? Exercise regularly as told by your health care provider. Exercising helps your back heal faster andhelps prevent back injuries by keeping muscles strong and flexible. ? Work with a physical therapist to make a safe exercise program, as recommended by your health care provider. Do any exercises as told by your physical therapist. Lifestyle ? Maintain a healthy weight. Extra weight puts stress on your back and makes it difficult to have good posture. ? Avoid activities or situations that make you feel anxious or stressed. Stress and anxiety increase muscle tension and can make back pain worse. Learn ways to manage anxiety and stress, such as through exercise. General instructions ? Sleep on a firm mattress in a comfortable position. Try lying on your side with your knees slightlybent. If you lie on your back, put a pillow under your knees. ? Keep your head and neck in a straight line with your spine (neutral position) when using electronicequipment like smartphones or pads. To do this: ? Raise your smartphone or pad to look at it instead of bending your head or neck to look down. ? Put the smartphone or pad at the level of your face while looking at the screen. ? Follow your treatment plan as told by your health care provider. This may include: ? Cognitive or behavioral therapy. ? Acupuncture or massage therapy. ? Meditation or yoga. Contact a health care provider if: ? You have pain that is not relieved with rest or medicine. ? You have increasing pain going down into your legs or buttocks. ? Your pain does not improve after 2 weeks. ? You have pain at night. ? You lose weight without trying. ? You have a fever or chills. ? You develop nausea or vomiting. ? You develop abdominal pain. Get help right away if: ? You develop new bowel or bladder control problems. ? You have unusual weakness or numbness in your arms or legs. ? You feel faint. These symptoms may represent a serious problem that is an emergency. Do not wait to see if the symptoms will go away. Get medical help right away. Call your local emergency services (911 in the [place] Do not drive yourself to the hospital. Summary ? Acute back pain is sudden and usually short-lived. ? Use proper lifting techniques. When you bend and lift, use positions that put less stress on your back. ? Take bagn-tzd-raqggdk and prescription medicines only as told by your health care provider, and apply heat or ice as told. This information is not intended to replace advice given to you by your health care provider. Make sure you discuss any questions you have with your health care provider. Document Revised: 10/21/2021 Document Reviewed: 10/21/2021 [employer] Patient Education ?? 2021 [employer] Leukocytosis Leukocytosis means that a person has more white blood cells than normal. White blood cells are madein the bone marrow. Bone marrow is the spongy tissue inside bones. The main job of white blood cells is to fight infection. Having too many white blood cells is a common condition. It can develop as a result of many types of medical problems. What are the causes? Leukocytosis may be caused by various conditions. In some cases, the bone marrow is normal but is still making too many white blood cells. This can be due to: ? Infection. ? Injury. ? Physical stress. ? Emotional stress. ? Surgery. ? Allergic reactions. ? Tumors that do not start in the blood or bone marrow. ? An inherited disease. ? Certain medicines. ? and labor. In other cases, a person may have a bone marrow disorder that is causing the body to make too many white blood cells. Bone marrow disorders include: ? Leukemia. This is a type of blood cancer. ? Myeloproliferative disorders. These disorders cause blood cells to grow abnormally. What are the signs or symptoms? Often, this condition causes no symptoms. Some people may have symptoms due to the medical condition that is causing their leukocytosis. These symptoms may include: ? Bleeding. ? Bruising. ? Fever. ? Night sweats. ? Swollen lymph nodes. ? An enlarged spleen. ? Repeated infections. ? Weakness. ? Weight loss. How is this diagnosed? This condition is diagnosed with blood tests. It is often found when blood is tested as part of a routine physical exam. You may have other tests to help determine why you have too many white blood cells. These tests may include: ? A complete blood count (CBC). This test measures all the types of blood cells in your body. ? Chest X-rays, urine tests, or other tests to look for signs of infection. ? Bone marrow aspiration. For this test, a needle is put into your bone. Cells from the bone marrow are removed through the needle and examined under a microscope. ? Other tests on the blood or bone marrow sample. ? CT scan, bone scan, or other imaging tests. How is this treated? Usually, treatment is not needed for leukocytosis. However, if an infection, cancer, bone marrow disorder, or other serious problem is causing your leukocytosis, it will need to be treated. Treatmentmay include: ? Regular monitoring of your white blood cell count to look for changes. ? Antibiotic medicine if you have a bacterial infection. ? Bone marrow transplant. This treatment replaces your diseased bone marrow with healthy cells that will grow new bone marrow. ? Chemotherapy or biological therapies such as the use of antibodies. These treatments may be used tokill cancer cells or to decrease the number of white blood cells. Follow these instructions at home: Medicines ? Take nikz-blc-xmatlbn and prescription medicines only as told by your health care provider. ? If you were prescribed an antibiotic medicine, take it as told by your health care provider. Do notstop taking the antibiotic even if you start to feel better. Eating and drinking ? Eat foods that are low in saturated fats and high in fiber. Eat plenty of fruits and vegetables. ? Drink enough fluid to keep your urine pale yellow. ? Limit your intake of caffeine and alcohol. General instructions ? Maintain a healthy weight. Ask your health care provider what weight is best for you. ? Do 30 minutes of exercise at least 5 times each week. Check with your health care provider before you start a new exercise routine. ? Follow any safety precautions as told by your health care provider. This may be needed if you are at increased risk for infection or bleeding because of your condition. ? Do not use any products that contain nicotine or tobacco, such as cigarettes, e- cigarettes, and chewing tobacco. If you need help quitting, ask your health care provider. ? Keep all follow-up visits as told by your health care provider. This is important. Contact a health care provider if you: ? Feel weak or more tired than usual. ? Develop chills, a cough, or nasal congestion. ? Have a fever. ? Lose weight without trying. ? Have night sweats. ? Bruise easily. ? Have new or worsening symptoms. Get help right away if you: ? Bleed more than normal. ? Have chest pain. ? Have trouble breathing. ? Have uncontrolled nausea or vomiting. ? Feel dizzy or light-headed. Summary ? Leukocytosis means that a person has more white blood cells than normal. ? This condition often causes no symptoms. ? This condition may be caused by various conditions. ? If an infection, cancer, bone marrow disorder, or other serious problem is causing your leukocytosis, it will need to be treated. ? Keep all follow-up visits as told by your health care provider. This is important. This information is not intended to replace advice given to you by your health care provider. Make sure you discuss any questions you have with your health care provider. Document Revised: 10/12/2021 Document Reviewed: 04/24/2019 [employer] Patient Education ?? 2021 [employer] Tests Performed Medications and Immunizations Administered Given morphine 4 mg/mL preservative-free injectable solution, 4 mg, IV Push NS bolus, 1000 mL, IV Piggyback Toradol, 15 mg, IV Push Tylenol, 1000 mg, IV Piggyback Lab Test Name Test Result Date/Time WBC 20.6 x10^3/mcL 01/19/2023 12:14 EDT RBC 5.4 x10^6/mcL 01/19/2023 12:14 EDT Hgb 17.1 g/dL 01/19/2023 12:14 EDT Hct 51.3 % 01/19/2023 12:14 EDT MCV 94.1 fL 01/19/2023 12:14 EDT MCH 31.4 pg 01/19/2023 12:14 EDT MCHC 33.3 g/dL 01/19/2023 12:14 EDT RDW-CV 12.3 % 01/19/2023 12:14 EDT Platelets 394 x10^3/mcL 01/19/2023 12:14 EDT Segs Man 80 % 01/19/2023 12:14 EDT Lymph Man 8 % 01/19/2023 12:14 EDT Vernon Man 9 % 01/19/2023 12:14 EDT Eos Man 3 % 01/19/2023 12:14 EDT Baso Man 0 % 01/19/2023 12:14 EDT Band Man 0 % 01/19/2023 12:14 EDT RBC Morph Normal 01/19/2023 12:14 EDT Slide Review Man Diff 01/19/2023 12:14 EDT ESR, Westergren 20 mm/hr 01/19/2023 12:40 EDT Sodium Level 134 mmol/L 01/19/2023 12:14 EDT Potassium Level 4.0 mmol/L 01/19/2023 12:14 EDT Chloride Level 96 mmol/L 01/19/2023 12:14 EDT CO2 28 mmol/L 01/19/2023 12:14 EDT Alk Phos 152 unit/L 01/19/2023 12:14 EDT AST 16 unit/L 01/19/2023 12:14 EDT ALT 16 unit/L 01/19/2023 12:14 EDT BUN 27 mg/dL 01/19/2023 12:14 EDT Glucose Level 170 mg/dL 01/19/2023 12:14 EDT Creatinine Level 1.20 mg/dL 01/19/2023 12:14 EDT eGFR AA 61 01/19/2023 12:14 EDT eGFR Non-AA 61 01/19/2023 12:14 EDT Calcium Level 10.0 mg/dL 01/19/2023 12:14 EDT Protein Total 8.6 g/dL 01/19/2023 12:14 EDT Albumin Level 3.4 g/dL 01/19/2023 12:14 EDT Bilirubin Total 0.8 mg/dL 01/19/2023 12:14 EDT Magnesium Level 1.9 mg/dL 01/19/2023 12:14 EDT CRP High Sens 37.85 mg/L 01/19/2023 12:40 EDT UA Color YELLOW. 01/19/2023 12:40 EDT UA Appear CLEAR. 01/19/2023 12:40 EDT UA Glucose NEGATIVE 01/19/2023 12:40 EDT UA Bili NEGATIVE 01/19/2023 12:40 EDT UA Ketones NEGATIVE 01/19/2023 12:40 EDT UA Spec Grav 1.010 01/19/2023 12:40 EDT UA Blood NEGATIVE 01/19/2023 12:40 EDT UA pH 7.0 01/19/2023 12:40 EDT UA Protein NEGATIVE 01/19/2023 12:40 EDT UA Urobilinogen 0.2 Uro 01/19/2023 12:40 EDT UA Nitrite NEGATIVE 01/19/2023 12:40 EDT UA Leuk Est NEGATIVE 01/19/2023 12:40 EDT Patient/Special Needs Caregiver Signature Patient Name:MIRNA CANSECO Jordi I have received this information and my questions have been answered. Patient/Special Needs Caregiver Name: Patient/Special Needs Caregiver Signature: Relationship to Patient: Witness Name/Signature: Date: Electronically Signed on: 01/19/2023 15:12 EDTSigned by:TRM Discharge summary * Aida Tejeda: PERFORM Event Display: Discharge Note Authored Date: * Aida Tejeda: PERFORM Event Display: Discharge Note Authored Date: Diagnosis: 1. Low back pain Comment: Diagnosis: 2. Leukocytosis Comment: Diagnosis: Pain in back Comment: Electronically Signed on 01/19/23 03:47 PM Aida Tejeda Patient Care team information Care Team Personnel Name: Fazal Ponce DO Position: Physician Member Role: Informed Provider Address: Address: [id number] [place] [address] Name: Maddy Bruner Position: Nurse Member Role: ED Nurse Name: Terrell Jarquin MD Position: Physician Member Role: ED Physician Address: Address: [id number] [place] [address] Care Team Related Persons Name: BRICE SCOTT Address: [place] [address] [place] [id number] Address: Home [address] [place] [phone] Name: CHIDI CANSECO Address: Home [address] [place] [phone]
--- OUTSIDE RECORDS SUMMARY | 2023-07-16 03:59 | XMS_ITS | Continuity of Care Document ---
Author Name Unknown Organization [facility] Address [address] [place] [address] Care Team Providers Care Inspecting Machine Adjuster Name Role Phone Fazal Ponce Primary Care Physician Encounter [facility] Date(s): 05/01/23 - 05/01/[address] [address] Discharge Disposition: Home or Self Care Attending Physician: Betty Mercado APRN Admitting Physician: Betty Mercado APRN Referring Physician: Betty Mercado APRN Allergies, Adverse Reactions, [...] Recorded tetanus/diphth/pertuss (Tdap) adult/adol 08/15/12 Recorded Novel [id number], all formulation 08/24/09 Recorded zoster vaccine live 02/03/08 Recorded pneumococcal 23-polyvalent vaccine 09/19/05 Record ed tetanus-diphth toxoids (Td) adult/adol 08/13/00 Re corded 1Result Comment: VIS given: 05-21-2018 VIS published date: TIV/QIV 03/19/2015 Administered by Dilma Hamilton, Leno Sewer 05-21-2018 Medications atorvastatin 40 mg oral tablet 1 tab, Oral, Daily, # 100 tab, 2 Refill(s), Pharmacy: [facility] ([facility]), 181, cm, 03/08/23 12:27:00 EDT, Height/Length Dosing, 61, kg, 03/08/23 12:27:00 EDT, Weight Dosing Start Date: 03/26/23 Status: Ordered Sandrine Low Dose 81 mg oral delayed release tablet 162 mg = 2 tab, Oral, Daily, # 90 tab, 0 Refill(s) Start Date: 02/02/22 Status: Ordered Eliquis 5 mg oral tablet 5 mg = 1 tab, Oral, BID, # 60 tab, 5 Refill(s), Pharmacy: [facility] ([facility]), 181, cm, 03/08/23 12:27:00 EDT, Height/Length Dosing, 61, kg, 03/08/23 12:27:00 EDT, Weight Dosing Start Date: 04/25/23 Status: Ordered gabapentin 300 mg oral capsule 300 mg = 1 cap, Oral, TID, # 90 cap, 1 Refill(s), Pharmacy: [facility], 181, cm, 03/08/2312:27:00 EDT, Height/Length Dosing, 61, kg, 03/08/23 12:27:00 EDT, Weight Dosing Start Date: 03/20/23 Status: Ordered HYDROmorphone 2 mg oral tablet 2 mg = 1 tab, Oral, every 6 hr, PRN as needed for pain, # 84 tab, 0 Refill(s), Pharmacy: [facility], 181, cm, 03/08/23 12:27:00 EDT, Height/Length Dosing, 61, kg, 03/08/23 12:27:00 EDT, Weight Dosing Start Date: 04/18/23 Status: Ordered Metoprolol Tartrate 50 mg oral tablet See Instructions, 1 tablet in the am (50mg) and 2 tablets in the pm (100mg), # 90 tab, 3 Refill(s),Pharmacy: [facility] ([facility]), 181, cm, 03/08/23 12:27:00 EDT, Height/LengthDosing, 61, kg, 03/08/23 12:27:00 EDT, Weight Dosing Start Date: 04/25/23 Status: Ordered mirtazapine 15 mg oral tablet 15 mg = 1 tab, Oral, every day at bedtime, # 30 tab, 2 Refill(s), Pharmacy: [facility], 180, cm, 01/24/23 3:46:00 EDT, Height/Length [...] QID, # 30 mL, 1 Refill(s), Pharmacy: [facility], 180, cm, 01/24/23 3:46:00 EDT, Height/Length [...] malnutrition in the setting of chronic illness (Kevin, JPEN J Parenteral Enteral Nutr. 2011; 36(3): 273-83) Procedures Procedure Date Related Diagnosis [...] Member Role: Primary Care Physician Address: Address: [facility] [address] [facility] [place] [address]- Care Team Related Persons Name: BRICE SCOTT Address: Alternate [address] [place] [phone] Address: Home [address] [place] [phone] Name: VIKTOR WHITE Address: Alternate [address] [facility], [id number] Address: Home [address] [facility], [phone] Name: JIMI CANSECO Name: CHIDI CANSECO Address: Home [address] [facility], [place] [id number]
--- OUTSIDE RECORDS SUMMARY | 2023-07-16 03:59 | XMS_ITS | Continuity of Care Document ---
Author Name Unknown Organization [facility] Address [address] [place] [address] Care Team Providers Care Proposal Rep Name Role Phone Fazal Ponce Primary Care Physician Encounter [facility] Date(s): 01/09/23 - 01/09/23 [facility] [address] [place] [address] Encounter Diagnosis Spinal stenosis, lumbosacral region(Final) - Discharge Disposition: Home or Self Care Attending Physician: Shady Gao MD Admitting Physician: Shady Gao MD Referring Physician: Fazal Ponce DO Allergies, Adverse [...] Recorded tetanus/diphth/pertuss (Tdap) adult/adol 08/15/12 Recorded Novel [id number], all formulation 08/24/09 Recorded zoster vaccine live 02/03/08 Recorded pneumococcal 23-polyvalent vaccine 09/19/05 Record ed tetanus-diphth toxoids (Td) adult/adol 08/13/00 Re corded 1Result Comment: VIS given: 05-21-2018 VIS published date: TIV/QIV 03/19/2015 Administered by Dilma Hamilton, Customer Insight Analyst 05-21-2018 Medications atorvastatin 40 mg oral tablet 1 tab, Oral, Daily, # 90 tab, 3 Refill(s), Pharmacy: [facility] ([facility]) Start Date: 06/25/22 Status: Ordered azithromycin 250 mg oral tablet See Instructions, 2 tabs day 1, then one tad daily x 4 more days, # 6 tab, 0 Refill(s), Pharmacy: [facility] Start Date: 12/29/22 Status: Ordered Sandrine Low Dose 81 mg oral delayed release tablet 162 mg = 2 tab, Oral, Daily, # 90 tab, 0 Refill(s) Start Date: 02/02/22 Status: Ordered benzonatate 200 mg oral capsule 200 mg = 1 cap, Oral, every 8 hr, PRN as needed for cough, # 30 cap, 1 Refill(s), Pharmacy: [facility] Start Date: 01/05/23 Status: Ordered enalapril 5 mg oral tablet 1 tab, Oral, Daily, # 100 tab, 2 Refill(s), Pharmacy: [facility] ([facility]) Start Date: 12/19/22 Status: Ordered meloxicam 15 mg oral tablet 15 mg = 1 tab, Oral, Daily, # 30 tab, 1 Refill(s), Pharmacy: [facility] Start Date: 12/12/22 Status: Ordered Metoprolol Tartrate 50 mg oral tablet 1 tab, Oral, BID, # 180 tab, 3 Refill(s), Pharmacy: [facility] ([facility]) Start Date: 06/16/22 Status: Ordered [...] recent to oldest [Reference Range]: 1 2 Temperature Temporal Artery [36-38 Deg C ] 36.4 Deg C (01/09/23 11:35 AM) 36 Deg C (01/09/23 11:08 AM) Peripheral Pulse Rate [60-100 bpm] 66 bp m (01/09/23 11:35 AM) 58 bpm *LOW* (01/09/23 11:08 AM) Respiratory Rate [12-24 br/min] 19 br/mi n (01/09/23 11:35 AM) 16 br/min (01/09/23 11:08 AM) Blood Pressure [90-140/60-90 mmHg] 145/6 7mmHg *HI* (01/09/23 11:35 AM) Mean Arterial Pressure Cuff 85 mmHg (01/09/23 11:08 AM) Blood Pressure Location Right arm (01/09/23 11:08 AM) Social History Social History Type Response Tobacco Former tobacco user Tobacco Use:. 1 Sex Male 1q1980 smoked for 25 yrs. Anesthesiology Progress note * Shady Gao MD: PERFORM Event Display: Anesthesiology Progress Note Authored Date: [id number] MIRNA CANSECO :1940 Age:82 years Sex:Male Visit Date:01/09/2023 Primary Care Physician: Lagoy, Fazal Peterson DO L5 S1 epidural steroid injection for spinal stenosis Images After the risk benefits and limitations of the procedure explained the patient excepted these he was taken back to the OR placed in prone position sterile prep and drape of his back in usual fashion??the L5-S1 interspace was then defined using fluoroscopy in AP views the skin and deeper tissues overlying this were anesthetized with 1% lidocaine. ??An 18-gauge Touhy needle was advanced using fluoroscopic guidance down to the epidural space once the epidural space was contacted confirmed with [id number] normal saline??80 mg Depo-Medrol and 5 cc of preservative-free normal saline were injected slowly with minimal minimal amount of discomfort??once injection was completed the needle was removed??to try clear pressure held for a few moments??sterile dressing placed patient was taken back to recovery stable condition he will call the OR if he has any difficulties. Electronically Signed on 01/09/23 11:34 AM Shady Gao MD Patient Care team information Care Team Personnel Name: Fazal Ponce DO Position: Physician Member Role: Primary Care Physician Address: Address: [address] [address]- Care Team Related Persons Name: BRICE SCOTT Address: [place] [address] Address: Home [address] [place] [phone] Name: JIMI CANSECO Address: Home [address] [place], [place] [id number] Address: Mailing [address] [place] [phone] Name: CHIDI CANSECO Address: Home [address] [place] [phone]
--- OUTSIDE RECORDS SUMMARY | 2023-07-16 03:59 | XMS_ITS | Continuity of Care Document ---
Author Name Unknown Organization [facility] Address [address] [place] [address] Care Team Providers Care Certified Novell Administrator Name Role Phone Fazal Ponce Primary Care Physician [phone] Encounter [facility] Date(s): 07/13/23 - 07/13/[address] [address] Discharge Disposition: Home or Self Care Attending Physician: Pemyan Abdul MD Admitting Physician: Peyman Abdul MD Referring Physician: Peyman Abdul MD Allergies, Adverse Reactions, Alerts No Known [...] Recorded tetanus/diphth/pertuss (Tdap) adult/adol 08/15/12 Recorded Novel [id number], all formulation 08/24/09 Recorded zoster vaccine live 02/03/08 Recorded pneumococcal 23-polyvalent vaccine 09/19/05 Record ed tetanus-diphth toxoids (Td) adult/adol 08/13/00 Re corded 1Result Comment: VIS given: 05-21-2018 VIS published date: TIV/QIV 03/19/2015 Administered by Dilma Hamilton, Regional Director Of Finance 05-21-2018 Medications atorvastatin 40 mg oral tablet 1 tab, Oral, Daily, # 100 tab, 2 Refill(s), Pharmacy: [facility] ([facility]), 181, cm, 03/08/23 12:27:00 EDT, Height/Length Dosing, 61, kg, 03/08/23 12:27:00 EDT, Weight Dosing Start Date: 03/26/23 Status: Ordered Sandrine Low Dose 81 mg oral delayed release tablet 162 mg = 2 tab, Oral, Daily, # 90 tab, 0 Refill(s) Start Date: 02/02/22 Status: Ordered buprenorphine 20 mcg/hr transdermal film, extended release 1 patches, Topical, every week, # 5 patches, 0 Refill(s), Pharmacy: [facility], 181, cm, 03/08/23 12:27:00 EDT, Height/Length Dosing, 61, kg, 03/08/23 12:27:00 EDT, Weight Dosing Start Date: 05/24/23 Status: Ordered Eliquis 5 mg oral tablet 5 mg = 1 tab, Oral, BID, # 60 tab, 5 Refill(s), Pharmacy: [facility] ([facility]), 181, cm, 03/08/23 12:27:00 EDT, Height/Length Dosing, 61, kg, 03/08/23 12:27:00 EDT, Weight Dosing Start Date: 04/25/23 Status: Ordered gabapentin 300 mg oral capsule 300 mg = 1 cap, Oral, TID, # 270 cap, 1 Refill(s), Pharmacy: [facility], 181, cm, 03/08/2312:27:00 EDT, Height/Length Dosing, 61, kg, 03/08/23 12:27:00 EDT, Weight Dosing Start Date: 06/12/23 Status: Ordered HYDROmorphone 2 mg oral tablet 2 mg = 1 tab, Oral, every 6 hr, # 100 tab, 0 Refill(s), other reason (Rx) Start Date: 07/03/23 Status: Ordered Metoprolol Tartrate 50 mg oral tablet See Instructions, TAKE 1 TABLET BY MOUTH IN THE MORNING AND 2 TABLETS IN THE EVENING, # 300 tab, 2 Refill(s), Pharmacy: [facility], 181, cm, 03/08/23 12:27:00 EDT, Height/Length Dosing, 61, kg, 03/08/23 12:27:00 EDT, Weight Dosing Start Date: 07/02/23 Status: Ordered mirtazapine 15 mg oral tablet 15 mg = 1 tab, Oral, every day at bedtime, # 30 tab, 2 Refill(s), Pharmacy: [facility], 180, cm, 01/24/23 3:46:00 EDT, Height/Length [...] QID, # 30 mL, 1 Refill(s), Pharmacy: [facility], 180, cm, 01/24/23 3:46:00 EDT, Height/Length [...] 01/31/23 Active Myocardial infarction Confirmed 02/04/23 Active Peripheral vascular disease Confirmed 10/28/20 Active [...] illness (Kevin, JPEN J Parenteral Enteral Nutr. 2012 December; [...] Member Role: Primary Care Physician Address: Address: [facility] [address] [facility] [address]- Care Team Related Persons Name: BRICE SCOTT Address: Alternate [address] [place] [phone] Address: Home [address] [place] [address], [phone] Name: VIKTOR WHITE Address: Alternate [address] [facility], [id number] Address: Home [address] [facility], [phone] Name: JIMI CANSECO Name: CHIDI CANSECO Address: [address], [place] [phone]
--- OUTSIDE RECORDS SUMMARY | 2023-07-16 03:59 | XMS_ITS | Continuity of Care Document ---
Author Name Unknown Organization [facility] Address [address] [place] [address] Care Team Providers Care Spot Sprayer Name Role Phone Fazal Ponce Primary Care Physician Encounter [facility] Date(s): 01/09/23 - 01/09/23 [facility] [address] [place] [address] Discharge Disposition: Home or Self Care Attending Physician: Geeta Washington MD Admitting Physician: Geeta Washington MD Referring Physician: Geeta Washington MD Allergies, Adverse Reactions, Alerts No Known [...] Recorded tetanus/diphth/pertuss (Tdap) adult/adol 08/15/12 Recorded Novel [id number], all formulation 08/24/09 Recorded zoster vaccine live 02/03/08 Recorded pneumococcal 23-polyvalent vaccine 09/19/05 Record ed tetanus-diphth toxoids (Td) adult/adol 08/13/00 Re corded 1Result Comment: VIS given: 05-21-2018 VIS published date: TIV/QIV 03/19/2015 Administered by Dilma Hamilton, Assembly Cleaner 05-21-2018 Medications atorvastatin 40 mg oral tablet 1 tab, Oral, Daily, # 90 tab, 3 Refill(s), Pharmacy: [facility] ([facility]) Start Date: 06/25/22 Status: Ordered azithromycin 250 mg oral tablet See Instructions, 2 tabs day 1, then one tad daily x 4 more days, # 6 tab, 0 Refill(s), Pharmacy: [facility] Start Date: 12/29/22 Status: Ordered Sandrine Low Dose 81 mg oral delayed release tablet 162 mg = 2 tab, Oral, Daily, # 90 tab, 0 Refill(s) Start Date: 02/02/22 Status: Ordered benzonatate 200 mg oral capsule 200 mg = 1 cap, Oral, every 8 hr, PRN as needed for cough, # 30 cap, 1 Refill(s), Pharmacy: [facility] Start Date: 01/05/23 Status: Ordered enalapril 5 mg oral tablet 1 tab, Oral, Daily, # 100 tab, 2 Refill(s), Pharmacy: [facility] ([facility]) Start Date: 12/19/22 Status: Ordered meloxicam 15 mg oral tablet 15 mg = 1 tab, Oral, Daily, # 30 tab, 1 Refill(s), Pharmacy: [facility] Start Date: 12/12/22 Status: Ordered Metoprolol [...] Member Role: Primary Care Physician Address: Address: [facility] [address] [facility] [place] [address]- Care Team Related Persons Name: BRICE SCOTT Address: [place] [address] [place] [address] Address: Home [facility] [place], [place] [phone] Name: JIMI CANSECO Address: Home [address] [phone] Address: Mailing [address] [place] [phone] Name: CHIDI CANSECO Address: Home [address] [place], [place] [phone]
--- OUTSIDE RECORDS SUMMARY | 2023-07-16 03:59 | XMS_ITS | Continuity of Care Document ---
Author Name Unknown Organization [facility] Address [address] [place] [address] Care Team Providers Care Medical Program Specialist Name Role Phone Fazal Ponce Primary Care Physician [phone] Encounter NCTY_NM Date(s): 03/08/23 - 03/08/23 [facility] [address] [place] [address] Encounter Diagnosis Thrush(Discharge Diagnosis) - 03/08/23 Pneumonia(Discharge Diagnosis) - 03/08/23 Weakness(Discharge Diagnosis) - 03/08/23 Discharge Disposition: Home or Self Care Attending Physician: Angela Ramos MD Admitting Physician: Angela Ramos MD Allergies, Adverse Reactions, Alerts No Known Medication Allergies Assessment and Plan Extracted from: Title:Clinical Document Author:Mick Caban Date:03/08/23 Diagnosis: 1. Thrush Comment: Diagnosis: 2. Pneumonia Comment: Diagnosis: 3. Weakness Comment: Diagnosis: Weakness Comment: Future Appointments Future Scheduled Tests Radiology* CT Chest w/o Contrast 12/07/22 Functional Status 03/08/23 Family Member Travel History No recent t [...] Recorded tetanus/diphth/pertuss (Tdap) adult/adol 08/15/12 Recorded Novel [id number], all formulation 08/24/09 Recorded zoster vaccine live 02/03/08 Recorded pneumococcal 23-polyvalent vaccine 09/19/05 Record ed tetanus-diphth toxoids (Td) adult/adol 08/13/00 Re corded 1Result Comment: VIS given: 05-21-2018 VIS published date: TIV/QIV 03/19/2015 Administered by Dilma Hamilton, Real Estate Sales Agent 05-21-2018 Medications atorvastatin 40 mg oral tablet 1 tab, Oral, Daily, # 90 tab, 3 Refill(s), Pharmacy: [facility] ([facility]) Start Date: 06/25/22 Status: Ordered Sandrine Low Dose 81 mg oral delayed release tablet 162 mg = 2 tab, Oral, Daily, # 90 tab, 0 Refill(s) Start Date: 02/02/22 Status: Ordered Diflucan 200 mg oral tablet 200 mg = 1 tab, Oral, Daily, X 7 days, # 7 tab, 0 Refill(s), 03/15/23 15:32:00 EDT, Pharmacy: [facility], 181, cm, 03/08/23 12:27:00 EDT, Height/Length Dosing, 61, kg, 03/08/23 12:27:00 EDT, Weight Dosing Start Date: 03/08/23 Stop Date: 03/15/23 Status: Ordered Eliquis 5 mg oral tablet 5 mg = 1 tab, Oral, BID, # 60 tab, 1 Refill(s), Pharmacy: [facility], 180, cm, 01/24/23 3:46:00 EDT, Height/Length Dosing, 71.5, kg, 01/24/23 3:46:00 EDT, Weight Dosing Start Date: 02/27/23 Status: Ordered enalapril 5 mg oral tablet 1 tab, Oral, Daily, # 100 tab, 2 Refill(s), Pharmacy: [facility] ([facility]) Start Date: 12/19/22 Status: Ordered HYDROmorphone 2 mg oral tablet See Instructions, PRN as needed for pain, 3 to 4 tabs every 6 hours as needed, # 168 tab, 0 Refill(s), Pharmacy: [facility], 180, cm, 01/24/23 3:46:00 EDT, Height/Length Dosing, 71.5, kg, 01/24/23 3:46:00 EDT, Weight Dosing Start Date: 02/27/23 Status: Ordered HYDROmorphone 2 mg oral tablet 2 mg = 1 tab, Oral, every 6 hr, PRN as needed for pain, # 20 tab, 0 Refill(s), Pharmacy: [facility], 181, cm, 01/20/23 11:12:00 EDT, Height/Length Dosing, 77, kg, 01/20/23 11:12:00 EDT, Weight Dosing Start Date: 01/23/23 Status: Ordered levoFLOXacin 750 mg oral tablet 750 mg = 1 tab, Oral, every 24 hr, X 7 days, # 7 tab, 0 Refill(s), 03/15/23 15:32:00 EDT, Pharmacy:[facility], 181, cm, 03/08/23 12:27:00 EDT, Height/Length Dosing, 61, kg, 03/08/23 12:27:00 EDT, Weight Dosing Start Date: 03/08/23 Stop Date: 03/15/23 Status: Ordered Metoprolol Tartrate 50 mg oral tablet See Instructions, 1 tablet in the am (50mg) and 2 tablets in the pm (100mg), # 90 tab, 3 Refill(s),other reason (Rx) Start Date: 02/27/23 Status: Ordered mirtazapine 15 mg oral tablet 15 mg = 1 tab, Oral, every day at bedtime, # 30 tab, 2 Refill(s), Pharmacy: [facility], 180, cm, 01/24/23 3:46:00 EDT, Height/Length [...] QID, # 30 mL, 1 Refill(s), Pharmacy: [facility], 180, cm, 01/24/23 3:46:00 EDT, Height/Length Dosing, 71.5, kg, 01/24/23 3:46:00 EDT, Weight Dosing Start Date: 02/27/23 Status: Ordered Problem List Condition Confirmation Course Effective Dates Status H ealth Status Informant Adenocarcinoma, lung Confirmed Active Atherosclerosis of coronary artery without angina pectoris Confirmed Active Back pain Confirmed Active Chronic pain Confirmed Active Hyperplasia of prostate Confirmed Active Hypertensive disorder Confirmed Active Metastatic adenocarcinoma Confirmed Active Metastasis to spinal column Confirmed Active Mixed hyperlipidemia Confirmed Active Overweight Confirmed Active Peripheral vascular disease Confirmed 10/28/20 Active Respiratory crackles Confirmed 12/09/21 Active Procedures Procedure Date Related Diagnosis Body Site Status Colon cancer screening 1 11/17/19 Completed Colonoscopy 05/13/07 Completed Appendectomy 1963 Completed Angioplasty 2 Completed 1cologuard 2And stents x3 Results Laboratory List Name Date CBC w/ Diff 03/08/23 Comprehensive Metabolic Panel 03/08/23 Magnesium Level 03/08/23 NT- Pro BNP 03/08/23 Troponin-I 03/08/23 Automated Diff 03/08/23 Lactic Acid 03/08/23 Most recent to oldest [Reference Range]: 1 WBC [5.0-10.0 x10^3/mcL] 11.3 x10^3/mcL *HI* (03/08/23 12:37 PM) RBC [4.6-6.0 x10^6/mcL] 4.6 x10^6/mcL (03/08/23 12:37 PM) Neutro Auto [40.0-75.0 %] 69.1 % (03/08/23 12:37 PM) Lymph Auto [20.0-50.0 %] 13.6 % *LOW* (03/08/23 12:37 PM) [place] Auto [2.0-15.0 %] 9.9 % (03/08/23 12:37 PM) Basophil Auto [0.0-1.0 %] 1.0 % (03/08/23 12:37 PM) BUN [7-18 mg/dL] 12 mg/dL (03/08/23 12:37 PM) Glucose Level [74-106 mg/dL] 109 mg/dL *HI* (03/08/23 12:37 PM) Potassium Level [3.5-5.1 mmol/L] 3.6 mmo l/L (03/08/23 12:37 PM) MCV [80.0-96.0 fL] 92.8 fL (03/08/23 12:37 PM) AST [15-37 unit/L] 24 unit/L (03/08/23 12:37 PM) ALT [16-63 unit/L] 12 unit/L *LOW* (03/08/23 12:37 PM) MCHC [31.0-35.0 g/dL] 32.8 g/dL (03/08/23 12:37 PM) Troponin-I [0.0-76.2 pg/mL] 12.2 pg/mL (03/08/23 12:37 PM) Sodium Level [136-145 mmol/L] 137 mmol/L (03/08/23 12:37 PM) Hct [41.0-51.0 %] 42.4 % (03/08/23 12:37 PM) Calcium Level [8.5-10.1 mg/dL] 8.9 mg/dL (03/08/23 12:37 PM) Albumin Level [3.4-5.0 g/dL] 2.3 g/dL *LOW* (03/08/23 12:37 PM) Protein Total [6.4-8.2 g/dL] 7.9 g/dL (03/08/23 12:37 PM) MCH [26.0-32.0 pg] 30.4 pg (03/08/23 12:37 PM) Magnesium Level [1.8-2.4 mg/dL] 1.9 mg/d L (03/08/23 12:37 PM) Neutro Absolute 7.8 x10^3/mcL *NA* (03/08/23 12:37 PM) Bilirubin Total [0.2-1.0 mg/dL] 0.5 mg/d L (03/08/23 12:37 PM) Hgb [14.0-18.0 g/dL] 13.9 g/dL *LOW* (03/08/23 12:37 PM) Alk Phos [46-146 unit/L] 111 unit/L (03/08/23 12:37 PM) Platelets [130-450 x10^3/mcL] 429 x10^3/ mcL (03/08/23 12:37 PM) CO2 [21-32 mmol/L] 28 mmol/L (03/08/23 12:37 PM) Lactic Acid Lvl [0.7-2.0 mmol/L] 2.0 mmo l/L (03/08/23 12:30 PM) eGFR Non-AA [>=60] 86 (03/08/23 12:37 PM) eGFR AA [>=60] 86 (03/08/23 12:37 PM) NT-proBNP [0-450 pg/mL] 1635 pg/mL *HI* (03/08/23 12:37 PM) Chloride Level [98-107 mmol/L] 99 mmol/L (03/08/23 12:37 PM) RDW-CV [11.5-14.5 %] 13.3 % (03/08/23 12:37 PM) Imm Gran Auto [0.0-0.9 %] 0.6 % (03/08/23 12:37 PM) Creatinine Level [0.70-1.30 mg/dL] 0.88 mg/dL (03/08/23 12:37 PM) Eos, Auto [1.0-6.0 %] 5.8 % (03/08/23 12:37 PM) Vital Signs Most recent to oldest [Reference Range]: 1 2 3 Temperature Temporal Artery [36-38 Deg C] 36.0 Deg C (03/08/23 12:16 PM) Peripheral Pulse Rate [60-100 bpm] 65 bpm (03/08/23 4:45 PM) 63 bpm (03/08/23 4:30 PM) 65 bpm (03/08/23 4:15 PM) Heart Rate Monitored [60-100 bpm] 66 bpm (03/08/23 4:45 PM) 64 bpm (03/08/23 4:30 PM) 66 bpm (03/08/23 4:15 PM) Respiratory Rate [12-24 br/min] 22 br/min (03/08/23 4:45 PM) 22 br/min (03/08/23 4:30 PM) 22 br/min (03/08/23 4:15 PM) Blood Pressure [90-140/60-90 mmHg] 120/70mmHg (03/08/23 4:30 PM) 118/66mmHg (03/08/23 4:09 PM) 105/62mmHg (03/08/23 2:19 PM) Mean Arterial Pressure, Cuff [65-140 mmHg] 87 mmHg (03/08/23 4:30 PM) 83 mmHg (03/08/23 4:09 PM) 76 mmHg (03/08/23 2:19 PM) Weight 61.00 kg (03/08/23 12:16 PM) Weight Dosing 61.00 kg (03/08/23 12:27 PM) Height 181.000 cm (03/08/23 12:16 PM) Height/Length Dosing 181.000 cm (03/08/23 12:27 PM) Body Mass Index 19.000 kg/m2 (03/08/23 12:16 PM) Social History Social History Type Response Tobacco Former tobacco user Tobacco Use:. 1 Sex Male 1quit 1980 smoked for 25 yrs. Hospital Discharge Instructions Patient Education 03/08/2023 15:45:16 Community-Acquired Pneumonia, Adult Community-Acquired Pneumonia, Adult Pneumonia is a lung infection that causes inflammation and the buildup of mucus and fluids in the lungs. This may cause coughing and difficulty breathing. Community-acquired pneumonia is pneumonia that develops in people who are not, and have not recently been, in a hospital or other health care facility. Usually, pneumonia develops as a result of an illness that is caused by a virus, such as the commoncold and the flu (influenza). It can also be caused by bacteria or fungi. While the common cold andinfluenza can pass from person to person (are contagious), pneumonia itself is not considered contagious. What are the causes? This condition may be caused by: ??? Viruses. ??? Bacteria. ??? Fungi, such as molds or mushrooms. What increases the risk? The following factors may make you more likely to develop this condition: ??? Having certain medical conditions, such as: ??? A long-term (chronic) disease, which may include chronic obstructive pulmonary disease (COPD), asthma, heart failure, cystic fibrosis, diabetes, kidney disease, sickle cell disease, and human immunodeficiency virus (HIV). ??? A condition that increases the risk of breathing in (aspirating) mucus and other fluids from your mouth and nose. ??? A weakened body defense system (immune system). ??? Having had your spleen removed (splenectomy). The spleen is the organ that helps fight germs and infections. ??? Not cleaning your teeth and gums well (poor dental hygiene). ??? Using tobacco products. ??? Traveling to places where germs that cause pneumonia are present. ??? Being near certain animals, or animal habitats, that have germs that cause pneumonia. ??? Being older than 65 years of age. What are the signs or symptoms? Symptoms of this condition include: ??? A dry cough or a wet (productive) cough. ??? A fever. ??? Sweating or chills. ??? Chest pain, especially when breathing deeply or coughing. ??? Fast breathing, difficulty breathing, or shortness of breath. ??? Tiredness (fatigue). ??? Muscle aches. How is this diagnosed? This condition may be diagnosed based on your medical history or a physical exam. You may also havetests, including: ??? Chest X-rays. ??? Tests of the level of oxygen and other gases in your blood. ??? Tests of: ??? Your blood. ??? Mucus from your lungs (sputum). ??? Fluid around your lungs (pleural fluid). ??? Your urine. If your pneumonia is severe, other tests may be done to learn more about the cause. How is this treated? Treatment for this condition depends on many factors, such as the cause of your pneumonia, your medicines, and other medical conditions that you have. For most adults, pneumonia may be treated at home. In some cases, treatment must happen in a hospital and may include: ??? Medicines that are given by mouth (orally) or through an IV, including: ??? Antibiotic medicines, if bacteria caused the pneumonia. ??? Medicines that kill viruses (antiviral medicines), if a virus caused the pneumonia. ??? Oxygen therapy. Severe pneumonia, although rare, may require the following treatments: ??? Mechanical ventilation.This procedure uses a machine to help you breathe if you cannot breathe well on your own or maintain a safe level of blood oxygen. ??? Thoracentesis. This procedure removes any buildup of pleural fluid to help with breathing. Follow these instructions at home: Medicines ??? Take [id number] and prescription medicines only as told by your health care provider. ??? Take cough medicine only if you have trouble sleeping. Cough medicine can prevent your body from removing mucus from your lungs. ??? If you were prescribed an antibiotic medicine, take it as told by your health care provider. Donot stop taking the antibiotic even if you start to feel better. Lifestyle ??? Do not drink alcohol. ??? Do not use any products that contain nicotine or tobacco, such as cigarettes, e-cigarettes, andchewing tobacco. If you need help quitting, ask your health care provider. ??? Eat a healthy diet. This includes plenty of vegetables, fruits, whole grains, low-fat dairy products, and lean protein. General instructions ??? Rest a lot and get at least 8 hours of sleep each night. ??? Sleep in a partly upright position at night. Place a few pillows under your head or sleep in a reclining chair. ??? Return to your normal activities as told by your health care provider. Ask your health care provider what activities are safe for you. ??? Drink enough fluid to keep your urine pale yellow. This helps to thin the mucus in your lungs. ??? If your throat is sore, gargle with a salt???water mixture 3???4 times a day or as needed. To make a salt???water mixture, completely dissolve ?1 tsp (3???6 g) of salt in 1 cup (237 mL) of warm water. ??? Keep all follow-up visits as told by your health care provider. This is important. How is this prevented? You can lower your risk of developing community-acquired pneumonia by: ??? Getting the pneumonia vaccine. There are different types and schedules of pneumonia vaccines. Ask your health care provider which option is best for you. Consider getting the pneumonia vaccine if: ??? You are older than 65 years of age. ??? You are 19???65 years of age and are receiving cancer treatment, have chronic lung disease, or have other medical conditions that affect your immune system. Ask your health care provider if this applies to you. ??? Getting your influenza vaccine every year. Ask your health care provider which type of vaccine is best for you. ??? Getting regular dental checkups. ??? Washing your hands often with soap and water for at least 20 seconds. If soap and water are notavailable, use hand pinking machine operator. Contact a health care provider if you have: ??? A fever. ??? Trouble sleeping because you cannot control your cough with cough medicine. Get help right away if: ??? Your shortness of breath becomes worse. ??? Your chest pain increases. ??? Your sickness becomes worse, especially if you are an older adult or have a weak immune system. ??? You cough up blood. These symptoms may represent a serious problem that is an emergency. Do not wait to see if the symptoms will go away. Get medical help right away. Call your local emergency services (911 in the [place] Do not drive yourself to the hospital. Summary ??? Pneumonia is an infection of the lungs. ??? Community-acquired pneumonia develops in people who have not been in the hospital. It can be caused by bacteria, viruses, or fungi. ??? This condition may be treated with antibiotics or antiviral medicines. ??? Severe pneumonia may require a hospital stay and treatment to help with breathing. This information is not intended to replace advice given to you by your health care provider. Make sure you discuss any questions you have with your health care provider. Document Revised: 05/11/2020 Document Reviewed: 05/11/2020 [employer] Patient Education ?? 2022 [employer]. 03/08/2023 15:45:08 Oral Thrush, Adult Oral Thrush, Adult Oral thrush, also called oral candidiasis, is a fungal infection that develops in the mouth and throat and on the tongue. It causes white patches to form in the mouth and on the tongue. Many cases of thrush are mild, but this infection can also be serious. Thrush can be a repeated (recurrent) problem for certain people who have a weak body defense system (immune system). The weakness can be caused by chronic illnesses, or by taking medicines that limit the body's ability to fight infection. If a person has difficulty fighting infection, the fungus that causes thrush can spread through the body. This can cause life-threatening blood or organ infections. What are the causes? This condition is caused by a fungus (yeast) called Flora albicans. ??? This fungus is normally present in small amounts in the mouth and on other mucous membranes. Itusually causes no harm. ??? If conditions are present that allow the fungus to grow without control, it invades surroundingtissues and becomes an infection. ??? Other Flora species can also lead to thrush, though this is rare. What increases the risk? The following factors may make you more likely to develop this condition: ??? Having a weakened immune system. ??? Being an older adult. ??? Having diabetes, cancer, or HIV (human immunodeficiency virus). ??? Having dry mouth (xerostomia). ??? Being or . ??? Having poor dental care, especially in those who have dentures. ??? Using antibiotic or steroid medicines. What are the signs or symptoms? Symptoms of this condition can vary from mild and moderate to severe and persistent. Symptoms may include: ??? A burning feeling in the mouth and throat. This can occur at the start of a thrush infection. ??? White patches that stick to the mouth and tongue. The tissue around the patches may be red, raw, and painful. If rubbed (during tooth brushing, for example), the patches and the tissue of the mouth may bleed easily. ??? A bad taste in the mouth or difficulty tasting foods. ??? A cottony feeling in the mouth. ??? Pain during eating and swallowing. ??? Poor appetite. ??? Cracking at the corners of the mouth. How is this diagnosed? This condition is diagnosed based on: ??? A physical exam. ??? Your medical history. How is this treated? This condition is treated with medicines called antifungals, which prevent the growth of fungi. These medicines are either applied directly to the affected area (topical) or swallowed (oral). The treatment will depend on the severity of the condition. ??? Mild cases of thrush may be treated with an antifungal mouth rinse or lozenges. Treatment usually lasts about 14 days. ??? Moderate to severe cases of thrush can be treated with oral antifungal medicine, if they have spread to the esophagus. A topical antifungal medicine may also be used. For some severe infections, treatment may need to continue for more than 14 days. ??? Oral antifungal medicines are rarely used during because they may be harmful to the unborn child. If you are , talk with your health care provider about options for treatment. ??? Persistent or recurrent thrush. For cases of thrush that do not go away or keep coming back: ??? Treatment may be needed twice as long as the symptoms last. ??? Treatment will include both oral and topical antifungal medicines. ??? People with a weakened immune system can take an antifungal medicine on a continuous basis to prevent thrush infections. It is important to treat conditions that make a person more likely to get thrush, such as diabetes or HIV. Follow these instructions at home: Relieving soreness and discomfort To help reduce the discomfort of thrush: ??? Drink cold liquids such as water or iced tea. ??? Try flavored ice treats or frozen juices. ??? Eat foods that are easy to swallow, such as gelatin, ice cream, or custard. ??? Try drinking from a straw if the patches in your mouth are painful. General instructions ??? Take or use ziek-kxr-vqffntm and prescription medicines only as told by your health care provider. ??? Eat plain, unflavored yogurt as directed by your health care provider. Check the label to make sure the yogurt contains live cultures. This yogurt can help healthy bacteria grow in the mouth and can stop the growth of the fungus that causes thrush. ??? If you wear dentures, remove the dentures before going to bed, brush them vigorously, and soak them in a cleaning solution as directed by your health care provider. ??? Rinse your mouth with a warm salt-water mixture several times a day. To make a salt-water mixture, dissolve ?1 tsp (3???6 g) of salt in 1 cup (237 mL) of warm water. Contact a health care provider if: ??? Your symptoms are getting worse or are not improving within 7 days of starting treatment. ??? You have symptoms of a spreading infection, such as white patches on the skin outside of the mouth. ??? You are your baby and you have redness and pain in the nipples. Summary ??? Oral thrush, also called oral candidiasis, is a fungal infection that develops in the mouth andthroat and on the tongue. It causes white patches to form in the mouth and on the tongue. ??? You are more likely to get this condition if you have a weakened immune system or an underlyingcondition, such as HIV, cancer, or diabetes. ??? This condition is treated with medicines called antifungals, which prevent the growth of fungi. ??? Contact a health care provider if your symptoms do not improve, or get worse, within 7 days of starting treatment. This information is not intended to replace advice given to you by your health care provider. Make sure you discuss any questions you have with your health care provider. Document Revised: 03/29/2022 Document Reviewed: 06/04/2020 [employer] Patient Education ?? 2022 [employer]. 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 Hx Lung CA w/mets. Active with [facility]. Order sent to [facility] for PT. Physician Emergency department Note * Angela Ramos MD: PERFORM Event Display: ED Note Physician Authored Date: [id number] MIRNA CANSECO :1940 Age:82 years Sex:Male Visit Date:03/08/2023 Primary Care Physician: Fazal Ponce DO Basic Information Time Seen: Angela Ramos MD / 03/08/2023 12:18 Chief Complaint states His CA is all over, he's getting immunotherapy every 3 weeks but if he keeps losing weight they will stop it. He's very weak today, PT has bupranorphoe patch on L deltoid that was placed on sunday for 7 days. PT not c/o pain. PT pale, weak, History Of Present Illness: Patient reported??feeling weak??seem to come on suddenly today??much worse than usual. ??Patient ishere with his he is receiving immunotherapy every 3 weeks??he seems to keep losing weight and his states that they will not continue with immunotherapy??for his cancer if he continues to lose weight.?? Patient reports he does not eat a lot as it just makes him feel full. ??Patient had 2 eggs and toast and had started on a shake??this morning.?? No fever no chills no ear nose or throat pain no chest pain no cough??slight shortness of breath??patient denies that this is acutely worse, no nausea no vomiting no extremity edema??no skin rashes??no diarrhea??no urinary issues.?? states that patient received IV hydration??at [facility] when he went to??see his oncologist this Sunday.?? Today is . Review of Systems: see hpi for ros Physical Exam Vitals & Measurements T:??36.0?C ??(Temporal Artery)?? HR:??65??(Peripheral)?? HR:??66??(Monitored)?? RR:??22?? BP:??120/70?? SpO2:??96%?? HT:??181.000??cm?? WT:??61.00??kg?? BMI:??19.000?? O2 Therapy:??Room air?? General: Alert and oriented, skinny,?No??acute distress,??appears??comfort is keeping his eyes closed Eye: PERRL?Normal??conjunctiva,??No??scleral icterus??extraocular muscles are intact no nystagmus HENT: Normocephalic,??nontraumatic??Normal hearing, tongue has white lesions??on throughout??patient reports things do not taste good. Lungs: Clear to auscultation,?Non-labored?? respiration Heart:?Normal?? rate,?Regular??rhythm,?No??murmur,?No??gallop,?No??edema Chest: wall excursion wnl no abnormal movements no obvious deformities Abdomen: Soft, non-tender, non-distended,??No??masses Musculoskeletal:?Normal?? range of motion and strength,?No??tenderness,?No??swelling Skin: Skin is warm, dry and pink,?No??rashes,?No??lesions Neurologic: Awake, alert and oriented X4 Psychiatric: Cooperative, appropriate mood and affect Medical Decision Making: For MDM please see under assessment and plan Procedure No Qualifying Data Assessment/Plan 1.??Thrush??B37.0 Patient??took Diflucan 200 mg here in the emergency department??and will be on??Diflucan 200 mg/dayfor the next 7 days.?? Hopefully this??treatment will help him enjoy the taste of food better. Ordered: Diflucan 200 mg oral tablet, 200 mg = 1 tab, Oral, Daily, X 7 days, # 7 tab, 0 Refill(s), 03/15/23 15:32:00 EDT, Pharmacy: [id number], 181, cm, 03/08/23 12:27:00 EDT, Height/Length Dosing, 61, kg, 03/08/23 12:27:00 EDT, Weight Dosing levoFLOXacin 750 mg oral tablet, 750 mg = 1 tab, Oral, every 24 hr, X 7 days, # 7 tab, 0 Refill(s),03/15/23 15:32:00 EDT, Pharmacy: [id number], 181, cm, 03/08/23 12:27:00 EDT, Height/Length Dosing, 61, kg, 03/08/23 12:27:00 EDT, Weight Dosing Discharge Patient, 03/08/23 16:44:00 EDT, Home Independently, Constant Indicator ?? 2.??Pneumonia??J18.9 Patient to take Levaquin 750 mg for the next 7 days.?? Patient without significant symptoms although patient does feel tired and fatigued hopefully this will help improve his symptoms. Ordered: Discharge Patient, 03/08/23 16:44:00 EDT, Home Independently, Constant Indicator ?? 3.??Weakness??R53.1 I think his weakness is likely from dehydration patient??felt improved and was able to keep his eyes much more open after 3 L of??saline was worried about his elevated BNP??his??preliminary echo showed an ejection fraction??of 60 to 65%??trace??mitral regurg and tricuspid regurg??pulmonary artery pressures were normal??he was said to have an ascending dilated or already of 4 cm??the official readis not read yet.?? Patient will try to increase his intake of Ensure and other foods.?? With patient's adenocarcinoma??prognosis is poor??unless treatment or nutrition improves greatly. ??Patient needs physical therapy??due to his weakness and fatigue??I think this will hopefully help him??improve his appetite??and hopefully help him feel better. Ordered: Discharge Patient, 03/08/23 16:44:00 EDT, Home Independently, Constant Indicator ?? Orders: Echocardiogram Complete, 03/08/23 14:12:00 EDT, Stop date 03/08/23 14:12:00 EDT Patient Education Community-Acquired Pneumonia, Adult Oral Thrush, Adult Follow Up With When Contact Information Follow up with primary care provider Within 1 to 2 weeks Additional Instructions: Medication Reconciliation New Prescription fluconazole (Diflucan 200 mg oral tablet)1 tab Oral (given by mouth) every day for 7 Days. Refills:0. ?? levoFLOXacin (levoFLOXacin 750 mg oral tablet)1 tab Oral (given by mouth) every 24 hours for 7 Days. Refills: 0. ?? Unchanged apixaban (Eliquis 5 mg oral tablet)1 tab Oral (given by mouth) 2 times a day. Refills: 1. ?? aspirin (Sandrine Low Dose 81 mg oral delayed release tablet)2 tab Oral (given by mouth) every day. ?? atorvastatin (atorvastatin 40 mg oral tablet)1 tab Oral (given by mouth) every day. Refills: 3. ?? enalapril (enalapril 5 mg oral tablet)1 tab Oral (given by mouth) every day. Refills: 2. ?? HYDROmorphone (HYDROmorphone 2 mg oral tablet)1 tab Oral (given by mouth) every 6 hours as needed as needed for pain. Refills: 0. ?? HYDROmorphone (HYDROmorphone 2 mg oral tablet)3 to 4 tabs every 6 hours as needed; as needed as needed for pain. Refills: 0. ?? metoprolol (Metoprolol Tartrate 50 mg oral tablet)1 tablet in the am (50mg) and 2 tablets in the pm(100mg). Refills: 3. ?? mirtazapine (mirtazapine 15 mg oral tablet)1 tab Oral (given by mouth) every night at bedtime. Refills: 2. ?? nitroglycerin (nitroglycerin 0.3 mg sublingual tablet)1 tab Sublingual (dissolve under the tongue) every 5 minutes as needed as needed for chest pain. not to exceed 3 doses/15 min--if pain persists, seek medical attention. ?? nystatin (nystatin 100,000 units/mL oral suspension)1 Milliliters Oral (given by mouth) 4 times a day. Refills: 1. 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 LATEST RESULTS?? HISTORICAL RESULTS?? WBC?? 03/08/23 12:37?? 11.3 ??High?? 01/20/23?? 19.5 ??High?? RBC?? 03/08/23 12:37?? 4.6?? 01/20/23?? 5.0?? Hgb?? 03/08/23 12:37?? 13.9 ??Low?? 01/20/23?? 15.8?? Hct?? 03/08/23 12:37?? 42.4?? 01/20/23?? 46.9?? MCV?? 03/08/23 12:37?? 92.8?? 01/20/23?? 94.0?? MCH?? 03/08/23 12:37?? 30.4?? 01/20/23?? 31.7?? MCHC?? 03/08/23 12:37?? 32.8?? 01/20/23?? 33.7?? RDW-CV?? 03/08/23 12:37?? 13.3?? 01/20/23?? 12.2?? Platelets?? 03/08/23 12:37?? 429?? 01/20/23?? 339?? Neutro Auto?? 03/08/23 12:37?? 69.1?? 01/12/23?? 74.4?? Lymph Auto?? 03/08/23 12:37?? 13.6 ??Low?? 01/12/23?? 11.5 ??Low?? [place] Auto?? 03/08/23 12:37?? 9.9?? 01/12/23?? 9.6?? Eos, Auto?? 03/08/23 12:37?? 5.8?? 01/12/23?? 3.4?? Basophil Auto?? 03/08/23 12:37?? 1.0?? 01/12/23?? 0.7?? Imm Gran Auto?? 03/08/23 12:37?? 0.6?? 01/12/23?? 0.4?? Neutro Absolute?? 03/08/23 12:37?? 7.8?? 01/12/23?? 12.5? Routine Chemistry?? LATEST RESULTS?? HISTORICAL RESULTS?? Sodium Level?? 03/08/23 12:37?? 137?? 01/20/23?? 135 ??Low?? Potassium Level?? 03/08/23 12:37?? 3.6?? 01/20/23?? 4.3?? Chloride Level?? 03/08/23 12:37?? 99?? 01/20/23?? 97 ??Low?? CO2?? 03/08/23 12:37?? 28?? 01/20/23?? 28?? Alk Phos?? 03/08/23 12:37?? 111?? 01/20/23?? 138?? AST?? 03/08/23 12:37?? 24?? 01/20/23?? 15?? ALT?? 03/08/23 12:37?? 12 ??Low?? 01/20/23?? 15 ??Low?? BUN?? 03/08/23 12:37?? 12?? 01/20/23?? 25 ??High?? Glucose Level?? 03/08/23 12:37?? 109 ??High?? 01/20/23?? 146 ??High?? Creatinine Level?? 03/08/23 12:37?? 0.88?? 01/20/23?? 1.12?? eGFR AA?? 03/08/23 12:37?? 86?? 01/20/23?? 66?? eGFR Non-AA?? 03/08/23 12:37?? 86?? 01/20/23?? 66?? Calcium Level?? 03/08/23 12:37?? 8.9?? 01/20/23?? 9.4?? Protein Total?? 03/08/23 12:37?? 7.9?? 01/20/23?? 7.8?? Albumin Level?? 03/08/23 12:37?? 2.3 ??Low?? 01/20/23?? 3.1 ??Low?? Bilirubin Total?? 03/08/23 12:37?? 0.5?? 01/20/23?? 0.7?? Lactic Acid Lvl?? 03/08/23 12:30?? 2.0?? 01/20/23?? 2.0?? Magnesium Level?? 03/08/23 12:37?? 1.9?? 01/20/23?? 1.7 ??Low? Cardiac Isoenzymes?? LATEST RESULTS?? HISTORICAL RESULTS?? Troponin-I?? 03/08/23 12:37?? 12.2?? 01/20/23?? 10.8?? NT-proBNP?? 03/08/23 12:37?? 1635 ??High?? 01/20/23?? 394? Electronically Signed on 03/08/23 04:49 PM Angela Ramos MD Emergency department Discharge instructions * Angela Ramos MD: PERFORM Event Display: ED Discharge Information Authored Date: [id number] MIRNA CANSECO :1940 Age:82 years Sex:Male Visit Date:03/08/2023 Primary Care Physician: Fazal Ponce DO Discharge Instructions We would like to thank you for allowing us to assist you with your healthcare needs. The following includes patient education materials and information regarding your injury/illness. Diagnosis from Today's Visit Thrush Pneumonia Weakness Discharge Vitals Temperature??(Temporal Artery) 96.8 ??F (36.0 ??C) Heart Rate??(Peripheral) 63 Heart Rate??(Monitored) 64 Respiratory Rate?? 22 Blood Pressure?? 120/70?? Height?? 71.26 in (181.000 cm) Weight?? 134.50 lb (61.00 kg) BMI?? 19.000 Allergies No Known Medication Allergies What to Do Next Instructions from Your Care Team Keep any follow-up with oncology. ??If you feel dehydrated please??be in touch with your primary care office??and if needed please return to the emergency department.?? Try to drink??at least 3??bottles cartons of??Ensure per day and try to eat any other food can.?? You are welcome back to the emergency department at any time if you feel you need. You Need to Schedule the Following Appointments Follow Up with??Follow up with primary care provider When:??Within 1 to 2 weeks Upcoming Scheduled Appointments Sunday 2:20 PM EDT ?? You were treated today on [...] Much When Why Instructions Next Dose New fluconazole (Diflucan 200 mg oral tablet) 1 tab Oral (given by mouth) Every day Thrush Duration: 7 Days Pickup at [facility] New levoFLOXacin (levoFLOXacin 750 mg oral tablet) 1 tab Oral (given by mouth) Every 24 hours Thrush Duration: 7 Days Pickup at [facility] Unchanged apixaban (Eliquis 5 mg oral tablet) 1 tab Oral (given by mouth) 2 times a day Unchanged aspirin (Sandrine Low Dose 81 mg oral delayed release tablet) 2 tab Oral (given by mouth) Every day Unchanged atorvastatin (atorvastatin 40 mg oral tablet) 1 tab Oral (given by mouth) Every day Unchanged enalapril (enalapril 5 mg oral tablet) 1 tab Oral (given by mouth) Every day Unchanged HYDROmorphone (HYDROmorphone 2 mg oral tablet) 1 tab Oral (given by mouth) Every 6 hours as needed for as needed for pain Lung mass Unchanged HYDROmorphone (HYDROmorphone 2 mg oral tablet) See instructions Adenocarcinoma, lung Back pain 3 to 4 tabs every 6 hours as needed, As needed for as needed for pain ?? Unchanged metoprolol (Metoprolol Tartrate 50 mg oral tablet) See instructions 1 tablet in the am (50mg) and 2 tablets in the pm (100mg) ?? Unchanged mirtazapine (mirtazapine 15 mg oral tablet) 1 tab Oral (given by mouth) Every night at bedtime Weight loss Unchanged nitroglycerin (nitroglycerin 0.3 mg sublingual tablet) 1 tab Sublingual (dissolve under the tongue) Every 5 minutes as needed for as needed for chest pain not to exceed 3 doses/ 15 min--if pain persists, seek medical attention ?? Unchanged nystatin (nystatin 100,000 units/ mL oral suspension) 1 Milliliters Oral (given by mouth) 4 times a day [facility] Information [id number]: [address], [place] [id number] [phone] Education Materials Community-Acquired Pneumonia, Adult Pneumonia is a lung infection that causes inflammation and the buildup of mucus and fluids in the lungs. This may cause coughing and difficulty breathing. Community-acquired pneumonia is pneumonia that develops in people who are not, and have not recently been, in a hospital or other health care facility. Usually, pneumonia develops as a result of an illness that is caused by a virus, such as the commoncold and the flu (influenza). It can also be caused by bacteria or fungi. While the common cold andinfluenza can pass from person to person (are contagious), pneumonia itself is not considered contagious. What are the causes? This condition may be caused by: ? Viruses. ? Bacteria. ? Fungi, such as molds or mushrooms. What increases the risk? The following factors may make you more likely to develop this condition: ? Having certain medical conditions, such as: ? A long-term (chronic) disease, which may include chronic obstructive pulmonary disease (COPD), asthma, heart failure, cystic fibrosis, diabetes, kidney disease, sickle cell disease, and human immunodeficiency virus (HIV). ? A condition that increases the risk of breathing in (aspirating) mucus and other fluids from your mouth and nose. ? A weakened body defense system (immune system). ? Having had your spleen removed (splenectomy). The spleen is the organ that helps fight germs and infections. ? Not cleaning your teeth and gums well (poor dental hygiene). ? Using tobacco products. ? Traveling to places where germs that cause pneumonia are present. ? Being near certain animals, or animal habitats, that have germs that cause pneumonia. ? Being older than 65 years of age. What are the signs or symptoms? Symptoms of this condition include: ? A dry cough or a wet (productive) cough. ? A fever. ? Sweating or chills. ? Chest pain, especially when breathing deeply or coughing. ? Fast breathing, difficulty breathing, or shortness of breath. ? Tiredness (fatigue). ? Muscle aches. How is this diagnosed? This condition may be diagnosed based on your medical history or a physical exam. You may also havetests, including: ? Chest X-rays. ? Tests of the level of oxygen and other gases in your blood. ? Tests of: ? Your blood. ? Mucus from your lungs (sputum). ? Fluid around your lungs (pleural fluid). ? Your urine. If your pneumonia is severe, other tests may be done to learn more about the cause. How is this treated? Treatment for this condition depends on many factors, such as the cause of your pneumonia, your medicines, and other medical conditions that you have. For most adults, pneumonia may be treated at home. In some cases, treatment must happen in a hospital and may include: ? Medicines that are given by mouth (orally) or through an IV, including: ? Antibiotic medicines, if bacteria caused the pneumonia. ? Medicines that kill viruses (antiviral medicines), if a virus caused the pneumonia. ? Oxygen therapy. Severe pneumonia, although rare, may require the following treatments: ? Mechanical ventilation.This procedure uses a machine to help you breathe if you cannot breathe wellon your own or maintain a safe level of blood oxygen. ? Thoracentesis. This procedure removes any buildup of pleural fluid to help with breathing. Follow these instructions at home: Medicines ? Take ibod-pai-cgqfdoy and prescription medicines only as told by your health care provider. ? Take cough medicine only if you have trouble sleeping. Cough medicine can prevent your body from removing mucus from your lungs. ? If you were prescribed an antibiotic medicine, take it as told by your health care provider. Do notstop taking the antibiotic even if you start to feel better. Lifestyle ? Do not drink alcohol. ? Do not use any products that contain nicotine or tobacco, such as cigarettes, e- cigarettes, and chewing tobacco. If you need help quitting, ask your health care provider. ? Eat a healthy diet. This includes plenty of vegetables, fruits, whole grains, low-fat dairy products, and lean protein. General instructions ? Rest a lot and get at least 8 hours of sleep each night. ? Sleep in a partly upright position at night. Place a few pillows under your head or sleep in a reclining chair. ? Return to your normal activities as told by your health care provider. Ask your health care provider what activities are safe for you. ? Drink enough fluid to keep your urine pale yellow. This helps to thin the mucus in your lungs. ? If your throat is sore, gargle with a salt???water mixture 3???4 times a day or as needed. To make a salt???water mixture, completely dissolve ?1 tsp (3???6 g) of salt in 1 cup (237 mL) of warm water. ? Keep all follow-up visits as told by your health care provider. This is important. How is this prevented? You can lower your risk of developing community-acquired pneumonia by: ? Getting the pneumonia vaccine. There are different types and schedules of pneumonia vaccines. Ask your health care provider which option is best for you. Consider getting the pneumonia vaccine if: ? You are older than 65 years of age. ? You are 19???65 years of age and are receiving cancer treatment, have chronic lung disease, or haveother medical conditions that affect your immune system. Ask your health care provider if this applies to you. ? Getting your influenza vaccine every year. Ask your health care provider which type of vaccine is best for you. ? Getting regular dental checkups. ? Washing your hands often with soap and water for at least 20 seconds. If soap and water are not available, use hand pinking machine operator. Contact a health care provider if you have: ? A fever. ? Trouble sleeping because you cannot control your cough with cough medicine. Get help right away if: ? Your shortness of breath becomes worse. ? Your chest pain increases. ? Your sickness becomes worse, especially if you are an older adult or have a weak immune system. ? You cough up blood. These symptoms may represent a serious problem that is an emergency. Do not wait to see if the symptoms will go away. Get medical help right away. Call your local emergency services (911 in the [place] Do not drive yourself to the hospital. Summary ? Pneumonia is an infection of the lungs. ? Community-acquired pneumonia develops in people who have not been in the hospital. It can be causedby bacteria, viruses, or fungi. ? This condition may be treated with antibiotics or antiviral medicines. ? Severe pneumonia may require a hospital stay and treatment to help with breathing. This information is not intended to replace advice given to you by your health care provider. Make sure you discuss any questions you have with your health care provider. Document Revised: 05/11/2020 Document Reviewed: 05/11/2020 [employer] Patient Education ?? 2022 [employer]. Oral Thrush, Adult Oral thrush, also called oral candidiasis, is a fungal infection that develops in the mouth and throat and on the tongue. It causes white patches to form in the mouth and on the tongue. Many cases of thrush are mild, but this infection can also be serious. Thrush can be a repeated (recurrent) problem for certain people who have a weak body defense system (immune system). The weakness can be caused by chronic illnesses, or by taking medicines that limit the body's ability to fight infection. If a person has difficulty fighting infection, the fungus that causes thrush can spread through the body. This can cause life-threatening blood or organ infections. What are the causes? This condition is caused by a fungus (yeast) called Flora albicans. ? This fungus is normally present in small amounts in the mouth and on other mucous membranes. It usually causes no harm. ? If conditions are present that allow the fungus to grow without control, it invades surrounding tissues and becomes an infection. ? Other Flora species can also lead to thrush, though this is rare. What increases the risk? The following factors may make you more likely to develop this condition: ? Having a weakened immune system. ? Being an older adult. ? Having diabetes, cancer, or HIV (human immunodeficiency virus). ? Having dry mouth (xerostomia). ? Being or . ? Having poor dental care, especially in those who have dentures. ? Using antibiotic or steroid medicines. What are the signs or symptoms? Symptoms of this condition can vary from mild and moderate to severe and persistent. Symptoms may include: ? A burning feeling in the mouth and throat. This can occur at the start of a thrush infection. ? White patches that stick to the mouth and tongue. The tissue around the patches may be red, raw, and painful. If rubbed (during tooth brushing, for example), the patches and the tissue of the mouth may bleed easily. ? A bad taste in the mouth or difficulty tasting foods. ? A cottony feeling in the mouth. ? Pain during eating and swallowing. ? Poor appetite. ? Cracking at the corners of the mouth. How is this diagnosed? This condition is diagnosed based on: ? A physical exam. ? Your medical history. How is this treated? This condition is treated with medicines called antifungals, which prevent the growth of fungi. These medicines are either applied directly to the affected area (topical) or swallowed (oral). The treatment will depend on the severity of the condition. ? Mild cases of thrush may be treated with an antifungal mouth rinse or lozenges. Treatment usually lasts about 14 days. ? Moderate to severe cases of thrush can be treated with oral antifungal medicine, if they have spread to the esophagus. A topical antifungal medicine may also be used. For some severe infections, treatment may need to continue for more than 14 days. ? Oral antifungal medicines are rarely used during because they may be harmful to the unborn child. If you are , talk with your health care provider about options for treatment. ? Persistent or recurrent thrush. For cases of thrush that do not go away or keep coming back: ? Treatment may be needed twice as long as the symptoms last. ? Treatment will include both oral and topical antifungal medicines. ? People with a weakened immune system can take an antifungal medicine on a continuous basis to prevent thrush infections. It is important to treat conditions that make a person more likely to get thrush, such as diabetes or HIV. Follow these instructions at home: Relieving soreness and discomfort To help reduce the discomfort of thrush: ? Drink cold liquids such as water or iced tea. ? Try flavored ice treats or frozen juices. ? Eat foods that are easy to swallow, such as gelatin, ice cream, or custard. ? Try drinking from a straw if the patches in your mouth are painful. General instructions ? Take or use iapf-kme-mrztnsq and prescription medicines only as told by your health care provider. ? Eat plain, unflavored yogurt as directed by your health care provider. Check the label to make surethe yogurt contains live cultures. This yogurt can help healthy bacteria grow in the mouth and can stop the growth of the fungus that causes thrush. ? If you wear dentures, remove the dentures before going to bed, brush them vigorously, and soak themin a cleaning solution as directed by your health care provider. ? Rinse your mouth with a warm salt-water mixture several times a day. To make a salt-water mixture, dissolve ?1 tsp (3???6 g) of salt in 1 cup (237 mL) of warm water. Contact a health care provider if: ? Your symptoms are getting worse or are not improving within 7 days of starting treatment. ? You have symptoms of a spreading infection, such as white patches on the skin outside of the mouth. ? You are your baby and you have redness and pain in the nipples. Summary ? Oral thrush, also called oral candidiasis, is a fungal infection that develops in the mouth and throat and on the tongue. It causes white patches to form in the mouth and on the tongue. ? You are more likely to get this condition if you have a weakened immune system or an underlying condition, such as HIV, cancer, or diabetes. ? This condition is treated with medicines called antifungals, which prevent the growth of fungi. ? Contact a health care provider if your symptoms do not improve, or get worse, within 7 days of starting treatment. This information is not intended to replace advice given to you by your health care provider. Make sure you discuss any questions you have with your health care provider. Document Revised: 03/29/2022 Document Reviewed: 06/04/2020 [employer] Patient Education ?? 2022 [employer] Tests Performed Medications and Immunizations Administered Given 0.9% NaCl bolus, 1 L, IV Bolus 0.9% NaCl bolus, 1 L, IV Bolus 0.9% NaCl bolus, 1 L, IV Bolus Diflucan, 200 mg, Oral levoFLOXacin, 750 mg, Oral Lab Test Name Test Result Date/Time WBC 11.3 x10^3/mcL 03/08/2023 12:37 EDT RBC 4.6 x10^6/mcL 03/08/2023 12:37 EDT Hgb 13.9 g/dL 03/08/2023 12:37 EDT Hct 42.4 % 03/08/2023 12:37 EDT MCV 92.8 fL 03/08/2023 12:37 EDT MCH 30.4 pg 03/08/2023 12:37 EDT MCHC 32.8 g/dL 03/08/2023 12:37 EDT RDW-CV 13.3 % 03/08/2023 12:37 EDT Platelets 429 x10^3/mcL 03/08/2023 12:37 EDT Neutro Auto 69.1 % 03/08/2023 12:37 EDT Lymph Auto 13.6 % 03/08/2023 12:37 EDT [place] Auto 9.9 % 03/08/2023 12:37 EDT Eos, Auto 5.8 % 03/08/2023 12:37 EDT Basophil Auto 1.0 % 03/08/2023 12:37 EDT Imm Gran Auto 0.6 % 03/08/2023 12:37 EDT Neutro Absolute 7.8 x10^3/mcL 03/08/2023 12:37 EDT Sodium Level 137 mmol/L 03/08/2023 12:37 EDT Potassium Level 3.6 mmol/L 03/08/2023 12:37 EDT Chloride Level 99 mmol/L 03/08/2023 12:37 EDT CO2 28 mmol/L 03/08/2023 12:37 EDT Alk Phos 111 unit/L 03/08/2023 12:37 EDT AST 24 unit/L 03/08/2023 12:37 EDT ALT 12 unit/L 03/08/2023 12:37 EDT BUN 12 mg/dL 03/08/2023 12:37 EDT Glucose Level 109 mg/dL 03/08/2023 12:37 EDT Creatinine Level 0.88 mg/dL 03/08/2023 12:37 EDT eGFR AA 86 03/08/2023 12:37 EDT eGFR Non-AA 86 03/08/2023 12:37 EDT Calcium Level 8.9 mg/dL 03/08/2023 12:37 EDT Protein Total 7.9 g/dL 03/08/2023 12:37 EDT Albumin Level 2.3 g/dL 03/08/2023 12:37 EDT Bilirubin Total 0.5 mg/dL 03/08/2023 12:37 EDT Lactic Acid Lvl 2.0 mmol/L 03/08/2023 12:30 EDT Magnesium Level 1.9 mg/dL 03/08/2023 12:37 EDT Troponin-I 12.2 pg/mL 03/08/2023 12:37 EDT NT-proBNP 1635 pg/mL 03/08/2023 12:37 EDT Patient/Lens Edge Grinder Machine Signature Patient Name:MIRNA CANSECO Jordi I have received this information and my questions have been answered. Patient/Lens Edge Grinder Machine Name: Patient/Lens Edge Grinder Machine Signature: Relationship to Patient: Witness Name/Signature: Date: Electronically Signed on: 03/08/2023 16:46 EDTSigned by:AMS Discharge summary * Mick Caban: PERFORM Event Display: Discharge Note Authored Date: * Mick Caban: PERFORM Event Display: Discharge Note Authored Date: Diagnosis: 1. Thrush Comment: Diagnosis: 2. Pneumonia Comment: Diagnosis: 3. Weakness Comment: Diagnosis: Weakness Comment: Electronically Signed on 03/08/23 07:56 PM Mick Caban Patient Care team information Care Team Personnel Name: Fazal Ponce DO Position: Physician Member Role: Informed Provider Address: Address: [address] [place] [address]- [place] Name: Dougie Mary RN Position: Nurse Member Role: ED Nurse Name: Angela Ramos MD Position: Physician Member Role: Attending Physician Address: Address: [address] [place] [id number]- Care Team Related Persons Name: BRICE SCOTT Address: Alternate [address] [facility], [id number] Address: Home [address] [facility], [id number] Name: BRICE SCOTT Address: Alternate [address] [facility], [id number] Address: Home [address] [facility], [id number] Name: VIKTOR WHITE Address: [address]ate [address] [facility], [id number] Address: Home [address] [facility], [id number] Name: JIMI CANSECO Name: CHIDI CANSECO Address: Home [address] [place], [place] [id number]
[2023-07-16 09:42] LABS: Abs Immature Grans 0.02 10^3/uL (0.0-0.06); Absolute Basophil Count 0.08 10^3/uL (0.0-0.2); Absolute Eosinophil Count 0.53 10^3/uL (0.0-0.7); Absolute Lymphocyte Count 1.08 10^3/uL (1.2-3.4); Absolute Monocyte Count 1.27 10^3/uL (0.1-0.8); Absolute Neutrophil Count 6.28 10^3/uL (1.2-6.7); Basophils % 0.9; Eosinophils % 5.7; HCT 42.4 % (40.0-50.0); HGB 13.9 g/dL (13.5-17.5); Immature Grans % 0.2; Lymphocytes % 11.7; MCH 30.1 pg (27.0-33.0); MCHC 32.8 % (32.0-36.0); MCV 92 fL (80-95); MPV 9.7 fL (8.0-11.0); Monocytes % 13.7; Neutrophils % 67.8; Platelet Count 248 10^3/uL (130-400); RBC 4.62 10^6/uL (4.36-5.78); RDW 13.5 % (11.8-14.1); RDW-SD 45.2 fL; WBC 9.26 10^3/uL (4.4-10.8)
[2023-07-16 10:07] LABS: ALT 19 U/L (16-63); AST 16 U/L (15-37); Albumin 3.5 g/dL (3.4-5.0); Alkaline Phosphatase 100 U/L (46-116); Anion Gap 6.1 mmol/L (3-11); BUN 17 mg/dL (7-18); Bilirubin, Total 0.6 mg/dL (0.2-1.0); CO2 29.9 mmol/L (21.0-32.0); CREATININE 0.9 mg/dL (0.70-1.30); Calcium 9.1 mg/dL (8.5-10.1); Chloride 104 mmol/L (98-107); Estimated GFR 85.27 (mL/min/1.73m2); FREE T4 0.96 ng/dL (0.76-1.46); Glucose 81 mg/dL (74-106); Magnesium 2.2 mg/dL (1.8-2.4); Potassium 4.1 mmol/L (3.5-5.1); Sodium 140 mmol/L (136-145); TSH 1.31 uIU/mL (0.36-3.74); Total Protein 7.7 g/dL (6.4-8.2)
== END 2023-07-16 03:56 | disposition home or self-care (01) ==
LOC: LBO 03:55
PROVIDERS: PCP Internal Medicine; Visit Provider Internal Medicine Medical Oncology
DX: Z79.899 Other long term (current) drug therapy (principal); C79.51 Secondary malignant neoplasm of bone
CPT/HCPCS: 36415; 80053; 83735; 84439; 84443; 85025

== ENCOUNTER 2023-08-08 01:44 | Outpatient (CLI) | payer MEDICARE, SELFPAY ==
[2023-08-08 08:58] LABS: Abs Immature Grans 0.02 10^3/uL (0.0-0.06); Absolute Basophil Count 0.08 10^3/uL (0.0-0.2); Absolute Eosinophil Count 0.35 10^3/uL (0.0-0.7); Absolute Lymphocyte Count 0.93 10^3/uL (1.2-3.4); Absolute Monocyte Count 0.92 10^3/uL (0.1-0.8); Absolute Neutrophil Count 5.18 10^3/uL (1.2-6.7); Basophils % 1.1; Eosinophils % 4.7; HCT 41.6 % (40.0-50.0); HGB 13.4 g/dL (13.5-17.5); Immature Grans % 0.3; Lymphocytes % 12.4; MCH 29.6 pg (27.0-33.0); MCHC 32.2 % (32.0-36.0); MCV 92 fL (80-95); MPV 9.4 fL (8.0-11.0); Monocytes % 12.3; Neutrophils % 69.2; Platelet Count 229 10^3/uL (130-400); RBC 4.52 10^6/uL (4.36-5.78); RDW 13.4 % (11.8-14.1); RDW-SD 45.6 fL; WBC 7.48 10^3/uL (4.4-10.8)
[2023-08-08 09:22] LABS: ALT 15 U/L (16-63); AST 16 U/L (15-37); Albumin 3.5 g/dL (3.4-5.0); Alkaline Phosphatase 97 U/L (46-116); Anion Gap 4.6 mmol/L (3-11); BUN 18 mg/dL (7-18); Bilirubin, Total 0.7 mg/dL (0.2-1.0); CO2 31.4 mmol/L (21.0-32.0); CREATININE 0.9 mg/dL (0.70-1.30); Calcium 8.9 mg/dL (8.5-10.1); Chloride 104 mmol/L (98-107); Estimated GFR 85.27 (mL/min/1.73m2); FREE T4 0.95 ng/dL (0.76-1.46); Glucose 118 mg/dL (74-106); Magnesium 2.2 mg/dL (1.8-2.4); Potassium 4.6 mmol/L (3.5-5.1); Sodium 140 mmol/L (136-145); TSH 0.93 uIU/mL (0.36-3.74); Total Protein 7.7 g/dL (6.4-8.2)
== END 2023-08-08 01:45 | disposition home or self-care (01) ==
LOC: LBO 01:45
PROVIDERS: PCP Internal Medicine; Visit Provider Internal Medicine Medical Oncology
DX: C34.31 Malignant neoplasm of lower lobe, right bronchus or lung (principal); C79.51 Secondary malignant neoplasm of bone; Z79.899 Other long term (current) drug therapy
CPT/HCPCS: 36415; 80053; 83735; 84439; 84443; 85025

== ENCOUNTER 2023-08-27 11:07 | Outpatient (CLI) | payer MEDICARE, SELFPAY ==
[2023-08-27 10:00] LABS: Abs Immature Grans 0.03 10^3/uL (0.0-0.06); Absolute Eosinophil Count 0.56 10^3/uL (0.0-0.7); Absolute Lymphocyte Count 1.22 10^3/uL (1.2-3.4); Absolute Monocyte Count 1.01 10^3/uL (0.1-0.8); Absolute Neutrophil Count 6.51 10^3/uL (1.2-6.7); Basophils % 1.1; Eosinophils % 5.9; HCT 42.8 % (40.0-50.0); HGB 13.8 g/dL (13.5-17.5); Immature Grans % 0.3; Lymphocytes % 12.9; MCH 29.9 pg (27.0-33.0); MCHC 32.2 % (32.0-36.0); MCV 93 fL (80-95); MPV 9.4 fL (8.0-11.0); Monocytes % 10.7; Neutrophils % 69.1; Platelet Count 227 10^3/uL (130-400); RBC 4.62 10^6/uL (4.36-5.78); RDW 13.6 % (11.8-14.1); RDW-SD 45.9 fL; WBC 9.43 10^3/uL (4.4-10.8)
[2023-08-27 10:42] LABS: ALT 14 U/L (16-63); AST 15 U/L (15-37); Albumin 3.7 g/dL (3.4-5.0); Alkaline Phosphatase 115 U/L (46-116); Anion Gap 5.3 mmol/L (3-11); BUN 18 mg/dL (7-18); Bilirubin, Total 0.6 mg/dL (0.2-1.0); CO2 29.7 mmol/L (21.0-32.0); CREATININE 0.8 mg/dL (0.70-1.30); Calcium 8.9 mg/dL (8.5-10.1); Chloride 105 mmol/L (98-107); Estimated GFR 88.36 (mL/min/1.73m2); FREE T4 1.04 ng/dL (0.76-1.46); Glucose 101 mg/dL (74-106); Magnesium 2.4 mg/dL (1.8-2.4); Potassium 4.5 mmol/L (3.5-5.1); Sodium 140 mmol/L (136-145); TSH 1.21 uIU/mL (0.36-3.74)
== END 2023-08-27 11:08 | disposition home or self-care (01) ==
LOC: LBO 11:08
PROVIDERS: PCP Internal Medicine; Visit Provider Internal Medicine Medical Oncology
DX: Z79.899 Other long term (current) drug therapy (principal)
CPT/HCPCS: 36415; 80053; 83735; 84439; 84443; 85025

== ENCOUNTER 2023-09-17 12:01 | Outpatient (CLI) | payer MEDICARE, SELFPAY ==
[2023-09-17 10:07] LABS: Abs Immature Grans 0.02 10^3/uL (0.0-0.06); Absolute Basophil Count 0.11 10^3/uL (0.0-0.2); Absolute Eosinophil Count 0.64 10^3/uL (0.0-0.7); Absolute Monocyte Count 0.95 10^3/uL (0.1-0.8); Basophils % 1.4; HCT 41.3 % (40.0-50.0); HGB 13.6 g/dL (13.5-17.5); Immature Grans % 0.2; Lymphocytes % 13.7; MCH 30.4 pg (27.0-33.0); MCHC 32.9 % (32.0-36.0); MCV 92 fL (80-95); MPV 9.6 fL (8.0-11.0); Monocytes % 11.8; Neutrophils % 64.9; Platelet Count 240 10^3/uL (130-400); RBC 4.47 10^6/uL (4.36-5.78); RDW 13.3 % (11.8-14.1); RDW-SD 45.1 fL; WBC 8.02 10^3/uL (4.4-10.8)
[2023-09-17 10:30] LABS: ALT 88 U/L (16-63); AST 91 U/L (15-37); Albumin 3.5 g/dL (3.4-5.0); Alkaline Phosphatase 199 U/L (46-116); Anion Gap 5.4 mmol/L (3-11); BUN 17 mg/dL (7-18); Bilirubin, Total 0.6 mg/dL (0.2-1.0); CO2 30.6 mmol/L (21.0-32.0); CREATININE 0.8 mg/dL (0.70-1.30); Calcium 9.2 mg/dL (8.5-10.1); Chloride 103 mmol/L (98-107); Estimated GFR 88.36 (mL/min/1.73m2); FREE T4 0.96 ng/dL (0.76-1.46); Glucose 105 mg/dL (74-106); Magnesium 2.2 mg/dL (1.8-2.4); Potassium 4.8 mmol/L (3.5-5.1); Sodium 139 mmol/L (136-145); TSH 2.12 uIU/mL (0.36-3.74); Total Protein 7.8 g/dL (6.4-8.2)
== END 2023-09-17 12:02 | disposition home or self-care (01) ==
LOC: LBO 12:01
PROVIDERS: PCP Internal Medicine; Visit Provider Internal Medicine Medical Oncology
DX: Z79.899 Other long term (current) drug therapy (principal)
CPT/HCPCS: 36415; 80053; 83735; 84439; 84443; 85025

== ENCOUNTER 2023-10-08 12:15 | Outpatient (CLI) | payer MEDICARE, SELFPAY ==
[2023-10-08 10:10] LABS: Abs Immature Grans 0.02 10^3/uL (0.0-0.06); Absolute Basophil Count 0.08 10^3/uL (0.0-0.2); Absolute Eosinophil Count 0.38 10^3/uL (0.0-0.7); Absolute Lymphocyte Count 1.32 10^3/uL (1.2-3.4); Absolute Monocyte Count 1.09 10^3/uL (0.1-0.8); Absolute Neutrophil Count 6.35 10^3/uL (1.2-6.7); Basophils % 0.9; Eosinophils % 4.1; HCT 43.8 % (40.0-50.0); HGB 14.4 g/dL (13.5-17.5); Immature Grans % 0.2; Lymphocytes % 14.3; MCH 30.4 pg (27.0-33.0); MCHC 32.9 % (32.0-36.0); MCV 92 fL (80-95); MPV 9.7 fL (8.0-11.0); Monocytes % 11.8; Neutrophils % 68.7; Platelet Count 251 10^3/uL (130-400); RBC 4.74 10^6/uL (4.36-5.78); RDW-SD 44.4 fL; WBC 9.24 10^3/uL (4.4-10.8)
[2023-10-08 10:42] LABS: ALT 15 U/L (16-63); AST 13 U/L (15-37); Albumin 3.7 g/dL (3.4-5.0); Alkaline Phosphatase 106 U/L (46-116); Anion Gap 7.4 mmol/L (3-11); BUN 19 mg/dL (7-18); Bilirubin, Total 0.6 mg/dL (0.2-1.0); CO2 30.6 mmol/L (21.0-32.0); CREATININE 0.9 mg/dL (0.70-1.30); Calcium 9.2 mg/dL (8.5-10.1); Chloride 103 mmol/L (98-107); Estimated GFR 85.27 (mL/min/1.73m2); FREE T4 1.01 ng/dL (0.76-1.46); Glucose 91 mg/dL (74-106); Potassium 4.7 mmol/L (3.5-5.1); Sodium 141 mmol/L (136-145); TSH 1.54 uIU/mL (0.36-3.74); Total Protein 7.9 g/dL (6.4-8.2)
== END 2023-10-08 12:16 | disposition home or self-care (01) ==
LOC: LBO 12:16
PROVIDERS: PCP Internal Medicine; Visit Provider Internal Medicine Medical Oncology
DX: Z79.899 Other long term (current) drug therapy (principal); C43.31 Malignant melanoma of nose
CPT/HCPCS: 36415; 80053; 83735; 84439; 84443; 85025

== ENCOUNTER 2023-10-29 05:32 | Outpatient (CLI) | payer MEDICARE, SELFPAY ==
[2023-10-29 08:44] LABS: Abs Immature Grans 0.06 10^3/uL (0.0-0.06); Absolute Basophil Count 0.07 10^3/uL (0.0-0.2); Absolute Eosinophil Count 0.38 10^3/uL (0.0-0.7); Absolute Lymphocyte Count 0.96 10^3/uL (1.2-3.4); Absolute Monocyte Count 1.04 10^3/uL (0.1-0.8); Absolute Neutrophil Count 6.12 10^3/uL (1.2-6.7); Basophils % 0.8; Eosinophils % 4.4; HCT 43.7 % (40.0-50.0); Immature Grans % 0.7; Lymphocytes % 11.1; MCH 30.8 pg (27.0-33.0); MCV 96 fL (80-95); MPV 9.6 fL (8.0-11.0); Monocytes % 12.1; Neutrophils % 70.9; Platelet Count 280 10^3/uL (130-400); RBC 4.55 10^6/uL (4.36-5.78); RDW 12.6 % (11.8-14.1); WBC 8.63 10^3/uL (4.4-10.8)
[2023-10-29 09:11] LABS: ALT 199 U/L (16-63); AST 106 U/L (15-37); Albumin 3.2 g/dL (3.4-5.0); Alkaline Phosphatase 537 U/L (46-116); Anion Gap 6.1 mmol/L (3-11); BUN 19 mg/dL (7-18); CO2 31.9 mmol/L (21.0-32.0); Calcium 9.2 mg/dL (8.5-10.1); Chloride 103 mmol/L (98-107); Estimated GFR 75.14 (mL/min/1.73m2); FREE T4 1.09 ng/dL (0.76-1.46); Glucose 108 mg/dL (74-106); Magnesium 2.3 mg/dL (1.8-2.4); Potassium 4.1 mmol/L (3.5-5.1); Sodium 141 mmol/L (136-145); TSH 1.66 uIU/Ml (0.36-3.74); Total Protein 8.2 g/dL (6.4-8.2)
== END 2023-10-29 05:33 | disposition home or self-care (01) ==
LOC: LBO 05:32
PROVIDERS: PCP Internal Medicine; Visit Provider Internal Medicine Medical Oncology
DX: Z79.899 Other long term (current) drug therapy (principal); C34.31 Malignant neoplasm of lower lobe, right bronchus or lung
CPT/HCPCS: 36415; 80053; 83735; 84439; 84443; 85025

== ENCOUNTER 2023-12-10 05:37 | Outpatient (CLI) | payer MEDICARE, SELFPAY ==
[2023-12-10 07:40] LABS: Abs Immature Grans 0.23 10^3/uL (0.0-0.06); Absolute Basophil Count 0.07 10^3/uL (0.0-0.2); Absolute Eosinophil Count 0.09 10^3/uL (0.0-0.7); Absolute Lymphocyte Count 1.54 10^3/uL (1.2-3.4); Absolute Monocyte Count 1.31 10^3/uL (0.1-0.8); Absolute Neutrophil Count 10.29 10^3/uL (1.2-6.7); Basophils % 0.5; Eosinophils % 0.7; HCT 45.8 % (40.0-50.0); HGB 14.8 g/dL (13.5-17.5); Immature Grans % 1.7; Lymphocytes % 11.4; MCH 31.2 pg (27.0-33.0); MCHC 32.3 % (32.0-36.0); MCV 96 fL (80-95); MPV 9.6 fL (8.0-11.0); Monocytes % 9.7; Platelet Count 214 10^3/uL (130-400); RBC 4.75 10^6/uL (4.36-5.78); RDW-SD 50.5 fL; WBC 13.54 10^3/uL (4.4-10.8)
[2023-12-10 08:04] LABS: ALT 70 U/L (16-63); AST 27 U/L (15-37); Albumin 3.2 g/dL (3.4-5.0); Alkaline Phosphatase 171 U/L (46-116); Anion Gap 5.2 mmol/L (3-11); BUN 25 mg/dL (7-18); Bilirubin, Total 0.5 mg/dL (0.2-1.0); CO2 33.8 mmol/L (21.0-32.0); CREATININE 0.9 mg/dL (0.70-1.30); Calcium 8.9 mg/dL (8.5-10.1); Chloride 103 mmol/L (98-107); Estimated GFR 85.27 (mL/min/1.73m2); FREE T4 0.99 ng/dL (0.76-1.46); Glucose 106 mg/dL (74-106); Magnesium 2.1 mg/dL (1.8-2.4); Potassium 4.1 mmol/L (3.5-5.1); Sodium 142 mmol/L (136-145); TSH 2.65 uIU/Ml (0.36-3.74)
== END 2023-12-10 05:38 | disposition home or self-care (01) ==
PROVIDERS: PCP Internal Medicine; Visit Provider Internal Medicine Medical Oncology
DX: Z79.899 Other long term (current) drug therapy (principal); C79.51 Secondary malignant neoplasm of bone
CPT/HCPCS: 36415; 80053; 83735; 84439; 84443; 85025

== ENCOUNTER 2024-01-09 05:04 | Outpatient (CLI) | payer MEDICARE, SELFPAY ==
[2024-01-09 14:01] LABS: Abs Immature Grans 0.13 10^3/uL (0.0-0.06); Absolute Basophil Count 0.01 10^3/uL (0.0-0.2); Absolute Lymphocyte Count 0.61 10^3/uL (1.2-3.4); Absolute Neutrophil Count 9.82 10^3/uL (1.2-6.7); Basophils % 0.1 %; HGB 15.2 g/dL (13.5-17.5); Immature Grans % 1.2 %; Lymphocytes % 5.5 %; MCH 31.3 pg (27.0-33.0); MCV 95 fL (80-95); MPV 9.9 fL (8.0-11.0); Monocytes % 4.9 %; Neutrophils % 88.3 %; Platelet Count 199 10^3/uL (130-400); RBC 4.86 10^6/uL (4.36-5.78); RDW 14.8 % (11.8-14.1); RDW-SD 51.3 fL; WBC 11.12 10^3/uL (4.4-10.8)
[2024-01-09 14:02] LABS: Absolute Monocyte Count 0.54 10^3/uL (0.1-0.8)
[2024-01-09 15:24] LABS: ALT 61 U/L (16-63); AST 19 U/L (15-37); Albumin 3.5 g/dL (3.4-5.0); Alkaline Phosphatase 143 U/L (46-116); Anion Gap 8.4 mmol/L (3-11); BUN 28 mg/dL (7-18); Bilirubin, Total 0.7 mg/dL (0.2-1.0); CO2 30.6 mmol/L (21.0-32.0); CREATININE 1.1 mg/dL (0.70-1.30); Calcium 8.8 mg/dL (8.5-10.1); Chloride 103 mmol/L (98-107); Estimated GFR 67.02 (mL/min/1.73m2); FREE T4 0.88 ng/dL (0.76-1.46); Glucose 121 mg/dL (74-106); Magnesium 2.2 mg/dL (1.8-2.4); Potassium 4.5 mmol/L (3.5-5.1); Sodium 142 mmol/L (136-145); TSH 0.54 uIU/Ml (0.36-3.74)
== END 2024-01-09 05:05 | disposition home or self-care (01) ==
LOC: LBO 05:04
PROVIDERS: PCP Internal Medicine; Visit Provider Internal Medicine Medical Oncology
DX: Z79.899 Other long term (current) drug therapy (principal); C34.31 Malignant neoplasm of lower lobe, right bronchus or lung
CPT/HCPCS: 36415; 80053; 83735; 84439; 84443; 85025

== ENCOUNTER 2024-01-28 05:50 | Outpatient (CLI) | payer MEDICARE, SELFPAY ==
[2024-01-28 13:49] LABS: Abs Immature Grans 0.86 10^3/uL (0.0-0.06); HCT 47.4 % (40.0-50.0); HGB 15.8 g/dL (13.5-17.5); MCH 31.9 pg (27.0-33.0); MCHC 33.3 % (32.0-36.0); MCV 96 fL (80-95); Platelet Count 210 10^3/uL (130-400); RBC 4.96 10^6/uL (4.36-5.78); RDW 15.3 % (11.8-14.1); RDW-SD 53.5 fL; WBC 13.39 10^3/uL (4.4-10.8)
[2024-01-28 14:24] LABS: Absolute Eosinophil Count 0.13 10^3/uL (0.0-0.7); Absolute Lymphocyte Count 2.14 10^3/uL (1.2-3.4); Absolute Monocyte Count 1.07 10^3/uL (0.1-0.8); Absolute Neutrophil Count 10.04 10^3/uL (1.2-6.7); Diff Comment Manual Differential; RBC Morphology Normal
[2024-01-28 14:51] LABS: ALT 75 U/L (16-63); AST 25 U/L (15-37); Albumin 3.3 g/dL (3.4-5.0); Alkaline Phosphatase 170 U/L (46-116); Anion Gap 9.7 mmol/L (3-11); BUN 36 mg/dL (7-18); Bilirubin, Total 0.6 mg/dL (0.2-1.0); CO2 29.3 mmol/L (21.0-32.0); CREATININE 1.3 mg/dL (0.70-1.30); Calcium 8.9 mg/dL (8.5-10.1); Chloride 105 mmol/L (98-107); Estimated GFR 54.85 (mL/min/1.73m2); FREE T4 0.85 ng/dL (0.76-1.46); Glucose 83 mg/dL (74-106); Magnesium 2.2 mg/dL (1.8-2.4); Sodium 144 mmol/L (136-145); TSH 3.38 uIU/Ml (0.36-3.74); Total Protein 6.8 g/dL (6.4-8.2)
== END 2024-01-28 05:51 | disposition home or self-care (01) ==
LOC: LBO 05:50
PROVIDERS: PCP Internal Medicine; Visit Provider Internal Medicine Medical Oncology
DX: Z79.899 Other long term (current) drug therapy (principal); C34.31 Malignant neoplasm of lower lobe, right bronchus or lung; C79.51 Secondary malignant neoplasm of bone
CPT/HCPCS: 36415; 80053; 83735; 84439; 84443; 85025

== ENCOUNTER 2024-02-18 03:23 | Outpatient (CLI) | payer MEDICARE, SELFPAY ==
[2024-02-18 12:35] LABS: Abs Immature Grans 0.59 10^3/uL (0.0-0.06); Absolute Basophil Count 0.07 10^3/uL (0.0-0.2); Absolute Eosinophil Count 0.05 10^3/uL (0.0-0.7); Absolute Lymphocyte Count 0.93 10^3/uL (1.2-3.4); Absolute Monocyte Count 0.62 10^3/uL (0.1-0.8); Basophils % 0.5 %; Eosinophils % 0.4 %; HCT 40.4 % (40.0-50.0); Immature Grans % 4.4 %; Lymphocytes % 6.9 %; MCH 31.3 pg (27.0-33.0); MCHC 32.2 % (32.0-36.0); MCV 97 fL (80-95); MPV 9.5 fL (8.0-11.0); Monocytes % 4.6 %; Neutrophils % 83.2 %; Nucleated RBC 0.1 % (0.0-0.3); Platelet Count 268 10^3/uL (130-400); RBC 4.15 10^6/uL (4.36-5.78); RDW 15.2 % (11.8-14.1); RDW-SD 53.9 fL; WBC 13.52 10^3/uL (4.4-10.8)
[2024-02-18 12:36] LABS: Absolute Neutrophil Count 11.25 10^3/uL (1.2-6.7)
[2024-02-18 12:52] LABS: Diff Comment Diff Reviewed; RBC Morphology Normal
[2024-02-18 13:09] LABS: ALT 38 U/L (16-63); AST 17 U/L (15-37); Alkaline Phosphatase 150 U/L (46-116); BUN 27 mg/dL (7-18); Bilirubin, Total 0.47 mg/dL (0.2-1.0); CREATININE 0.9 mg/dL (0.70-1.30); Calcium 9.1 mg/dL (8.5-10.1); Chloride 103 mmol/L (98-107); Estimated GFR 85.27 (mL/min/1.73m2); FREE T4 1.05 ng/dL (0.76-1.46); Glucose 153 mg/dL (74-106); Magnesium 2.1 mg/dL (1.8-2.4); Potassium 4.3 mmol/L (3.5-5.1); Sodium 142 mmol/L (136-145); Total Protein 7.1 g/dL (6.4-8.2)
== END 2024-02-18 03:24 | disposition home or self-care (01) ==
LOC: LBO 03:23
PROVIDERS: PCP Internal Medicine; Visit Provider Internal Medicine Medical Oncology
DX: Z79.899 Other long term (current) drug therapy (principal); C34.31 Malignant neoplasm of lower lobe, right bronchus or lung; C79.51 Secondary malignant neoplasm of bone
CPT/HCPCS: 36415; 80053; 83735; 84439; 84443; 85025

== ENCOUNTER 2024-03-12 02:35 | Outpatient (CLI) | payer MEDICARE, SELFPAY ==
[2024-03-12 08:01] LABS: Abs Immature Grans 0.09 10^3/uL (0.0-0.06); Absolute Basophil Count 0.05 10^3/uL (0.0-0.2); Absolute Eosinophil Count 0.17 10^3/uL (0.0-0.7); Absolute Lymphocyte Count 0.81 10^3/uL (1.2-3.4); Absolute Monocyte Count 0.72 10^3/uL (0.1-0.8); Absolute Neutrophil Count 5.64 10^3/uL (1.2-6.7); Basophils % 0.7 %; Eosinophils % 2.3 %; HCT 34.4 % (40.0-50.0); Immature Grans % 1.2 %; Lymphocytes % 10.8 %; MCH 31.1 pg (27.0-33.0); MCV 97 fL (80-95); MPV 9.4 fL (8.0-11.0); Monocytes % 9.6 %; Neutrophils % 75.4 %; Platelet Count 278 10^3/uL (130-400); RBC 3.54 10^6/uL (4.36-5.78); RDW 14.1 % (11.8-14.1); RDW-SD 50.4 fL; WBC 7.48 10^3/uL (4.4-10.8)
[2024-03-12 09:36] LABS: ALT 23 U/L (16-63); AST 17 U/L (15-37); Albumin 2.8 g/dL (3.4-5.0); Alkaline Phosphatase 137 U/L (46-116); Anion Gap 6.6 mmol/L (3-11); BUN 11 mg/dL (7-18); Bilirubin, Total 0.49 mg/dL (0.2-1.0); CO2 30.4 mmol/L (21.0-32.0); Calcium 8.8 mg/dL (8.5-10.1); Chloride 103 mmol/L (98-107); Estimated GFR 75.14 (mL/min/1.73m2); FREE T4 1.23 ng/dL (0.76-1.46); Glucose 116 mg/dL (74-106); Potassium 3.8 mmol/L (3.5-5.1); Sodium 140 mmol/L (136-145); TSH 0.68 uIU/Ml (0.36-3.74); Total Protein 7.7 g/dL (6.4-8.2)
== END 2024-03-12 02:36 | disposition home or self-care (01) ==
LOC: LBO 02:36
PROVIDERS: PCP Internal Medicine; Visit Provider Internal Medicine Medical Oncology
DX: Z79.899 Other long term (current) drug therapy (principal); C34.31 Malignant neoplasm of lower lobe, right bronchus or lung
CPT/HCPCS: 36415; 80053; 84439; 84443; 85025

== ENCOUNTER 2024-03-31 15:29 | Outpatient (CLI) | payer MEDICARE, SELFPAY ==
[2024-03-31 12:08] LABS: Absolute Basophil Count 0.02 10^3/uL (0.0-0.2); Absolute Eosinophil Count 0.02 10^3/uL (0.0-0.7); Absolute Lymphocyte Count 0.53 10^3/uL (1.2-3.4); Absolute Neutrophil Count 13.95 10^3/uL (1.2-6.7); Basophils % 0.1 %; Eosinophils % 0.1 %; HCT 43.1 % (40.0-50.0); HGB 13.5 g/dL (13.5-17.5); Immature Grans % 1.3 %; Lymphocytes % 3.5 %; MCH 31.4 pg (27.0-33.0); MCHC 31.3 % (32.0-36.0); MCV 100 fL (80-95); MPV 10.3 fL (8.0-11.0); Monocytes % 3.3 %; Neutrophils % 91.7 %; Platelet Count 171 10^3/uL (130-400); RDW 15.2 % (11.8-14.1); RDW-SD 56.3 fL; WBC 15.21 10^3/uL (4.4-10.8)
[2024-03-31 12:31] LABS: ALT 39 U/L (16-63); AST 17 U/L (15-37); Albumin 3.2 g/dL (3.4-5.0); Alkaline Phosphatase 114 U/L (46-116); BUN 19 mg/dL (7-18); Bilirubin, Total 0.46 mg/dL (0.2-1.0); CREATININE 0.9 mg/dL (0.70-1.30); Calcium 8.6 mg/dL (8.5-10.1); Chloride 105 mmol/L (98-107); Estimated GFR 85.27 (mL/min/1.73m2); FREE T4 1.03 ng/dL (0.76-1.46); Glucose 114 mg/dL (74-106); Potassium 4.2 mmol/L (3.5-5.1); Sodium 142 mmol/L (136-145); TSH 0.39 uIU/Ml (0.36-3.74); Total Protein 6.7 g/dL (6.4-8.2)
== END 2024-03-31 15:30 | disposition home or self-care (01) ==
LOC: LBO 04-09 15:30
PROVIDERS: PCP Internal Medicine; Visit Provider Internal Medicine Medical Oncology
DX: C34.31 Malignant neoplasm of lower lobe, right bronchus or lung (principal); Z79.899 Other long term (current) drug therapy
CPT/HCPCS: 36415; 80053; 84439; 84443; 85025